=== PATIENT | female | born 1960 | race Caucasian/White ===

== ENCOUNTER → 2024-04-24 08:46 | Outpatient (REF) | payer MEDICARE, OTHER, SELFPAY ==
[2024-04-24 09:48] LABS: % Eosinophils 4.7 % (0-6); % Immature Granulocytes 0.3 % (0-0.5); % Lymphocytes 27.5 % (20.5-51.1); % Monocytes 5.7 % (1.7-9.3); % Neutrophils 60.8 % (42.2-75.2); Absolute Basophils 0.1 10^3/uL (0-0.2); Absolute Eosinophils 0.3 10^3/uL (0-0.7); Absolute Lymphocytes 1.7 10^3/uL (1.2-3.4); Absolute Monocytes 0.4 10^3/uL (0.1-0.6); Absolute Neutrophils 3.8 10^3/uL (1.4-6.5); Hematocrit 39.7 % (37.0-47.0); Hemoglobin 13.9 g/dL (12.0-16.0); Mean Corpuscular Hgb 36.2 pg (27.0-31.0); Mean Corpuscular Volume 103.4 fL (81.0-99.0); Mean Platelet Volume 9.8 fL (7.4-10.4); Nucleated Red Blood Cells % 0 %; Platelet Count 266 10^3/uL (130-400); Red Blood Cell Count 3.84 10^6/uL (4.20-5.40); Red Cell Dist. Width 12.4 % (11.5-14.5); White Blood Cell Count 6.2 10^3/uL (4.8-10.8)
[2024-04-24 09:52] LABS: Urine Albumin Negative (Neg - Trace); Urine Bilirubin Negative (Negative); Urine Character Slightly Cloudy (Clear); Urine Color Yellow; Urine Glucose Negative (Negative); Urine Ketone Negative (Negative); Urine Leukocyte 2+ (Negative); Urine Nitrite Negative (Negative); Urine Occult Blood Trace (Negative); Urine Urobilinogen Negative (Neg - 1+)
[2024-04-24 10:14] LABS: ALT (SGPT) 15 U/L (0-35); AST (SGOT) 19 U/L (14-36); Albumin 4.1 g/dl (3.5-5.0); Alkaline Phosphatase 72 U/L (38-126); Blood Urea Nitrogen 15 mg/dl (7-17); Calcium 9.7 mg/dl (8.4-10.2); Carbon Dioxide 22 mmol/L (22-30); Chloride 108 mmol/L (98-107); Glucose 102 mg/dl (70-99); HDL Cholesterol 58 mg/dl; LDL Cholesterol, Calculated 102 mg/dl; Potassium 4.6 mmol/L (3.5-5.1); Sodium 137 mmol/L (135-145); Total Bilirubin 0.8 mg/dl (0.2-1.3); Total Cholesterol 179 mg/dl (50-199); Total Protein 6.2 g/dl (6.3-8.2); Triglyceride 95 mg/dl (10-149); Very Low Density Lipoprotein 19 mg/dl (0-30); eGFR > 60.00
[2024-04-24 10:43] LABS: TSH 0.06 uIU/ml (0.47-4.68)
[2024-04-24 11:28] LABS: Microalbumin, Random Urine 3.8 mg/dl (0.6-1.7)
[2024-04-24 15:09] LABS: Glycohemoglobin (HgbA1c) 5.1 % (4.0-5.6)
[2024-04-24 15:10] LABS: Urine Squamous Cell >30 /LPF (Few)
[2024-04-24 15:31] LABS: Urine Amorphous Seen; Urine Bacteria Many (Negative); Urine Red Blood Cell 0-2 /HPF (0-2); Urine White Cell 80-90 /HPF (0-5)
== END ==
LOC: REG 08:46
PROVIDERS: ATTENDING PHYSICIAN Nurse Practitioner Family
DX: Z00.00 Encounter for general adult medical examination without abnormal findings (principal); E78.2 Mixed hyperlipidemia; E03.9 Hypothyroidism, unspecified; Z13.89 Encounter for screening for other disorder; E11.69 Type 2 diabetes mellitus with other specified complication; Z13.0 Encounter for screening for diseases of the blood and blood-forming organs and certain disorders involving the immune mechanism; R73.03 Prediabetes
CPT/HCPCS: 36415; 80053; 80061; 81003; 81015; 82043; 83036; 84443; 85025

== ENCOUNTER → 2024-05-08 12:08 | Outpatient (REF) | payer MEDICARE, OTHER, SELFPAY | LOC: PAVMRI 12:08 | PROVIDERS: ATTENDING PHYSICIAN Orthopaedic Surgery; PRIMARYCARE PHYSICIAN Nurse Practitioner Family | DX: M48.062 Spinal stenosis, lumbar region with neurogenic claudication (principal) | CPT/HCPCS: 72158; A9575 ==

== ENCOUNTER 2024-07-18 04:52 | Inpatient (IN) | payer MEDICARE, OTHER, SELFPAY ==
[2024-07-18] VITALS (18 sets, daily range): BP systolic 111–170; BP diastolic 82–126; BMI 36.3; BMI 33.7
--- NOTE | 2024-07-18 01:31 | ED.GENMED ---
History of Present Illness
General
Chief Complaint: Breathing Problem
Source: patient and spouse
Exam Limitations: none
Time Seen by Provider: 07/18/24 01:25
Nursing documentation reviewed up to this point in time: agreed with
History of Present Illness
History of Present Illness:
63-year-old female with a past medical history of hypertension, asthma, hypothyroidism who presents to the emergency room for evaluation of shortness of breath. Patient reports that symptoms have been gradually worsening since Saturday but became
acutely worse tonight while she was walking upstairs about an hour ago. She says that she has shortness of breath and wheezing associated with frequent cough. She says triggers are mold, pet dander. She says that she has frequent flareups and is
on as needed albuterol as well as Spiriva. Has been using these without relief. She says symptoms today seem consistent with prior asthma exacerbations. She denies any chest pain. She denies any swelling or pain in the legs. She denies any
fevers or chills or recent URI symptoms. She denies any other complaints.
Review of Systems
Review of Systems
All Other Systems: ROS reviewed and negative except as documented in HPI and ROS
Constitutional: Denies fever or chills
Respiratory: Reports cough and trouble breathing
Cardiac: Denies chest pain or palpitations
ABD/GI: Denies abdominal pain, nausea or vomiting
: Denies flank pain
Musculoskeletal: Denies edema
Neurological: Denies dizzy or headache
Phy Exam
Physical Exam
Physical Exam:
General: Awake, alert, oriented x3; no acute distress
Head: Normocephalic, atraumatic
Eyes: Conjunctiva normal, sclera anicteric
Throat: Airway intact, handling secretions
Neck: Trachea midline, no JVD
Lungs: Patient is tachypneic with respiratory rate of 24-28; pulse ox acceptable on room air; patient is coughing occasionally during exam but on lung auscultation no significant wheezing appreciated, no rales or rhonchi
Heart: Tachycardia with regular rhythm, no murmurs, gallops, or rubs
Abd: Soft, non distended, nontender
Neuro: No gross deficits
Skin: no rash
Extremities: No edema in extremities, equal pulses in all extremities
Scores
Heart Failure Risk
Heart Failure Risk Score: Not Applicable
Heart Score for Chest Pain Patients
STEMI patient?: Not applicable
Withdrawal Assessment of Alcohol
Withdrawal Assessment Completed?: Not applicable
Course
Orders/Labs/Results
Orders:
Orders
07/18/24 01:25
Ipratropium/Albuterol Sulfate [Duoneb] 3 ml INH R NOW STA
MethylPREDNISolone PF [Solu-Medrol Pf] 125 mg IV NOW STA
07/18/24 01:26
CR Chest - 2 Views Urgent
Comment:
Reason For Exam: sob,cough
07/18/24 01:47
COVID-19 Antigen Urgent
Source: Nasal Swab
Complete Blood Count/With Diff Urgent
D-Dimer Urgent
PTT Urgent
Comment: ADD ON
Prothrombin Time Urgent
Comment: ADD ON
Influenza A+B Rapid Molecular Urgent
MILADIS Source: Nasal Swab
Specimen Description:
07/18/24 02:16
Comprehensive Metabolic Panel Urgent
07/18/24 02:20
CT Chest Pe Study Urgent
Comment:
Reason For Exam: sob, tachycardia, tachypnea
Ipratropium/Albuterol Sulfate [Duoneb] 3 ml INH R NOW STA
07/18/24 02:37
Electrocardiogram (*1) Urgent
Reason for Study: Shortness of Breath
EKG- Treatment ONCE
07/18/24 03:26
Heparin 8,200 units IV NOW STA
07/18/24 03:[address] Non Medication Order As Directed
Physician Order: PTT 6 hours after initial start of Heparin infusion
07/18/24 03:30
Heparin 25759 Units/250 ml 25,000 units in 250 ml IV PER PROTOCOL
Weight to be used for heparin protocol in kilograms (kg):: 102
Protocol:: DVT/PE
PTT Goal Range to be used:: PTT 73 to 111 seconds
Order type:: Initial
INITIAL Infusion Dose (UNITS/KG/hr) & then follow protocol:: 18 units/kg/hr
Infusion Dose in UNITS/hr & then follow protocol (UNITS/hr):: 1,800
INFUSION RATE in mL/hr & then follow protocol (mL/hr):: 18
For DVT/PE algorithm, re-bolus for low PTT?: Yes
PTT less than or equal to 64 seconds:: Re-bolus 80 units/kg (max 10,000units). Increase by 400 units/hr
(+ 4mL/hr)
PTT 64.1 to 72.9 seconds:: Re-bolus 40 units/kg (max 5,000 units). Increase by 200 units/hr
(+ 2mL/hr)
PTT 73 to 111 seconds:: Target Range. No change in rate.
PTT 111.1 to 130.9 seconds:: Decrease rate by 200 units/hr (- 2 mL/hr)
PTT 131 to 199.9 seconds:: HOLD for 1 hr. Then decrease by 300 units/hr (- 3mL/hr)
PTT greater than or equal to 200 seconds:: HOLD for 2 hrs & Notify Provider. Then decrease by 400 units/hr
(- 4mL/hr)
Lab follow-up:: Each change, PTT q6h until 2 consecutive are therapeutic. Then
PTT daily.
07/18/24 03:32
NT-proBNP Urgent
Troponin I Urgent
07/18/24 03:33
Add On- LAB Urgent
Tests Added?: pt/inr, ptt
07/18/24 03:40
Heparin 4,100 units IV PRN PRN
Heparin 8,200 units IV PRN PRN
07/18/24 04:00
Flush (0.9% Sodium Chloride) [Flush (Nss)] See Dose Instructions IV PER PROTOCOL
Abnormal Lab Results
07/18/24 07/18/24
01:47 02:16
WBC 11.1 H 10^3/uL
(4.8-10.8)
RBC 4.14 L 10^6/uL
(4.20-5.40)
MCH 33.1 H pg
(27.0-31.0)
Absolute Neuts (auto) 6.8 H 10^3/uL
(1.4-6.5)
Absolute Monos (auto) 0.8 H 10^3/uL
(0.1-0.6)
D-Dimer 2.29 H ug/mlFEU
(0.00-0.50)
Chloride 110 H mmol/L
(98-107)
Carbon Dioxide 16 L mmol/L
(22-30)
BUN 18 H mg/dl
(7-17)
Glucose 120 H mg/dl
(70-99)
Total Protein 6.1 L g/dl
(6.3-8.2)
07/18/24 01:47
07/18/24 02:16
Vital Signs
Initial and Last Documented VS:
Initial Vital Signs
Temp Pulse Resp BP Pulse Ox
36.8 C 112 24 161/100 96
07/18/24 01:15 07/18/24 01:15 07/18/24 01:15 07/18/24 01:15 07/18/24 01:15
Last Documented Vital Signs
Temp Pulse Resp BP Pulse Ox
36.8 C 123 23 133/86 95
07/18/24 01:15 07/18/24 03:45 07/18/24 03:45 07/18/24 03:37 07/18/24 03:45
MDM/Problems Addressed
Differential Diagnosis Includes:
Asthma exacerbation, pneumonia, PE, anemia, pulmonary edema/CHF
MDM/Problems Addressed:
63-year-old female presents to the emergency room for evaluation of shortness of breath associate with coughing that she says consistent with prior asthma flares. No relief with her home albuterol. She arrives to us hypertensive, tachycardic,
tachypneic. Physical exam as above�notably while she does have occasional coughing throughout exam she does not have notable wheezing. Could be a mild asthma flare but given absence of wheezing I think is reasonable to rule out alternate etiology.
Will place an IV send labs including a CBC and a CMP. Check a D-dimer. Check chest x-ray. Will treat with steroid as well as DuoNeb treatment. Monitor closely reassess after the above.
Initial labs reviewed: CBC shows marginal leukocytosis, CMP no clinically significant abnormalities. Chest x-ray no acute disease. D-dimer was positive�will proceed with CTA to rule out PE. Patient had slight improvement with DuoNeb but she says
effect is already wearing off�will repeat DuoNeb.
CTA chest reviewed by milena to be positive for right-sided PE. Awaiting final radiology report. Discussed with patient she has no history of DVT/PE. Added on coags, troponin, BNP. Plan to start heparin infusion. Pulse ox low normal
93-94%�placed on oxygen for comfort.
Case discussed with vision radiologist: Positive for bilateral PE right greater than left with some signs of right heart strain. PERT alert called. Plan to discuss with pulmonary.
Case discussed with pulmonary�they are reviewing imaging and will provide recommendations. Patient already on heparin drip. Case discussed with hospitalist for admission.
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 Updated hospitalist.
Chronic conditions affecting care:
Asthma
Acute Exacerbation and/or Progression of Chronic Illness:
Acutely hypertensive likely related to respiratory symptoms�will treat respiratory issues but hold on emergent antihypertensive therapy for now
Acute Exacerbation and/or Progression of Chronic Illness: HTN
*Radiology
Radiology exam reviewed: preliminary read by ED provider
*Pulse Oximetry
Patient hypoxic: no
*EKG
Interpreted by ED Provider?: Yes
Heart Rate: 113
Rate: tachycardiac
Rhythm: sinus and sinus tachycardia
Interval: normal interval
QRS Pattern: low voltage
Ischemia: no ischemia
*Critical Care Note
Total Time (30-74mins, 75-104mins- exclusive of procedures): Not Applicable
Data Reviewed
Review of Other/Old Records Reveals: Labs and Records
Source: patient and spouse
Patient Management
Discussion with other providers: Hospitalist (Discussed with hospitalist), General Office Dispatcher (Discussed with professor of violin) and Radiologist (Discussed with radiologist)
Escalation/DeEscalation of care consider admission/obs:
Admission indicated
ED Attending Note
-
Portions of this chart may have been created with voice recognition software.� Occasional wrong word or��sound alike� substitutions may have occurred due to the inherent limitations of voice recognition software.
Discharge Plan
Departure
Patient Disposition: Admit
Date of Disposition: 07/18/24
Time of Disposition: 03:46
Admit to doctor: Lexie
Presentation/result/management discussed w/ accepting MD/DO: Hospitalist
Discharge Problem:
Pulmonary embolism
Referrals:
Mary Moe CRNP [Family Provider] -
Interventions
Interventions:
*Risk Screen - Suicide Last Done: 07/18/24 01:15
*General Assessment Last Done: 07/18/24 01:15
*Neglect/Abuse Screening Last Done: 07/18/24 01:15
ED- Fall Risk Assessment Last Done: 07/18/24 01:15
*ED COVID-19 Vaccine History Last Done: 07/18/24 01:15
ED- Cardiac Assessment Last Done: 07/18/24 01:45
ED- Pulmonary Assessment Last Done: 07/18/24 01:45
Discharge Date and Time
Print Language: S[place]APORE[place]
[2024-07-18] MEDS: DUONEB 3 ML INH ×2 (01:38→02:23)
[2024-07-18] MEDS: SOLU-MEDROL PF 125 MG IV (01:45)
[2024-07-18 02:00] LABS: % Basophils 1.1 % (0-2); % Eosinophils 3.7 % (0-6); % Immature Granulocytes 0.2 % (0-0.5); % Lymphocytes 27.3 % (20.5-51.1); % Monocytes 6.8 % (1.7-9.3); % Neutrophils 60.9 % (42.2-75.2); Absolute Basophils 0.1 10^3/uL (0-0.2); Absolute Eosinophils 0.4 10^3/uL (0-0.7); Absolute Monocytes 0.8 10^3/uL (0.1-0.6); Absolute Neutrophils 6.8 10^3/uL (1.4-6.5); Hematocrit 40.4 % (37.0-47.0); Hemoglobin 13.7 g/dL (12.0-16.0); Mean Corp Hgb Conc. 33.9 g/dL (33.0-37.0); Mean Corpuscular Hgb 33.1 pg (27.0-31.0); Mean Corpuscular Volume 97.6 fL (81.0-99.0); Mean Platelet Volume 10.2 fL (7.4-10.4); Nucleated Red Blood Cells % 0 %; Platelet Count 205 10^3/uL (130-400); Red Blood Cell Count 4.14 10^6/uL (4.20-5.40); Red Cell Dist. Width 13.5 % (11.5-14.5); White Blood Cell Count 11.1 10^3/uL (4.8-10.8)
[2024-07-18 02:08] LABS: D-Dimer 2.29 ug/mlFEU (0.00-0.50)
[2024-07-18 02:22] LABS: COVID-19 Antigen Negative (Negative)
[2024-07-18 02:43] LABS: ALT (SGPT) 13 U/L (0-35); AST (SGOT) 17 U/L (14-36); Albumin 3.9 g/dl (3.5-5.0); Alkaline Phosphatase 75 U/L (38-126); Blood Urea Nitrogen 18 mg/dl (7-17); Calcium 8.9 mg/dl (8.4-10.2); Carbon Dioxide 16 mmol/L (22-30); Chloride 110 mmol/L (98-107); Estimated Creatinine Clearance 97 ml/min; Glucose 120 mg/dl (70-99); Potassium 4.2 mmol/L (3.5-5.1); Sodium 141 mmol/L (135-145); Total Bilirubin 0.4 mg/dl (0.2-1.3); Total Protein 6.1 g/dl (6.3-8.2); eGFR > 60.00
[2024-07-18 03:45] LABS: INR 1.09; PT 13.9 Sec (11.4-14.6)
[2024-07-18 03:46] LABS: APTT 25.1 Sec (23.4-35.0)
[2024-07-18] MEDS: HEPARIN 8200 UNITS IV ×2 (03:51→18:37)
[2024-07-18] MEDS: HEPARIN 25000 UNITS/250 ML IV ×2 (03:54→18:18)
[2024-07-18 04:03] LABS: NT-proBNP 5880 pg/ml; Troponin I 0.023 ng/ml
--- NOTE | 2024-07-18 04:53 | HPS.HSE ---
Family Physician
-
Family Physician: ROSEMARIE Guaman
Chief Complaint
-
Shortness of breath, dyspnea on exertion
History of Present Illness
This is a 63-year-old female with a past medical history of hypertension, hyperlipidemia, asthma that is well-controlled presents to the emergency department with worsening shortness of breath and dyspnea for the last 4 to 5 days.
Patient reported that she developed worsening shortness of breath and dyspnea about 4 days ago. She started using her inhaler and noticed that it was not helping. Usually in the past inhalers are very effective. She continues to have dyspnea on
exertion and today felt like she could not catch her breath at all so she decided to come to the emergency department. The patient denies feeling any chest pain. She reports some discomfort that she associates with breathing effort. She denied
any lower extremity swelling or calf tenderness. She denies feeling dizzy or lightheaded.
Patient denied any recent immobilization, airplane flights, prolonged driving, injuries or hospitalization. She denies any recent cold or flulike infection. She has no recent COVID-19 infection. She denies any prior history of venous
thromboembolism and denies family history of such. She has up-to-date colonoscopy with repeat studies from 10 years pending this year. She also has a pending mammogram.
In the emergency department she was hypoxic requiring 4 L to maintain a sat of 95%. Blood pressure was stable at 130/90 and she was tachycardic to the 120s. ECG shows sinus tachycardia at a rate of 113 without any acute changes. Initial troponin
was 0.02. BNP was elevated at 5000. CBC and chemistries were unremarkable.
CT angio shows bilateral pulmonary emboli with multiple segmental and subsegmental clots, there is suspicion of RV strain on the CT scan.
Medical History
Past Medical History
Past Medical History: Reports Asthma, HTN and Hypothyroidism
Past Surgical History: Reports Orthopedic (Lumbar laminectomy)
Social History
Tobacco: Non-smoker
Alcohol: Daily
Drug: None
Personal:
Living: With Family
Employment: Employed
Family History
Family History: Hypertension
Allergies / Home Medications
Allergies reflects when Allergies were last updated in [employer].
Home Medications with original date entered in [employer]
Allergy/Medication List:
Allergies
Allergy/AdvReac Type Severity Reaction Status Date / Time
Penicillins Allergy Unknown Verified 07/18/24 01:15
Home Medications
albuterol 90 mcg/actuation aerosol inhaler 90 mcg inhalation Q6 PRN wheezing 07/18/24
conj estrogen-medroxyprogesterone 0.625 mg-2.5 mg tablet (Prempro) 1 tab PO DAILY 07/18/24
diltiazem HCl 120 mg capsule,extended release 24 hr (Cartia XT) 120 mg PO DAILY 07/18/24
estradiol 0.01% (0.1 mg/gram) vaginal cream 1 g vaginal WEEKLY 07/18/24
fluticasone 250 mcg-salmeterol 50 mcg/dose blistr powdr for inhalation (Advair Diskus) 1 inh inhalation Q12H 07/18/24
levothyroxine 175 mcg tablet 175 mcg PO DAILY 07/18/24
lisinopril 10 mg tablet 10 mg PO DAILY 07/18/24
montelukast 10 mg tablet (Singulair) 10 mg PO DAILY 07/18/24
oxybutynin chloride 15 mg tablet,extended release 24 hr 15 mg PO DAILY 07/18/24
tramadol 50 mg tablet 50 mg PO Q8H PRN pain 07/18/24
Review of Systems
-
History Source: Patient
Constitutional: Reports No Symptoms
EENT: Reports No Symptoms
Respiratory: Reports Trouble Breathing
Cardiac: Reports No Symptoms
Abdomen/GI: Reports No Symptoms
: Reports No Symptoms
Musculoskeletal: Reports No Symptoms
Skin: Reports No Symptoms
Neurological: Reports No Symptoms
Endocrine: Reports No Symptoms
Hematologic/Lymphatic: Reports No Symptoms
Psych: Reports No Symptoms
Physical Exam
Vital Signs
Vital Signs
Temp Pulse Resp BP Pulse Ox
98.3 F 120 26 125/91 94
07/18/24 01:15 07/18/24 04:45 07/18/24 04:45 07/18/24 04:00 07/18/24 04:45
Physical Exam
General: Well Developed, Well Nourished and Respiratory Distress
HEENT: NormoCephalic, Anicteric, Moist mucous membranes and Atraumatic
Respiratory: Clear
Cardiac: S1/S2, Regular Rhythm and Tachycardia
Breast: Deferred by me
GI: Soft, Non Tender, Non Distended and Normal Bowel Sounds
Rectal: Deferred by Provider
Genito-urinary: Deferred by me
Musculoskeletal: No Clubbing, No Cyanosis and No Edema
Skin: Warm
Neuro: AO x 3
Hematologic/Lymphatic: No Lymphadenopathy
Psych: Calm and Intact Judgment/Insight
Laboratory Results
-
07/18/24 01:47
07/18/24 02:16
Laboratory Results
PT Cancelled 07/18/24 03:20
INR Cancelled 07/18/24 03:20
APTT Cancelled 07/18/24 03:20
Total Bilirubin 0.4 mg/dl (0.2-1.3) 07/18/24 02:16
AST 17 U/L (14-36) 07/18/24 02:16
ALT 13 U/L (0-35) 07/18/24 02:16
Alkaline Phosphatase 75 U/L (38-126) 07/18/24 02:16
Troponin I 0.023 ng/ml 07/18/24 03:32
Data Reviewed
-
CT Scan: Report Reviewed by me
Medical Tests (Nuc Med, Echo, EKG etc): Image Personally Visualized and interpreted
Lab Data: Labs Reviewed by me
Old Records: Reviewed
Impression/Plan
-
IMPRESSION:
63 y.o female with apparent unprovoked bilateral PE affecting segmental and subsegmental branches. Hemodynamically stable but requiring 4 L NC. ECG is non-ischemic and trop is negative. Question RV strain on CT scan. BNP is elevated which may
support RV strain. No prior h/o CHF. No peripheral or pulmonary edema.
PLAN:
1. Pulmonary emboli - Moderate to high risk PE by sPESI. No massive/submassive PE by current findings.
- admit to IMU
- IV heparin for now
- echo for additional staging
- pulmonary consulted, per discussion with ED, holding off on IR consult till evaluation, LE dopplers per pulmonary
- will place her on a diet for now
- supplemental oxygen, pain control as needed
2. Asthma - Lungs are clear without wheezing and show good air movement. Asthma exacerbation is not contributing to her symptoms
- continue ICS/LABA bid and daily montelukast
- prn albuterol
3. HTN - Hemodynamically stable.
- continue diltiazem and lisinopril w/ hold parameters
4. Hypothyroid
- levothyroxine 175 mcg daily
Code Status - Full Code
--- NOTE | 2024-07-18 06:13 | PTCARENOTE ---
Received patient from the ED on a heparin gtt 1800 units/hr on 4 liters NC.
[2024-07-18] MEDS: SYNTHROID 175 MCG PO (06:20)
[2024-07-18] MEDS: CARDIZEM CD 120 MG PO (07:27)
[2024-07-18] MEDS: PROTONIX 40 MG PO (07:27)
[2024-07-18] MEDS: DITROPAN 5 MG PO ×3 (07:28→21:00)
[2024-07-18] MEDS: ZESTRIL 10 MG PO (07:28)
[2024-07-18] MEDS: SINGULAIR 10 MG PO (07:28)
[2024-07-18] MEDS: ADVAIR HFA 115/21 MCG INHALER 2 PUFF INH ×2 (08:13→19:48)
--- NOTE | 2024-07-18 11:43 | W.PN.HOSP.TC ---
Addendum entered and electronically signed by Antwan Last MD 07/18/24 15:25:
Ultrasound noted. Results discussed with the patient
Original Note:
Today's Communication/Plan
-
Heparin gtt
Assessment / Plan
Assessment / Plan
62-year-old female with shortness of breath no recent surgeries or travel. No personal history of Blood clots or family history of blood clots. No history of malignancy. No weight loss.
CT [id number] to moderate motion artifact. Bilateral pulmonary emboli with multiple segmental and subsegmental branches right worse than left. Mild cardiomegaly. Suspected right heart strain and dilated main pulmonary artery. 1.4 cm
groundglass nodule in the right upper lobe and 1.1 cm groundglass nodule in the left lower lobe
Mildly tachypneic
CVS: S1-S2 normal
Chest: CTA B/L
Abdomen: Soft, NT / Bowel sounds present
Extremities: No edema, or tenderness
RUBY ON RAILS CONSULTANT: Non focal exam
# Unprovoked bilateral PE
She is on hormonal supplements
Started on heparin drip
Echo
Pulmonary has been consulted. ER discussed with pulmonary holding off on thrombectomy
Lower extremity Dopplers
Supplemental oxygen
Needs age-appropriate malignancy screening and hematology evaluation at some point
(last colonoscopy was over 10 years ago and due for mammogram)
# Lung nodule- Needs OP Follow up
# Asthma-NOS
Continue Singulair, Advair or equivalent, albuterol inhaler/nebulizer as needed
# Hypothyroidism-continue Synthroid
# Hypertension- hold off on lisinopril and watch blood pressure
# Multilevel Degenerative disc disease Lumbar spinal stenosis
# H/O ESBL E Coli
# Obesity per BMI
# Full code
Discussed with nursing
watch closely
Pt prefers to switch to ELIQUIS when it is time to transition
Anticipated Discharge: 24 - 48 hours
Subjective/Interval History
-
Date of Service: July 18, 2024
Objective Data
-
Labs:
Laboratory Results
07/18/24 07/18/24 07/18/24
01:47 02:16 03:20
WBC 11.1 H
Hgb 13.7
Hct 40.4
Plt Count 205
PT 13.9 Cancelled
INR 1.09 Cancelled
APTT 25.1 Cancelled
Sodium Cancelled 141
Potassium Cancelled 4.2
Chloride Cancelled 110 H
Carbon Dioxide Cancelled 16 L
BUN Cancelled 18 H
Creatinine Cancelled 0.7
Glucose Cancelled 120 H
Calcium Cancelled 8.9
Total Bilirubin Cancelled 0.4
AST Cancelled 17
ALT Cancelled 13
Alkaline Phosphatase Cancelled 75
07/18/24 07/18/24 07/18/24
10:21 11:06 18:00
WBC
Hgb
Hct
Plt Count
PT
INR
APTT 176.0 H* Pending
Sodium Cancelled Pending
Potassium Cancelled Pending
Chloride Cancelled Pending
Carbon Dioxide Cancelled Pending
BUN Cancelled Pending
Creatinine Cancelled Pending
Glucose Cancelled Pending
Calcium Cancelled Pending
Total Bilirubin
AST
ALT
Alkaline Phosphatase
Vital Signs:
Vital Signs
Temp Pulse Resp BP Pulse Ox
97.7 F 105 29 132/110 96
07/18/24 11:27 07/18/24 09:00 07/18/24 09:00 07/18/24 09:00 07/18/24 09:00
[2024-07-18 13:37] LABS: Blood Urea Nitrogen 13 mg/dl (7-17); Calcium 9.9 mg/dl (8.4-10.2); Carbon Dioxide 18 mmol/L (22-30); Chloride 108 mmol/L (98-107); Estimated Creatinine Clearance 108 ml/min; Glucose 168 mg/dl (70-99); Magnesium 1.9 mg/dl (1.6-2.3); Potassium 4.8 mmol/L (3.5-5.1); Sodium 142 mmol/L (135-145); eGFR > 60.00
--- NOTE | 2024-07-18 14:06 | CON.PUL ---
Consultation
Consultation Request
Date/Time Consultation Requested: 07/18/2024
Date/Time Consultation Performed: 07/18/2024
Requesting Provider: Dr. Last
Performing Provider: Dr. Trae Jones
Reason for Consultation: Acute pulmonary embolism
Medical History
-
History of Present Illness:
63-year-old woman with past medical history significant for asthma, hypertension, hypothyroidism, non-smoker, on medroxyprogesterone tablets daily who was on her usual state of health. Reports that since Saturday started reporting increased
shortness of breath, progressive despite using albuterol for her asthma. Denied any cough, wheezing or phlegm production. Patient states that she is usually sedentary due to chronic back pain.
She has gained weight throughout the years.
Denies prior history of clotting.
Denies prior history of cancer
Reports being up-to-date with lung cancer screening.
Denies any long distance travel or recent surgery.
She does have history of spinal stenosis status postsurgery in November 2023. Completed pulmonary rehabilitation.
In the emergency room found to be slightly tachycardic, requiring low rate supplemental oxygen. Reporting some shortness of breath. Not hypotensive.
Troponin was normal but proBNP was elevated.
CT chest with RV strain and moderate clot burden. No saddle component.
Denies any leg edema
Past Medical History
Past Medical History: Other (See assessment and plan)
Social History
Tobacco: Non-smoker
Alcohol: Daily
Drug: None
Personal:
Living: With Family
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
Family History
Family History: Reviewed & Not Pertinent
Allergies / Home Medications
Allergies
Allergy/AdvReac Type Severity Reaction Status Date / Time
Penicillins Allergy Unknown Verified 07/18/24 01:15
Home Medications
�Medication �Instructions �Recorded �Confirmed �Last Taken �Type
albuterol 90 mcg/actuation aerosol 90 mcg inhalation Q6 PRN wheezing 07/18/24 07/18/24 Unknown History
inhaler
conj estrogen-medroxyprogesterone 1 tab PO DAILY 07/18/24 07/18/24 Unknown History
0.625 mg-2.5 mg tablet (Prempro)
diltiazem HCl 120 mg 120 mg PO DAILY 07/18/24 07/18/24 Unknown History
capsule,extended release 24 hr
(Cartia XT)
estradiol 0.01% (0.1 mg/gram) 1 g vaginal WEEKLY 07/18/24 07/18/24 Unknown History
vaginal cream
fluticasone 250 mcg-salmeterol 50 1 inh inhalation Q12H 07/18/24 07/18/24 Unknown History
mcg/dose blistr powdr for
inhalation (Advair Diskus)
levothyroxine 175 mcg tablet 175 mcg PO DAILY 07/18/24 07/18/24 Unknown History
lisinopril 10 mg tablet 10 mg PO DAILY 07/18/24 07/18/24 Unknown History
montelukast 10 mg tablet 10 mg PO DAILY 07/18/24 07/18/24 Unknown History
(Singulair)
oxybutynin chloride 15 mg 15 mg PO DAILY 07/18/24 07/18/24 Unknown History
tablet,extended release 24 hr
tramadol 50 mg tablet 50 mg PO Q8H PRN pain 07/18/24 07/18/24 Unknown History
Review of Systems
-
History Source: Patient
All other systems: Negative unless noted
Vitals / Labs / Diagnostic Testing
Vital Signs
Temp Pulse Resp BP Pulse Ox
97.7 F 105 29 132/110 96
07/18/24 11:27 07/18/24 09:00 07/18/24 09:00 07/18/24 09:00 07/18/24 09:00
Lab Data
07/18/24 01:47
07/18/24 12:45
Laboratory Results
07/18/24 07/18/24 07/18/24
01:47 03:20 10:21
PT 13.9 Cancelled
INR 1.09 Cancelled
APTT 25.1 Cancelled 176.0 H*
Microbiology
07/18/24 01:47 Nasal Swab Influenza Types A & B (BEKA) - Final
Negative for Influenza A & B, NAAT
Negative results must be combined with clinical observations
and patient history.
Nucleic Acid Amplification test (NAAT)performed on the
[employer] platform.
Diagnostic Testing:
Physical Exam
-
HEENT: Normocephalic
Cardiovascular: S1/S2
Respiratory: Clear and Non-Labored Respirations
GI: Soft and Non Distended
Neurology: Awake, AO x 3 and No Motor Deficits
Skin: Warm
General: Respiratory Distress and Comfortable
Assessment
-
63-year-old woman with past medical history. Came to the hospital complaining of 4 to 5 days of shortness of breath. Found to have moderate to large clot burden without saddle embolism-admitted for further evaluation. Consulted for opinion
management.
Unprovoked submassive pulmonary embolism
CT angiogram 07/18/2024:. There is extensive segmental pulmonary emboli throughout the bilateral pulmonary arteries extending into the subsegmental branches. Signs of RV strain
Increased proBNP/negative troponin
Mild tachycardia/not hypotensive
Mild respiratory insufficiency
Incidental lung nodule: 2. 1.7 cm groundglass opacity within the right upper lobe. There is a possible left upper lobe groundglass opacity although this may be related to motion artifact.
Mild compression deformity of the T12 vertebral body, similar to prior MRI. Prior posterior/lateral left sixth through 10th rib fractures.
Conditions present prior admission:
Spinal stenosis
Status post surgery November 2023-lumbar
Obesity
Hypertension
History of asthma
Hypothyroidism
Reports being up-to-date with cancer screening-colonoscopy was due this year.
Assessment and plan:
I discussed with the emergency room last night, intermediate risk to high risk but patient not hypotensive. Slightly tachycardic with mild oxygen requirements.
Currently on 2 L nasal cannula pulse ox 94%. Able to speak in full sentences.
I did not appreciate any significant JVD.
Do not appreciate significant leg edema.
Heart rate is improved. In the emergency room heart rate was more elevated due to ongoing albuterol usage.
-
This afternoon feeling better but still slightly short of breath.
Denies any leg edema.
Event seems to be unprovoked. Patient is very sedentary at home and has been gaining weight. In addition, she is on hormonal replacement. Will need to be addressed in the outpatient setting.
Obtain echocardiogram
Obtain lower extremity Dopplers
Heparin drip follow PTT-if there is decompensation then we can consider either intra-arterial thrombolysis versus embolectomy. At this point we will hold off risk outweighed benefit in this particular case.
I discussed with the patient in detail pros and cons of more aggressive care. For now she would prefer to continue with current care which I agree.
Continue telemetry monitoring
-
Eventual repeat colonoscopy she is due this year.
She reports being up-to-date with other cancer screening for her age.
-
Incidental lung nodule: Will need to repeat CAT scan in 3 months.
Patient is a never smoker
Low risk for lung cancer
May be atelectatic.
-
History of asthma: Not bronchospastic.
Continue montelukast
Hold albuterol for now.
-
Extensive discussion with patient and family members at the bedside by Dr. Jones 07/18/2024.
Will continue to follow
--- NOTE | 2024-07-18 17:13 | CM ---
Patient with Dx Unprovoked bilateral PE. O2 2L. Receiving Heparin gtt.
Met with patient who resides with her huband in a 2 story house with 1 REY.
The patient has been independent in ADLs and ambulation using her SPC.
DME - [facility], [facility]
VN - prior [facility]
SNF - none
PCP - Mary Moe
CM Consult; nuno check Eliquis 10 bid for 1 week then 5 BID
Spoke with pharmacist, Ramirez Borjas; patient has no prescription plan until Oct 2024 and would have to pay $743/month after Free Month card for Eliquis for 2 months and unknown if new prescription plan will cover. Her Ramirez pharmacist
confirms she pays for all her prescriptions out of pocket or with GoodRx discount coupon.
Spoke with patient; Patient wants to talk with MD about alternatives to Eliquis---> message to Dr Last
No CM d/c needs identified.
Plan home.
[2024-07-18] MEDS: TESSALON PERLES 200 MG PO (17:57)
[2024-07-18 18:25] LABS: APTT 49.9 Sec (23.4-35.0)
[2024-07-18] MEDS: MELATONIN 5 MG PO (21:00)
[2024-07-19] VITALS (7 sets, daily range): BP systolic 121–141; BP diastolic 86–102; BMI 33.1
[2024-07-19 02:23] LABS: APTT 196.1 Sec (23.4-35.0)
[2024-07-19] MEDS: SYNTHROID 175 MCG PO (05:30)
[2024-07-19] MEDS: TESSALON PERLES 200 MG PO (05:36)
--- NOTE | 2024-07-19 06:25 | PTCARENOTE ---
No acute events overnight. Bedrest. Remains on heparin gtt at 1600 units/hr. Next PTT at 0930.
[2024-07-19] MEDS: ADVAIR HFA 115/21 MCG INHALER 2 PUFF INH ×2 (07:44→20:25)
[2024-07-19] MEDS: ROBITUSSIN 200 MG PO ×2 (08:24→17:26)
[2024-07-19] MEDS: PROTONIX 40 MG PO (08:25)
[2024-07-19] MEDS: CARDIZEM CD 120 MG PO (08:26)
[2024-07-19] MEDS: DITROPAN 5 MG PO ×3 (08:27→20:56)
[2024-07-19] MEDS: SINGULAIR 10 MG PO (08:27)
[2024-07-19] MEDS: ZESTRIL 10 MG PO (08:27)
[2024-07-19] MEDS: HEPARIN 25000 UNITS/250 ML IV (08:32)
[2024-07-19 11:00] LABS: Hematocrit 35.3 % (37.0-47.0); Hemoglobin 12.2 g/dL (12.0-16.0); Mean Corp Hgb Conc. 34.6 g/dL (33.0-37.0); Mean Corpuscular Hgb 33.2 pg (27.0-31.0); Mean Corpuscular Volume 96.2 fL (81.0-99.0); Mean Platelet Volume 10.6 fL (7.4-10.4); Platelet Count 181 10^3/uL (130-400); Red Blood Cell Count 3.67 10^6/uL (4.20-5.40); Red Cell Dist. Width 13.5 % (11.5-14.5); White Blood Cell Count 8.3 10^3/uL (4.8-10.8)
[2024-07-19] MEDS: LOVENOX 95 MG SC ×2 (11:10→23:30)
[2024-07-19 11:12] LABS: APTT 61.6 Sec (23.4-35.0)
--- NOTE | 2024-07-19 11:12 | W.PN.HOSP.TC ---
Addendum entered and electronically signed by Antwan Last MD 07/19/24 16:22:
Acidosis-check VBG
Original Note:
Today's Communication/Plan
-
Lovenox
Assessment / Plan
Assessment / Plan
62-year-old female with shortness of breath no recent surgeries or travel. No personal history of Blood clots or family history of blood clots. No history of malignancy. No weight loss.
CT lccii-rgqaajflfaq-obav to moderate motion artifact. Bilateral pulmonary emboli with multiple segmental and subsegmental branches right worse than left. Mild cardiomegaly. Suspected right heart strain and dilated main pulmonary artery. 1.4 cm
ground glass nodule in the right upper lobe and 1.1 cm ground glass nodule in the left lower lobe
Ultrasound-occlusive DVT in the left posterior tibial, peroneal, popliteal, superficial femoral and common femoral veins and nonocclusive thrombus in the left saphenofemoral junction
CVS: S1-S2 normal
Chest: CTA B/L
Abdomen: Soft, NT / Bowel sounds present
Extremities: No edema, or tenderness
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
# Unprovoked bilateral PE, DVT
She is on hormonal supplements
Started on heparin drip- changed to weight based Lovenox
Echo
Pulmonary has been consulted. ER discussed with pulmonary holding off on thrombectomy
Lower extremity Dopplers
Supplemental oxygen
Needs age-appropriate malignancy screening and hematology evaluation at some point
(last colonoscopy was over 10 years ago and due for mammogram)
Discussed with the patient regarding options NOACs versus Coumadin.
She wants to think about it and let us know tomorrow. Eliquis was priced at her request and it is $743 per month
# Lung nodule- Needs OP Follow up
# Rcyfkb-LPQ-Jzzztxma Singulair, Advair or equivalent, albuterol inhaler/nebulizer as needed
# Hypothyroidism-continue Synthroid
# Hypertension-continue lisinopril and diltiazem
# Multilevel Degenerative disc disease Lumbar spinal stenosis
# H/O ESBL E Coli
# Obesity per BMI
# Full code
Discussed with nursing
Discussed with pulmonary
Discussed with family at bedside
Anticipated Discharge: 24 - 48 hours
Subjective/Interval History
-
Date of Service: July 19, 2024
Objective Data
-
Labs:
Laboratory Results
07/19/24 07/19/24
01:35 10:32
WBC 8.3
Hgb 12.2
Hct 35.3 L
Plt Count 181
APTT 196.1 H* Pending
Sodium Pending
Potassium Pending
Chloride Pending
Carbon Dioxide Pending
BUN Pending
Creatinine Pending
Glucose Pending
Calcium Pending
Vital Signs:
Vital Signs
Temp Pulse Resp BP Pulse Ox
98 F 94 28 135/98 94
07/19/24 07:05 07/19/24 08:26 07/19/24 08:00 07/19/24 08:27 07/19/24 08:00
I&O
07/18/24 07/19/24 07/20/24
06:59 06:59 06:59
Intake Total 480 / 480
Output Total 500 / 500
Balance -20 / -20
--- NOTE | 2024-07-19 11:17 | PTCARENOTE ---
Heparin gtt now DC Lovenox started. Pt may use BSC
[2024-07-19 11:53] LABS: Blood Urea Nitrogen 17 mg/dl (7-17); Calcium 9.4 mg/dl (8.4-10.2); Carbon Dioxide 14 mmol/L (22-30); Chloride 110 mmol/L (98-107); Estimated Creatinine Clearance 92 ml/min; Glucose 123 mg/dl (70-99); Potassium 4.2 mmol/L (3.5-5.1); Sodium 140 mmol/L (135-145); eGFR > 60.00
--- NOTE | 2024-07-19 14:41 | W.PN.PUL3 ---
Today's Communication / Plan
-
Continue Lovenox therapeutic for the next 24 to 48 hours
Telemetry monitoring
Can increase activity around the room as able
Eventual imaging of the chest in the outpatient setting
Assessment
-
63-year-old woman with past medical history. Came to the hospital complaining of 4 to 5 days of shortness of breath. Found to have moderate to large clot burden without saddle embolism-admitted for further evaluation. Consulted for opinion
management.
Unprovoked submassive pulmonary embolism
CT angiogram 07/18/2024:. There is extensive segmental pulmonary emboli throughout the bilateral pulmonary arteries extending into the subsegmental branches. Signs of RV strain
Increased proBNP/negative troponin
Mild tachycardia/not hypotensive
Mild respiratory insufficiency
Incidental lung nodule: 2. 1.7 cm groundglass opacity within the right upper lobe. There is a possible left upper lobe groundglass opacity although this may be related to motion artifact.
Mild compression deformity of the T12 vertebral body, similar to prior MRI. Prior posterior/lateral left sixth through 10th rib fractures.
Conditions present prior admission:
Spinal stenosis
Status post surgery November 2023-lumbar
Obesity
Hypertension
History of asthma
Hypothyroidism
Reports being up-to-date with cancer screening-colonoscopy was due this year.
Assessment and plan:
I discussed with the emergency room last night, intermediate risk to high risk but patient not hypotensive. Slightly tachycardic with mild oxygen requirements-on admission.
-
Overall symptomatically improved
Tachycardia improved
Hemodynamically stable
On low rate supplemental oxygen
Okay to increase activity can walk to the bathroom.
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
-
Lower extremity Dopplers positive for DVT-right lower extremity
Event seems to be unprovoked. Patient is very sedentary at home and has been gaining weight. In addition, she is on hormonal replacement. Will need to be addressed in the outpatient setting.
Obtain echocardiogram-pending.
Okay to transition to Lovenox
If remains stable can transfer to telemetry tomorrow, transition to oral anticoagulants in the next 24 to 48 hours depending on clinical situation.
-
If there is decompensation then we can consider either intra-arterial thrombolysis versus embolectomy. Hold off for now, clinically improving.
Dr. Jones discussed with the patient in detail pros and cons of more aggressive care. For now she would prefer to continue with current care which I agree. 07/18/2024
Continue telemetry monitoring
-
Eventual repeat colonoscopy she is due this year.
She reports being up-to-date with other cancer screening for her age.
-
Incidental lung nodule small, right upper lobe, possibly atelectatic: Will need to repeat CAT scan in 3 months.
Patient is a never smoker
Low risk for lung cancer
-
History of asthma: Not bronchospastic.
Continue montelukast
Hold albuterol for now.
-
Extensive discussion with patient and family members at the bedside by Dr. Jones 07/18/2024 and 07/19/2020.
Will continue to follow
Subjective Data
-
Date of Service:
Date of Service: July 19, 2024
Chief Complaint: Pulmonary Follow Up (Acute pulmonary embolism)
Subjective:
Patient states that she feels better
Has not moved much, has been able to go to the commode without dizziness
Denies any bleeding
Denies any chest pain
Denies lightheadedness
Review of Systems
Cardiopulmonary: Dyspnea (improved)
GI: Abdominal Pain (n) and Nausea (n)
Neuro: Headache (n)
Objective Data
Data Reviewed
Vital Signs / I&O / Oxygen:
Vital Signs
Temp Pulse Resp BP Pulse Ox
98.3 F 101 26 121/94 94
07/19/24 11:05 07/19/24 12:15 07/19/24 12:15 07/19/24 10:00 07/19/24 12:15
Intake and Output
07/18/24 07/19/24 07/20/24
06:59 06:59 06:59
Intake Total 480 / 480
Output Total 500 / 500
Balance -20 / -20
SaO2 94
Nasal Cannula flow liters per 2
minute
Physical Exam
General: Comfortable
HEENT: Normocephalic
Cardiovascular: S1-S2
Respiratory: Non-Labored Respirations
GI: Soft and Non Distended
Neurology: Awake, Alert, AO x 3 and No Motor Deficits
Skin: Warm
Labs/Micro/Reports
Lab Data
07/19/24 10:32
07/19/24 10:32
Laboratory Results
07/18/24 07/19/24 07/19/24
18:08 01:35 10:32
APTT 49.9 H 196.1 H* 61.6 H
Microbiology
07/18/24 01:47 Nasal Swab Influenza Types A & B (BEKA) - Final
Negative for Influenza A & B, NAAT
Negative results must be combined with clinical observations
and patient history.
Nucleic Acid Amplification test (NAAT)performed on the
[employer] platform.
[2024-07-19 17:46] LABS: Venous Blood Gas B.E. -3.9 mmol/L (-4 to +4); Venous Blood Gas HCO3 19.2 mmol/L (22-27); Venous Blood Gas O2 Sat % 99.5 %; Venous Blood Gas pCO2 29 mmHg (35-48); Venous Blood Gas pH 7.43 (7.32-7.43); Venous Blood Gas pO2 159 mmHg (30-50)
--- NOTE | 2024-07-19 20:27 | PTCARENOTE ---
Patient appeared to go into afib for a minute and broke-> already on AC and po cardizem. farm equipment operator provider made aware.
[2024-07-19] MEDS: MELATONIN 5 MG PO (20:56)
[2024-07-20] VITALS (15 sets, daily range): BP systolic 121–153; BP diastolic 76–113; PULSE 98–100; O2SAT 95–96; BMI 33.1
[2024-07-20 04:53] LABS: Hemoglobin 12.2 g/dL (12.0-16.0); Mean Corp Hgb Conc. 33.9 g/dL (33.0-37.0); Mean Corpuscular Volume 97.3 fL (81.0-99.0); Mean Platelet Volume 10.3 fL (7.4-10.4); Platelet Count 169 10^3/uL (130-400); Red Cell Dist. Width 13.5 % (11.5-14.5); White Blood Cell Count 7.1 10^3/uL (4.8-10.8)
[2024-07-20] MEDS: SYNTHROID 175 MCG PO (05:15)
--- NOTE | 2024-07-20 05:40 | PTCARENOTE ---
NO acute events overnight. Remains on 2 liters NC.
--- NOTE | 2024-07-20 06:34 | W.PN.HOSP.TC ---
Today's Communication/Plan
-
wean O2 supplementation as tolerated
cont Lovenox
PT/OT eval
Hematology eval
Assessment / Plan
Assessment / Plan
Physical Exam
General no acute distress sitting up comfortably in bed
CVS: S1-S2 normal
Chest: CTA B/L
Abdomen: Soft, NT / Bowel sounds present
Extremities: No edema, or tenderness
PECAN CLEANER: AOx3
62-year-old female with shortness of breath no recent surgeries or travel. No personal history of Blood clots or family history of blood clots. No history of malignancy. No weight loss.
CT zoxmu-hwfcpnxhhfq-anei to moderate motion artifact. Bilateral pulmonary emboli with multiple segmental and subsegmental branches right worse than left. Mild cardiomegaly. Suspected right heart strain and dilated main pulmonary artery. 1.4 cm
ground glass nodule in the right upper lobe and 1.1 cm ground glass nodule in the left lower lobe
Ultrasound-occlusive DVT in the left posterior tibial, peroneal, popliteal, superficial femoral and common femoral veins and nonocclusive thrombus in the left saphenofemoral junction
# possible Unprovoked vs provoked bilateral PE, DVT
She is on hormonal supplements, endorses reduced ambulation since her spinal stenosis surgery Nov 2024 (ambulates with cane at baseline since surgery)
Started on heparin drip transitioned to weight based Lovenox
Echo results pending
Pulmonary consult appreciated
Supplemental oxygen wean as tolerated
Hematology Eval requested
patient's prescription plan doesn't start until Oct 2024
Eliquis cost prohibitive, priced at $743 per month, discussed with patient
# Lung nodule- Needs OP Follow up
# Sfdiqk-OYV-Mntxuuna Singulair, Advair or equivalent, albuterol inhaler/nebulizer as needed
# Hypothyroidism-continue Synthroid
# Hypertension-continue lisinopril and diltiazem
# Multilevel Degenerative disc disease Lumbar spinal stenosis surgery performed Nov 2024
# H/O ESBL E Coli
# Obesity per BMI
# Full code
PT/OT eval requested
Discussed with patient, pulmonology, and nurse
I spent a total of 50 minutes with the patient or on the floor. More than 50% of this time involved counseling and coordination of care.
Anticipated Discharge: 24 - 48 hours
Subjective/Interval History
-
Date of Service: July 20, 2024
Endorses exertional dyspnea. Remains oxygen dependent 2L
Objective Data
-
Labs:
Laboratory Results
07/20/24
04:30
WBC 7.1
Hgb 12.2
Hct 36.0 L
Plt Count 169
Vital Signs:
Vital Signs
Temp Pulse Resp BP Pulse Ox
97.7 F 97 20 141/103 94
07/20/24 04:59 07/20/24 04:00 07/20/24 04:00 07/20/24 04:00 07/20/24 04:00
I&O
07/18/24 07/19/24 07/20/24
06:59 06:59 06:59
Intake Total 480 / 480 480 / 480
Output Total 500 / 500 800 / 800
Balance -20 / -20 -320 / -320
[2024-07-20] MEDS: PROTONIX 40 MG PO (07:04)
[2024-07-20] MEDS: ZESTRIL 10 MG PO (07:04)
[2024-07-20] MEDS: DITROPAN 5 MG PO ×3 (07:04→21:18)
[2024-07-20] MEDS: SINGULAIR 10 MG PO (07:04)
[2024-07-20] MEDS: CARDIZEM CD 120 MG PO (07:04)
--- NOTE | 2024-07-20 07:40 | W.PN.PUL3 ---
Today's Communication / Plan
-
Continue therapeutic Lovenox and defer AC options to hematology
Telemetry monitoring
PT/OT
Eventual imaging of the chest in the outpatient setting
Home O2 assessment prior to discharge
Repeat echo in 4-[address] chest w/o contrast in 3 months to follow stability of lung nodule (RUL +LLL GGO)
Assessment
-
63-year-old woman with past medical history. Came to the hospital complaining of 4 to 5 days of shortness of breath. Found to have moderate to large clot burden without saddle embolism-admitted for further evaluation. Consulted for opinion
management.
Impression:
Unprovoked submassive acute bilateral pulmonary embolism with RV strain
CT angiogram 07/18/2024:. There is extensive segmental pulmonary emboli throughout the bilateral pulmonary arteries extending into the subsegmental branches. Signs of RV strain
Increased proBNP/negative troponin
Mild tachycardia/not hypotensive
LLE DVT (Dx with peripheral US on 07/18/2024)
Mild respiratory insufficiency
Incidental lung nodule: 1.7 cm groundglass opacity within the right upper lobe. There is a possible left upper lobe groundglass opacity although this may be related to motion artifact.
Mild compression deformity of the T12 vertebral body, similar to prior MRI. Prior posterior/lateral left sixth through 10th rib fractures.
Conditions present prior admission:
Spinal stenosis
Status post surgery November 2023-lumbar
Obesity
Hypertension
History of asthma
Hypothyroidism
Reports being up-to-date with cancer screening-colonoscopy was due this year.
Assessment and plan:
Given that the patient was and remains hemodynamically stable on minimal supplemental oxygen, with troponin WNL at 0.023, I agree with systemic parenteral AC
Currently on therapeutic LMWH
She apparently does not have coverage for NOAC --> would recommend starting coumadin tonight; hematology consulted --> defer AC to them
-
Overall symptomatically improved, although still remains SOB even at rest
PT/OT consult --> rec'd home health
Tachycardia improved --> continue to monitor
Hemodynamically stable --> maintain MAP>65
On low rate supplemental oxygen --> check home O2 assessment prior to discharge
Continue monitoring manager
-
Lower extremity Dopplers positive for DVT-left lower extremity
Event seems to be unprovoked. Patient is very sedentary at home and has been gaining weight. In addition, she is on hormonal replacement. Will need to be addressed in the outpatient setting; rec'd heme/onc consultation
Transthoracic echo performed today showing dilated RV with reduced systolic function and moderate pulmonary hypertension with estimated PASP: 59 mmHg assuming an RAP of 3 mmHg. Repeat TTE in 4 to 6 weeks to assess for improvement
Continue therapeutic LMWH for now and defer AC to hematology
-
If there is decompensation then we can consider either intra-arterial thrombolysis versus embolectomy. Hold off for now, clinically improving.
Dr. Jones discussed with the patient in detail pros and cons of more aggressive care. For now she would prefer to continue with current care which I agree. 07/18/2024
Continue telemetry monitoring
-
Eventual repeat colonoscopy s due this year.
She reports being up-to-date with other cancer screening for her age.
-
Incidental lung nodule small, right upper lobe, possibly atelectatic: Will need to repeat CT Chest in 3 months.
Patient is a never smoker
Low risk for lung cancer
-
History of asthma: Not currently bronchospastic.
Continue montelukast
prn albuterol
-
Extensive discussion with patient and family members at the bedside by Dr. Jones 07/18/2024 and 07/19/2020.
Will continue to follow
TTE 07/20/2024:
Normal LV size and function with no obvious regional wall motion abnormalities.
LVEF is 55-60% by visual estimation.
Mild concentric LVH.
Dilated RV with reduced systolic function.
Mild tricuspid regurgitation.
Estimated pulmonary artery pressure of 59 mmHg, assuming a right atrial
pressure of 3 mmHg.
Compared to prior from February 23, 2013, estimated PASP is now moderate to severely
elevated at 59 mmHg, previously normal.
Total time spent today was 38 minutes for this encounter. Time includes reviewing laboratory test/imaging results, reviewing pertinent medical records, obtaining and reviewing medical history, performing an appropriate exam, ordering medications,
tests and procedures. Time also includes documentation of this encounter, coordinating patient care and communicating with other healthcare professionals. Total time does not include separately billed tests performed on this date of service.
Subjective Data
-
Date of Service:
Date of Service: July 20, 2024
Chief Complaint: Pulmonary Follow Up (Acute pulmonary embolism) and Vent Management Follow Up
Subjective:
Patient seen and evaluated today at bedside. Still short of breath even at rest. Currently on 2 L/min nasal cannula saturating 94%, heart rate 101 and BP 134/76. No acute events reported overnight. She denies chest pain, MELENDREZ, abdominal pain,
nausea, fevers or chills.
Review of Systems
General: Other (Negative unless mentioned above)
Objective Data
Data Reviewed
Vital Signs / I&O / Oxygen:
Vital Signs
Temp Pulse Resp BP Pulse Ox
97.7 F 95 22 148/108 93
07/20/24 04:59 07/20/24 07:03 07/20/24 07:03 07/20/24 07:03 07/20/24 07:03
Intake and Output
07/19/24 07/20/24 07/21/24
06:59 06:59 06:59
Intake Total 480 / 480 480 / 480
Output Total 500 / 500 800 / 800
Balance -20 / -20 -320 / -320
SaO2 93
Nasal Cannula flow liters per 2
minute
Physical Exam
General: Respiratory Distress (negative), Comfortable, Chills (negative) and Sweats (negative)
HEENT: Normocephalic and Anicteric
Cardiovascular: S1-S2, Peripheral Edema (negative) and Other (Tachycardic)
Respiratory: Wheeze (negative), Crackles (Left posterior base), Rhonchi (negative) and Non-Labored Respirations
GI: Soft, Non Distended, Non Tender and Normal Bowel Sounds
Neurology: AO x 3 and Tremors (negative)
Skin: Warm, Dry, Cyanosis (negative) and Jaundice (negative)
Labs/Micro/Reports
Lab Data
07/20/24 04:30
07/19/24 10:32
Laboratory Results
07/19/24
10:32
APTT 61.6 H
Microbiology
07/18/24 01:47 Nasal Swab Influenza Types A & B (BEKA) - Final
Negative for Influenza A & B, NAAT
Negative results must be combined with clinical observations
and patient history.
Nucleic Acid Amplification test (NAAT)performed on the
[employer] platform.
[2024-07-20] MEDS: ADVAIR HFA 115/21 MCG INHALER 2 PUFF INH ×2 (08:00→19:54)
[2024-07-20] MEDS: ROBITUSSIN 200 MG PO (08:36)
--- NOTE | 2024-07-20 09:36 | PTCARENOTE ---
Assumed care of patient this morning. She c/o of being short of breath and having frequent coughing. Pt medicated with PRN Robitussin, see MAR. at the bedside and made aware of shortness of breath. Lungs are clear, no wheezing. Pt
remains on 2L NC, 93-96%.
Patient asking to shower. advised patient needs to get OOB and walk around without being severely short of breath to shower. Also recommended to work with PT prior to showering. But if both go well, he agreed to let patient shower.
Assessment, care and VS as charted.
[2024-07-20] MEDS: LOVENOX 95 MG SC ×2 (11:50→23:02)
--- NOTE | 2024-07-20 13:09 | CON.ONC ---
Impression
Impression
PE/DVT provoked by medroxyprogesterone
Plan
Plan
Therapeutic enoxaparin vs enoxaparin with bridge to warfarin vs DOAC discussed. There is an increased bleeding risk with warfarin compared to DOAC. Pt decision on preference is based on cost. If opts for warfarin then would need to consider cost
of transportation for INR and cost of weekly labs for monitoring. Alternative options would be continuing on therapeutic enoxaparin BID. I would not opt for daily dosing with weight 93kg. Can case management estimate cost of enoxaparin, Xarelto,
and weekly INR. If pt opts for warfarin then she should have PCP manage INR. Discussed recommendation for cessation of hormone therapy. Ensure adequate hydration, avoidance of smoking, use of compression stocking and frequent ambulation during
long car rides and air travel. Recommend continued routine malignancy screening with PCP. Check DDimer to utilize dash score when weighing risk/benefit of continue therapeutic vs ppx vs cessation of anticoagulation in 3-6 months
Further recommendations upon review by Dr. Reynoso
Patient History
History of Present Illness
63yo F presented to 07/18/2024 with SOB/ASTORGA. She reports symptoms have been progressive 4-5 days prior to admission. CTA shows bilateral pulmonary emboli with multiple segmental and subsegmental clots, there is suspicion of RV strain on the CT
scan. CT also noted an incidental RUL 1.7cm ground glass opacity, possible MELYSSA ground glass opacity, mild compression deformity of the T12 vertebral body, similar to prior MRI, and prior posterior/lateral left sixth through 10th rib fractures.
Bilateral LE US showed an occlusive deep venous thrombosis in the left posterior tibial, peroneal, popliteal, superficial femoral and common femoral veins with nonocclusive thrombus at the left saphenofemoral junction. CBC without cytopenias, CMP
with normal LFTs, calcium, and renal function. She is on therapeutic enoxaparin for VTE.
She is on medroxyprogesterone but otherwise denies provoking factors. She denies family history of thrombosis or personal history of thrombosis. She is up-to-date on routine malignancy screening. She is due for her 10 year colonoscopy this month.
Afebrile, no hypotension, 2L NC
Past-Medical/Surgical History
PMH Asthma, HTN and Hypothyroidism
PSH Lumbar laminectomy, thyroid biopsy
Social: never smoker, denies ETOH or recreational drugs. 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
Family: denies thrombosis
Patient Medication
�Medication �Instructions �Recorded �Confirmed �Last Taken �Type
albuterol 90 mcg/actuation aerosol 90 mcg inhalation Q6 PRN wheezing 07/18/24 07/18/24 Unknown History
inhaler
conj estrogen-medroxyprogesterone 1 tab PO DAILY 07/18/24 07/18/24 Unknown History
0.625 mg-2.5 mg tablet (Prempro)
diltiazem HCl 120 mg 120 mg PO DAILY 07/18/24 07/18/24 Unknown History
capsule,extended release 24 hr
(Cartia XT)
estradiol 0.01% (0.1 mg/gram) 1 g vaginal WEEKLY 07/18/24 07/18/24 Unknown History
vaginal cream
fluticasone 250 mcg-salmeterol 50 1 inh inhalation Q12H 07/18/24 07/18/24 Unknown History
mcg/dose blistr powdr for
inhalation (Advair Diskus)
levothyroxine 175 mcg tablet 175 mcg PO DAILY 07/18/24 07/18/24 Unknown History
lisinopril 10 mg tablet 10 mg PO DAILY 07/18/24 07/18/24 Unknown History
montelukast 10 mg tablet 10 mg PO DAILY 07/18/24 07/18/24 Unknown History
(Singulair)
oxybutynin chloride 15 mg 15 mg PO DAILY 07/18/24 07/18/24 Unknown History
tablet,extended release 24 hr
tramadol 50 mg tablet 50 mg PO Q8H PRN pain 07/18/24 07/18/24 Unknown History
Active Medications
Generic Name Dose Route Start Last Admin
Trade Name Freq PRN Reason Stop Dose Admin
Acetaminophen 650 mg 07/18/24 05:51
Acetaminophen 325 Mg Tablet PO 08/15/24 05:50
Q4HPRN PRN
mild pain/temp > 100.4 F
Albuterol Sulfate 2.5 mg 07/18/24 05:51
Albuterol Nebs 2.5 Mg/3 Ml Ampul INH
R Q4HPRN PRN
wheezing or sob
Protocol
Benzonatate 200 mg 07/18/24 11:41 07/19/24 05:36
Benzonatate 100 Mg Capsule PO 08/15/24 11:40 200 mg
TIDPRN PRN Administration
cough
Diltiazem HCl 120 mg 07/18/24 08:00 07/20/24 07:04
Diltiazem 120 Mg Extended Release (24 H) Capsule PO 08/15/24 07:59 120 mg
DAILY GIFTY Administration
Enoxaparin Sodium 95 mg 07/19/24 12:00 07/20/24 11:50
Enoxaparin Sodium 100 Mg/Ml Syringe SC 08/16/24 11:59 95 mg
Q12H GIFTY Administration
Guaifenesin 200 mg 07/18/24 11:41 07/20/24 08:36
Guaifenesin Oral Solution (200 Mg/10 Ml) Cup PO 08/15/24 11:40 200 mg
Q4HPRN PRN Administration
cough
Levothyroxine Sodium 175 mcg 07/18/24 06:00 07/20/24 05:15
Levothyroxine 175 Mcg Tablet PO 08/15/24 05:59 175 mcg
DAILY @ 0600 GIFTY Administration
Lisinopril 10 mg 07/18/24 08:00 07/20/24 07:04
Lisinopril 10 Mg Tablet PO 08/15/24 07:59 10 mg
DAILY GIFTY Administration
Melatonin 5 mg 07/18/24 22:00 07/19/24 20:56
Melatonin 5 Mg Tablet PO 08/15/24 21:59 5 mg
HS GIFTY Administration
Montelukast Sodium 10 mg 07/18/24 08:00 07/20/24 07:04
Montelukast Sodium 10 Mg Tablet PO 08/15/24 07:59 10 mg
DAILY GIFTY Administration
Oxybutynin Chloride 5 mg 07/18/24 08:00 07/20/24 07:04
Oxybutynin 5 Mg Tablet PO 08/15/24 07:59 5 mg
TID GIFTY Administration
Pantoprazole Sodium 40 mg 07/18/24 08:00 07/20/24 07:04
Pantoprazole 40 Mg Delayed Release Tablet PO 08/15/24 07:59 40 mg
DAILY GIFTY Administration
Fluticasone/Salmeterol 2 puff 07/18/24 08:00 07/20/24 08:00
Advair Hfa 115/21 Inhaler INH 08/15/24 07:59 2 puff
R Q12 GIFTY Administration
Sodium Chloride 0 flush 07/18/24 04:00
Sodium Chloride 0.9% (Flush) Syringe IV 08/15/24 03:59
PER PROTOCOL GIFTY
Review of Systems
-
ROS notable for HPI, otherwise negative
Physical Exam
-
General: No Apparent Distress and Obese
HEENT: Moist Mucous Membranes; Negative Jaundice
Cardiology: S1 and S2
Pulmonary: Clear
GI: Soft
Extremities: Pulses Present
Neurology: Non Focal
Skin: Warm
Psych: Calm
Labs
Lab Results
WBC 7.1 10^3/uL (4.8-10.8) 07/20/24 04:30
RBC 3.70 10^6/uL (4.20-5.40) L 07/20/24 04:30
Hgb 12.2 g/dL (12.0-16.0) 07/20/24 04:30
Hct 36.0 % (37.0-47.0) L 07/20/24 04:30
MCV 97.3 fL (81.0-99.0) 07/20/24 04:30
MCH 33.0 pg (27.0-31.0) H 07/20/24 04:30
MCHC 33.9 g/dL (33.0-37.0) 07/20/24 04:30
RDW 13.5 % (11.5-14.5) 07/20/24 04:30
Plt Count 169 10^3/uL (130-400) 07/20/24 04:30
MPV 10.3 fL (7.4-10.4) 07/20/24 04:30
Abs Immat Gran (auto) 0.0 10^3/uL (0-0.05) 07/18/24 01:47
Absolute Neuts (auto) 6.8 10^3/uL (1.4-6.5) H 07/18/24 01:47
Absolute Lymphs (auto) 3.0 10^3/uL (1.2-3.4) 07/18/24 01:47
Absolute Monos (auto) 0.8 10^3/uL (0.1-0.6) H 07/18/24 01:47
Absolute Eos (auto) 0.4 10^3/uL (0-0.7) 07/18/24 01:47
Absolute Basos (auto) 0.1 10^3/uL (0-0.2) 07/18/24 01:47
Immature Gran % 0.2 % (0-0.5) 07/18/24 01:47
Neutrophils % 60.9 % (42.2-75.2) 07/18/24 01:47
Lymphocytes % 27.3 % (20.5-51.1) 07/18/24 01:47
Monocytes % 6.8 % (1.7-9.3) 07/18/24 01:47
Eosinophils % 3.7 % (0-6) 07/18/24 01:47
Basophils % 1.1 % (0-2) 07/18/24 01:47
Creatinine 0.7 mg/dL (0.6-1.0) 07/19/24 10:32
Vital Signs
Vital Signs
Temp Pulse Resp BP Pulse Ox
98.2 F 100 26 128/85 96
07/20/24 11:05 07/20/24 12:01 07/20/24 12:01 07/20/24 12:01 07/20/24 12:01
[2024-07-20 13:19] LABS: INR 1.11; PT 14.2 Sec (11.4-14.6)
[2024-07-20 13:26] LABS: Blood Urea Nitrogen 19 mg/dl (7-17); Calcium 9.4 mg/dl (8.4-10.2); Carbon Dioxide 22 mmol/L (22-30); Chloride 106 mmol/L (98-107); Estimated Creatinine Clearance 72 ml/min; Glucose 124 mg/dl (70-99); Magnesium 1.7 mg/dl (1.6-2.3); Phosphorus 4.1 mg/dl (2.5-4.5); Potassium 4.3 mmol/L (3.5-5.1); Sodium 139 mmol/L (135-145); eGFR > 60.00
[2024-07-20 15:52] LABS: D-Dimer 1.21 ug/mlFEU (0.00-0.50)
--- NOTE | 2024-07-20 16:55 | CM ---
Patient with Dx Unprovoked bilateral PE. O2 weaned off to RA today. Receiving Lovenox SQ. PT/OT recommend HH.
Spoke with patient who reports she was told Lovenox SQ would be stopped before d/c, and she would be switched to Eliquis. She was given samples of Eliquis by someone here (uncertain who).
Discussed PT/OT recommendations and patient agrees to [facility] again for home PT/OT.
[facility]
Plan provide Eliquis Free Month card if discharged on Eliquis.
[facility]
--- NOTE | 2024-07-20 19:37 | PTCARENOTE ---
Patient heart rate into the 140s with ambulating into bathroom for bowel movement. Pt denied chest discomfort but felt her heart racing. Pt returned to chair and heart slowed to 110s. Pt appeared dyspneic with this event but did not desat
[2024-07-20] MEDS: MELATONIN 5 MG PO (21:18)
[2024-07-21] VITALS (8 sets, daily range): BP systolic 117–162; BP diastolic 85–113
[2024-07-21] MEDS: TYLENOL 650 MG PO (04:55)
[2024-07-21] MEDS: SYNTHROID 175 MCG PO (04:55)
[2024-07-21 05:14] LABS: Hemoglobin 13.1 g/dL (12.0-16.0); Mean Corp Hgb Conc. 34.5 g/dL (33.0-37.0); Mean Corpuscular Hgb 34.2 pg (27.0-31.0); Mean Corpuscular Volume 99.2 fL (81.0-99.0); Mean Platelet Volume 9.8 fL (7.4-10.4); Platelet Count 169 10^3/uL (130-400); Red Blood Cell Count 3.83 10^6/uL (4.20-5.40); Red Cell Dist. Width 13.1 % (11.5-14.5); White Blood Cell Count 6.3 10^3/uL (4.8-10.8)
[2024-07-21 06:00] LABS: Blood Urea Nitrogen 19 mg/dl (7-17); Carbon Dioxide 18 mmol/L (22-30); Chloride 110 mmol/L (98-107); Estimated Creatinine Clearance 92 ml/min; Glucose 105 mg/dl (70-99); Magnesium 1.7 mg/dl (1.6-2.3); Phosphorus 4.3 mg/dl (2.5-4.5); Potassium 4.1 mmol/L (3.5-5.1); Sodium 140 mmol/L (135-145); eGFR > 60.00
--- NOTE | 2024-07-21 06:03 | PTCARENOTE ---
No acute changes overnight. 2L NC in place. Tylenol provided for lower back pain. Ambulates with FWW to BR, +ASTORGA but improving. NSR/ST on tele monitor. HR up to 100-120s while OOB to the BR. Sp02 90-92% when OOB on 2L. Tolerating SQ Lovenox. Call
christensen and tray table within reach. Calls appropriately for assistance.
--- NOTE | 2024-07-21 07:39 | W.PN.HOSP.TC ---
Addendum entered and electronically signed by Bethany Mckee MD 07/22/24 18:37:
Pulmonary embolism with acute cor pulmonale
-symptomatically improved following treatment with anticoagulation
-outpatient repeat ECHO recommended as below
Addendum entered and electronically signed by Bethany Mckee MD 07/21/24 15:52:
Acute Pulmonary Embolism and Left Lower Extremity Deep Vein Thrombosis
Original Note:
Today's Communication/Plan
-
discharge
Assessment / Plan
Assessment / Plan
Physical Exam
General no acute distress sitting up comfortably in bed
CVS: S1-S2 normal
Chest: CTA B/L
Abdomen: Soft, NT / Bowel sounds present
Extremities: No edema or tenderness
PRIMARY CARE COORDINATOR: AOx3
62-year-old female with shortness of breath no recent surgeries or travel. No personal history of Blood clots or family history of blood clots. No history of malignancy. No weight loss.
CT lyxwk-rptbqlifdzp-rkhb to moderate motion artifact. Bilateral pulmonary emboli with multiple segmental and subsegmental branches right worse than left. Mild cardiomegaly. Suspected right heart strain and dilated main pulmonary artery. 1.4 cm
ground glass nodule in the right upper lobe and 1.1 cm ground glass nodule in the left lower lobe
Ultrasound-occlusive DVT in the left posterior tibial, peroneal, popliteal, superficial femoral and common femoral veins and nonocclusive thrombus in the left saphenofemoral junction
# possible Unprovoked vs provoked bilateral PE, DVT
On hormonal supplements, endorses reduced ambulation since her spinal stenosis surgery Nov 2024 (ambulates with cane at baseline since surgery)
Started on heparin drip transitioned to weight based Lovenox the Eliquis on discharge
ECHO appreciated EF 55-60% increased Pulm Artery Pressure when compared to prior ECHO 2012
Pulmonary consult appreciated Repeat ECHO 4-6 wks
weaned off oxygen supplementation, home oxygen assessment appreciated no need
Hematology Eval appreciated
-more likely provoked DVT/PE
-cessation of hormone supplements recommended
patient's prescription plan doesn't start until Oct 2024
per discussion w/ hematology and case mgmt patient to start with 1 month free Eliquis card and Hematology to provide samples pending start of insurance
Patient in agreement with plan, Lovenox subsequently switched to Eliquis
#Right upper lobe Lung nodule
Pulm eval appreciated repeat CT chest w/o contrast in 3 months recommended
# Tzgejy-SAQ-Znilhptt Singulair, Advair or equivalent, albuterol inhaler/nebulizer as needed
# Hypothyroidism-continue Synthroid
# Hypertension-continue lisinopril and diltiazem
# Multilevel Degenerative disc disease Lumbar spinal stenosis surgery performed Nov 2024
# H/O ESBL E Coli
# Obesity per BMI
# Full code
PT/OT eval appreciated Home Services
Medically stable for discharge home with home services and outpatient follow up recommendations
Discussed with patient, Hematology, pulmonology, case management, and nurse
Total Time Preparing Discharge ___40____ minutes including examination of the patient, summary of the hospital stay, instructions for continuing care to all relevant caregivers; and preparation of discharge records, prescriptions, and referral
forms if necessary.
Anticipated Discharge: Today
Subjective/Interval History
-
Date of Service: July 21, 2024
Weaned off oxygen supplementation. Overall symptomatically improved. Denies new acute issues. Eager to go home
Objective Data
-
Labs:
Laboratory Results
07/21/24
05:04
WBC 6.3
Hgb 13.1
Hct 38.0
Plt Count 169
PT 14.0
INR 1.10
Sodium 140
Potassium 4.1
Chloride 110 H
Carbon Dioxide 18 L
BUN 19 H
Creatinine 0.7
Glucose 105 H
Calcium 9.0
Vital Signs:
Vital Signs
Temp Pulse Resp BP Pulse Ox
98.3 F 98 26 132/106 96
07/21/24 03:30 07/21/24 06:00 07/21/24 06:00 07/21/24 06:00 07/21/24 06:00
I&O
07/20/24 07/21/24 07/22/24
06:59 06:59 06:59
Intake Total 480 / 480 880 / 880
Output Total 800 / 800 1250 / 1250
Balance -320 / -320 -370 / -370
[2024-07-21] MEDS: ADVAIR HFA 115/21 MCG INHALER 2 PUFF INH (08:05)
[2024-07-21] MEDS: CARDIZEM CD 120 MG PO (09:00)
[2024-07-21] MEDS: SINGULAIR 10 MG PO (09:00)
[2024-07-21] MEDS: PROTONIX 40 MG PO (09:00)
[2024-07-21] MEDS: ZESTRIL 10 MG PO (09:00)
[2024-07-21] MEDS: DITROPAN 5 MG PO ×2 (09:00→15:29)
--- NOTE | 2024-07-21 09:37 | W.PN.PUL3 ---
Today's Communication / Plan
-
Continue systemic AC as per heme and CM --> now on Eliquis with loading dose
Telemetry monitoring
PT/OT
Home O2 assessment prior to discharge shows she does not need home O2
Repeat echo in 4-6 weeks to re-eval RV dysfunction + dilated RV
Repeat CT chest w/o contrast in 3 months to follow stability of lung nodule (RUL +LLL GGO)
Patient is now started on NOAC and is being prepared for discharge home today. No O2 needed as per home O2 assessment testing today. Pulmonary service will now sign off. Please reconsult if there are any additional questions/concerns, or if
patient's respiratory status deteriorates.
Assessment
-
63-year-old woman with past medical history. Came to the hospital complaining of 4 to 5 days of shortness of breath. Found to have moderate to large clot burden without saddle embolism-admitted for further evaluation. Consulted for opinion
management.
Impression:
Unprovoked submassive acute bilateral pulmonary embolism with RV strain
CT angiogram 07/18/2024:. There is extensive segmental pulmonary emboli throughout the bilateral pulmonary arteries extending into the subsegmental branches. Signs of RV strain
Increased proBNP/negative troponin
Mild tachycardia/not hypotensive
LLE DVT (Dx with peripheral US on 07/18/2024)
Mild respiratory insufficiency
Incidental lung nodule: 1.7 cm groundglass opacity within the right upper lobe. There is a possible left upper lobe groundglass opacity although this may be related to motion artifact.
Mild compression deformity of the T12 vertebral body, similar to prior MRI. Prior posterior/lateral left sixth through 10th rib fractures.
Conditions present prior admission:
Spinal stenosis
Status post surgery November 2023-lumbar
Obesity
Hypertension
History of asthma
Hypothyroidism
Reports being up-to-date with cancer screening-colonoscopy was due this year.
Assessment and plan:
Given that the patient was and remains hemodynamically stable on minimal supplemental oxygen, with troponin WNL at 0.023, I agree with systemic parenteral AC
Switched from therapeutic LMWH to Eliquis this AM
Eliquis found to be affordable per CM --> transition to Eliquis now; hematology consulted --> recs appreciated
-
Overall symptomatically improved with improved SOB today compared to yesterday
PT/OT consult --> rec'd home health
Tachycardia improved --> continue to monitor
Hemodynamically stable --> maintain MAP>65
On low rate supplemental oxygen --> Home O2 assessment checked today with bryant SpO2 91% on room air with patient able to walk 100 feet; no home O2 needed
-
Lower extremity Dopplers positive for DVT-left lower extremity
Event seems to be unprovoked. Patient is very sedentary at home and has been gaining weight. In addition, she is on hormonal replacement. Will need to be addressed in the outpatient setting; rec'd heme/onc consultation
Transthoracic echo performed yesterday showing dilated RV with reduced systolic function and moderate pulmonary hypertension with estimated PASP: 59 mmHg assuming an RAP of 3 mmHg. Repeat TTE in 4 to 6 weeks to assess for improvement
Defer AC to hematology + CM
-
-
Eventual repeat colonoscopy is due this year.
She reports being up-to-date with other cancer screening for her age.
-
Incidental lung nodule small, right upper lobe, possibly atelectatic: Will need to repeat CT Chest in 3 months.
Patient is a never smoker
Low risk for lung cancer
-
History of asthma: Not currently bronchospastic.
Continue montelukast
prn albuterol
-
Extensive discussion with patient and family members at the bedside by Dr. Jones 07/18/2024 and 07/19/2020.
Patient is now started on NOAC and is being prepared for discharge home today. No O2 needed as per home O2 assessment testing today. Pulmonary service will now sign off. Thank you for allowing us to be involved in the care of this patient.
Please reconsult if there are any additional questions/concerns, or if patient's respiratory status deteriorates.
CTA Chest 07/18/2024:
1. There is extensive segmental pulmonary emboli throughout the bilateral pulmonary arteries extending into the subsegmental branches. There are findings of right heart strain with flattening of the interventricular septum, relative increased size
of the right ventricle and dilation of the main pulmonary artery which were not present on prior coronary CTA 2008.
2. 1.7 cm groundglass opacity within the right upper lobe. There is a possible left upper lobe groundglass opacity although this may be related to motion artifact.
3. Mild compression deformity of the T12 vertebral body, similar to prior MRI. Prior posterior/lateral left sixth through 10th rib fractures.
TTE 07/20/2024:
Normal LV size and function with no obvious regional wall motion abnormalities.
LVEF is 55-60% by visual estimation.
Mild concentric LVH.
Dilated RV with reduced systolic function.
Mild tricuspid regurgitation.
Estimated pulmonary artery pressure of 59 mmHg, assuming a right atrial
pressure of 3 mmHg.
Compared to prior from February 23, 2013, estimated PASP is now moderate to severely
elevated at 59 mmHg, previously normal.
Total time spent today was 37 minutes for this encounter. Time includes reviewing laboratory test/imaging results, reviewing pertinent medical records, obtaining and reviewing medical history, performing an appropriate exam, ordering medications,
tests and procedures. Time also includes documentation of this encounter, coordinating patient care and communicating with other healthcare professionals. Total time does not include separately billed tests performed on this date of service.
Subjective Data
-
Date of Service:
Date of Service: July 21, 2024
Chief Complaint: Pulmonary Follow Up (Acute pulmonary embolism) and VTE Follow Up
Subjective:
Patient seen and evaluated today at bedside. She is doing well. Heart rate 105, BP 117/83 and saturating 95% on room air. No acute events reported overnight and she feels much better today with her breathing. Able to ambulate as well without
chest pain or shortness of breath. She denies MELENDREZ, abdominal pain, CP, nausea, fevers or chills.
Review of Systems
General: Other (Negative unless mentioned above)
Objective Data
Data Reviewed
Vital Signs / I&O / Oxygen:
Vital Signs
Temp Pulse Resp BP Pulse Ox
98.0 F 112 16 129/90 96
07/21/24 07:56 07/21/24 09:00 07/21/24 08:09 07/21/24 09:00 07/21/24 09:10
Intake and Output
07/20/24 07/21/24 07/22/24
06:59 06:59 06:59
Intake Total 480 / 480 880 / 880 720 / 720
Output Total 800 / 800 1250 / 1250
Balance -320 / -320 -370 / -370 720 / 720
SaO2 96
Nasal Cannula flow liters per 2
minute
Physical Exam
General: Respiratory Distress (negative), Comfortable, Chills (negative) and Sweats (negative)
HEENT: Normocephalic and Anicteric
Cardiovascular: S1-S2, Peripheral Edema (Trace lower extremity edema bilaterally) and Other (Tachycardic)
Respiratory: Clear, Wheeze (negative), Crackles (negative), Rhonchi (negative) and Non-Labored Respirations
GI: Soft, Non Distended, Non Tender and Normal Bowel Sounds
Neurology: AO x 3 and Tremors (negative)
Skin: Warm, Dry, Cyanosis (negative) and Jaundice (negative)
Labs/Micro/Reports
Lab Data
07/21/24 05:04
07/21/24 05:04
Laboratory Results
07/20/24 07/21/24
12:54 05:04
PT 14.2 14.0
INR 1.11 1.10
--- NOTE | 2024-07-21 09:42 | VNURNOTE ---
Home Health Liaison spoke with patient to discuss [facility] nurse/therapy, visits, schedule and homebound status. Patient is agreeable and understands that visits at home will be 2-3 x per week to assess and teach medical management. Patient resports
she has had [facility] in the past. Patient is aware that [facility] will contact them for start of care in 1-2 days after discharge from .
[facility] referral completed in [facility].
--- NOTE | 2024-07-21 11:04 | PN.CDI ---
CDI
- -
CDI:
Physician Documentation Request
Admit Date: 07/18/24 04:52
Dear Doctor Ryele,
Patient admitted for PE and DVT.
07/20 Hospitalist PN: 'CT chest...Bilateral pulmonary emboli with multiple segmental and subsegmental branches right worse than left...Ultrasound-occlusive DVT in the left posterior tibial, peroneal, popliteal, superficial femoral and common femoral
veins and nonocclusive thrombus in the left saphenofemoral junction'
Clarify which of the following accurately represents the acuity of the PE and DVT. Possible options might include:
____ Acute
____ Chronic
____ Other
Use of terms such as suspected, likely, concern for, or probable (associated with a specific diagnosis that is being evaluated, monitored, or treated as if it exists) are acceptable and can be coded in the inpatient setting, when documented at the
time of discharge.
Thank you,
Cally Sena RN, BSN
CDI Specialist
Available via [place] text
Please use your independent medical judgment in providing your response.
[2024-07-21] MEDS: ELIQUIS 10 MG PO (11:59)
--- NOTE | 2024-07-21 16:18 | W.DCSUMMARY ---
Discharge Summary
Discharge Data
Date of Admission: 07/18/24
Date of Discharge: 07/21/24
-
Pending Results: No
Hospital Course
63F HTN, HLD, Asthma p/w worsening shortness of breath and dyspnea for the last 4 to 5 days. Patient reported that when she developed worsening shortness of breath, she started using her inhaler and noticed that it was not helping. Usually her
inhalers are very effective. Denied chest pain. Reported some discomfort that she associated with breathing effort. Denied any lower extremity swelling or calf tenderness. Patient denied any recent immobilization, airplane flights, or prolonged
driving. Reported recent back surgery in Nov 2023 for lumbar stenosis, requires can at baseline for ambulation. Reported more sedentary lifestyle since her surgery. Denied any recent cold or flulike infection. She had no recent COVID-19
infection. Denied any prior history of venous thromboembolism and denies family history of such. In the emergency department, she was hypoxic requiring 4L to maintain a sat of 95%. Blood pressure was stable at 130/90 and she was tachycardic to
the 120s. ECG showed sinus tachycardia at a rate of 113 without any acute changes. Initial troponin was 0.02. BNP was elevated at 5000. CBC and chemistries were unremarkable. CT chest-preliminary noted Bilateral pulmonary emboli with multiple
segmental and subsegmental branches right worse than left. Mild cardiomegaly. Suspected right heart strain and dilated main pulmonary artery. 1.4 cm ground glass nodule in the right upper lobe and 1.1 cm ground glass nodule in the left lower lobe
were noted. Ultrasound was positive for occlusive DVT in the left posterior tibial, peroneal, popliteal, superficial femoral and common femoral veins and nonocclusive thrombus in the left saphenofemoral junction. Possible Unprovoked vs provoked
bilateral PE and DVT, on hormonal supplements, endorsed reduced ambulation since her spinal stenosis surgery Nov 2024 (ambulates with cane at baseline since surgery). She was started on heparin drip and eventually transitioned to weight based
Lovenox before switch to Eliquis on discharge. ECHO appreciated EF 55-60% increased Pulm Artery Pressure when compared to prior ECHO 2012. Pulmonary consult evaluated and recommended repeat ECHO 4-6 wks. Weaned off oxygen supplementation, home
oxygen assessment appreciated no need. Hematology evaluated and recommended cessation of home oral hormone supplements. Patient's prescription plan doesn't start until Oct 2024. Per discussion w/ hematology and case mgmt patient was started with
1 month free Eliquis card and Hematology to provide samples pending start of insurance. Patient in agreement with plan, Lovenox subsequently switched to Eliquis. Regarding right upper lobe Lung nodule, Pulm recommended repeat CT chest w/o contrast
in 3 months. Medically stable, patient was discharged home with home services and outpatient follow up recommendations.
Discharge Plan
-
Patient Disposition: Home with Home Care
Discharge Diagnosis/Procedures: Possible Provoked bilateral Pulmonary Embolism and left lower extremity deep vein thrombosis- due to hormone supplements and relatively sedentary lifestyle
Right Upper Lobe Lung nodule 1.7 cm
Asthma
Hypothyroidism
Hypertension-continue lisinopril and diltiazem
Multilevel Degenerative disc disease Lumbar spinal stenosis
Obesity
Condition: Fair
Diet: Low Cholesterol and 2 Gram Sodium
Activity: As tolerated
Driving Restrictions: As prior to admission
Bathing Restrictions: None
Blood Work: Repeat CBC and BMP with primary care provider in 1 week of discharge
Others Tests: Repeat ECHO with primary care provider or Pulmonology in 4-6 weeks of discharge.
Repeat CT Chest without contrast with primary care provider or Pulmonology in 3 months of discharge.
Other Services: PT and OT
Activity Restrictions/Additional Instructions:
Please follow up with primary care provider in 1 week of discharge and, in 2-4 weeks of discharge, follow up with Pulmonology and Hematology.
For PE/DVT, you've been prescribed Eliquis 10 mg twice a day for 7 days (07/21/24-07/27/24) then reduce to 5 mg twice a day from then on.
As needed cough medication has also been prescribed. This is available over the counter.
It is recommended that you hold your home oral hormone supplement at this time as there is a concern for relation to recent PE/DVT. Please follow up with your primary care provider, hematology, and/or other healthcare provider involved in your care
before considering to resume.
Please take medications as prescribed/recommended and follow up with primary care provider, Hematology, Pulmonology and/or other healthcare provider involved in your care for refills and/or further adjustment to your medication regimen as necessary.
Instructions: Deep vein thrombosis - Discharge instructions, Pulmonary embolism - Discharge instructions
Referrals:
Mary Moe CRNP [Family Provider] - in one week
Michelle Reynoso MD [Active] - in two to four weeks
Trae Amaral MD [Active] - in two to four weeks
Prescriptions:
New
guaifenesin 100 mg/5 mL Liquid
200 mg PO Q4HPRN PRN (Reason: cough) Qty: 500 0RF
Eliquis DVT-PE Treat 30D Start 5 mg (74 tabs) tablets,dose pack
See Rx Instructions .ROUTE .COMPLEX Qty: 74 0RF
Rx Instructions:
10 mg twice a day for 7 days (07/27/24 last day for this dosage) then reduce to 5 mg twice a day from then on.
Continued
levothyroxine 175 mcg Tablet
175 mcg PO DAILY
fluticasone propion-salmeterol [Advair Diskus] 250-50 mcg/dose Blister With Device
1 inh INHALATION Q12H
oxybutynin chloride 15 mg Tablet Extended Release 24hr
15 mg PO DAILY
tramadol 50 mg Tablet
50 mg PO Q8H PRN (Reason: pain)
lisinopril 10 mg Tablet
10 mg PO DAILY
diltiazem HCl [Cartia XT] 120 mg Capsule,Extended Release 24hr
120 mg PO DAILY
montelukast [Singulair] 10 mg Tablet
10 mg PO DAILY
albuterol 90 mcg/actuation Aerosol
90 mcg INHALATION Q6 PRN (Reason: wheezing)
estradiol 0.01 % (0.1 mg/gram) Cream
1 g VAGINAL WEEKLY
Rx Instructions:
2x/week
Held
Prempro 0.625-2.5 mg Tablet
1 tab PO DAILY
Hold Instructions: On hold due to concern related to recent acute PE/DVT. Please follow up with primary care provider, Hematology, or other healthcare provider involved in your care before considering to resume.
Discharge Orders:
Discharge Patient (As Directed); Ordered 07/21/24
Ordered By: Bethany Mckee
Discharge Date and Time
Discharge Date/Time: 07/21/24 17:21
Print Language: BRAZILIAN
--- NOTE | 2024-07-21 16:27 | CM ---
Patient with Dx Acute Pulmonary Embolism and Left Lower Extremity Deep Vein Thrombosis. Lovenox switched to Eliquis. Home O2 assessment today- home O2 not needed.
Met with patient who was preparing for discharge.
The patient says she feels ready for discharge home today. IMM completed.
Patient has Eliquis samples at bedside that she was previously provided.
provided Eliquis Free Month card.
She is aware [facility] is setup for her.
Her will provide transport home today.
Plan home today with [facility].
[2024-07-21] MEDS: FLUAD (65 yr+) 2024-2025 FORMULA 0.5 ML IM (16:56)
[2024-07-21] MEDS: ROBITUSSIN 200 MG PO (17:14)
--- NOTE | 2024-07-22 15:29 | PN.CDI ---
CDI
- -
CDI:
Physician Documentation Request
Admit Date: 07/18/24 04:52
Dear Doctor Rylee,
Patient admitted for pulmonary embolism.
07/[address]: 'There are findings of right heart strain with flattening of the interventricular septum, relative increased size of the right ventricle and dilation of the main pulmonary artery which were not present on prior coronary CTA 2008.'
07/20 Echo Report: 'Dilated RV with reduced systolic function.'
Based on the above, could you clarify in the progress notes, the appropriate diagnosis, if significant, that supports the above abnormalities and additional evaluation, monitoring and/or treatment rendered:
Pulmonary embolism with acute cor pulmonale
Pulmonary embolism without acute cor pulmonale
Other
Use of terms such as suspected, likely, concern for, or probable (associated with a specific diagnosis that is being evaluated, monitored, or treated as if it exists) are acceptable and can be coded in the inpatient setting, when documented at the
time of discharge.
Thank you,
Cally Sena RN, BSN
CDI Specialist
Available via [place] text
Please use your independent medical judgment in providing your response.
== END 2024-07-21 17:21 | disposition home health service (06) | DRG 175 ==
LOC: IMU 04:52
PROVIDERS: Hospitalist; ADMITTING PHYSICIAN Internal Medicine; ATTENDING PHYSICIAN Internal Medicine; CONSULT PHYSICIAN Internal Medicine Critical Care Medicine; EMERGENCY PHYSICIAN Emergency Medicine; FAMILY PHYSICIAN Nurse Practitioner Family
PROC: 3E02340 Introduction of Influenza Vaccine into Muscle, Percutaneous Approach (ICD-10-PCS; 2024-07-18)
DX: I26.09 Other pulmonary embolism with acute cor pulmonale (principal); I82.442 Acute embolism and thrombosis of left tibial vein; E87.20 Acidosis, unspecified; I82.452 Acute embolism and thrombosis of left peroneal vein; I82.432 Acute embolism and thrombosis of left popliteal vein; I82.412 Acute embolism and thrombosis of left femoral vein; J45.909 Unspecified asthma, uncomplicated; I10 Essential (primary) hypertension; E03.9 Hypothyroidism, unspecified; E66.9 Obesity, unspecified; M48.061 Spinal stenosis, lumbar region without neurogenic claudication; M51.369 Other intervertebral disc degeneration, lumbar region without mention of lumbar back pain or lower extremity pain; G89.29 Other chronic pain; M54.9 Dorsalgia, unspecified; E78.5 Hyperlipidemia, unspecified; R09.02 Hypoxemia; R06.09 Other forms of dyspnea; R91.1 Solitary pulmonary nodule; Z79.51 Long term (current) use of inhaled steroids; Z79.890 Hormone replacement therapy; Z79.899 Other long term (current) drug therapy; Z87.81 Personal history of (healed) traumatic fracture; Z23 Encounter for immunization
CPT/HCPCS: 71046; 71275; 80048; 80053; 82805; 83735; 83880; 84100; 84484; 85025; 85027; 85379; 85610; 85730; 87502; 87811; 90662; 93005; 93306; 93970; 94640; 96365; 96375; 97162; 97166; 97535; 99285; G0008; Q9967

== ENCOUNTER → 2024-08-21 16:23 | Outpatient (REF) | payer MEDICARE, OTHER, SELFPAY | LOC: RAD 16:23 | PROVIDERS: ATTENDING PHYSICIAN Nurse Practitioner Family; FAMILY PHYSICIAN Nurse Practitioner Family | DX: Z86.711 Personal history of pulmonary embolism (principal); R91.1 Solitary pulmonary nodule | CPT/HCPCS: 71275; Q9967 ==

== ENCOUNTER → 2024-08-29 07:45 | Outpatient (REF) | payer MEDICARE, OTHER, SELFPAY ==
[2024-08-29 08:38] LABS: % Basophils 1.1 % (0-2); % Eosinophils 5.8 % (0-6); % Immature Granulocytes 0.2 % (0-0.5); % Lymphocytes 35.7 % (20.5-51.1); % Monocytes 6.1 % (1.7-9.3); % Neutrophils 51.1 % (42.2-75.2); Absolute Basophils 0.1 10^3/uL (0-0.2); Absolute Eosinophils 0.4 10^3/uL (0-0.7); Absolute Lymphocytes 2.4 10^3/uL (1.2-3.4); Absolute Monocytes 0.4 10^3/uL (0.1-0.6); Absolute Neutrophils 3.4 10^3/uL (1.4-6.5); Hematocrit 41.8 % (37.0-47.0); Hemoglobin 14.3 g/dL (12.0-16.0); Mean Corp Hgb Conc. 34.2 g/dL (33.0-37.0); Mean Corpuscular Hgb 32.4 pg (27.0-31.0); Mean Corpuscular Volume 94.8 fL (81.0-99.0); Mean Platelet Volume 9.9 fL (7.4-10.4); Nucleated Red Blood Cells % 0 %; Platelet Count 290 10^3/uL (130-400); Red Blood Cell Count 4.41 10^6/uL (4.20-5.40); White Blood Cell Count 6.6 10^3/uL (4.8-10.8)
[2024-08-29 09:17] LABS: ALT (SGPT) 14 U/L (0-35); AST (SGOT) 19 U/L (14-36); Albumin 4.2 g/dl (3.5-5.0); Alkaline Phosphatase 79 U/L (38-126); Blood Urea Nitrogen 17 mg/dl (7-17); Calcium 9.6 mg/dl (8.4-10.2); Carbon Dioxide 20 mmol/L (22-30); Chloride 106 mmol/L (98-107); Glucose 104 mg/dl (70-99); HDL Cholesterol 54 mg/dl; LDL Cholesterol, Calculated 121 mg/dl; Potassium 4.5 mmol/L (3.5-5.1); Sodium 139 mmol/L (135-145); Total Bilirubin 0.6 mg/dl (0.2-1.3); Total Cholesterol 189 mg/dl (50-199); Total Protein 6.6 g/dl (6.3-8.2); Triglyceride 71 mg/dl (10-149); Very Low Density Lipoprotein 14 mg/dl (0-30); eGFR > 60.00
[2024-08-29 11:07] LABS: Glycohemoglobin (HgbA1c) 5.4 % (4.0-5.6)
== END ==
LOC: REG 07:45
PROVIDERS: ATTENDING PHYSICIAN Nurse Practitioner Family
DX: E03.9 Hypothyroidism, unspecified (principal); E78.2 Mixed hyperlipidemia; I26.99 Other pulmonary embolism without acute cor pulmonale; E11.69 Type 2 diabetes mellitus with other specified complication; Z12.11 Encounter for screening for malignant neoplasm of colon
CPT/HCPCS: 36415; 80053; 80061; 83036; 84443; 85025

== ENCOUNTER → 2024-09-16 15:58 | Outpatient (REF) | payer MEDICARE, OTHER, SELFPAY | LOC: RCS 15:58 | PROVIDERS: ATTENDING PHYSICIAN Nurse Practitioner Family; FAMILY PHYSICIAN Nurse Practitioner Family | DX: Z86.711 Personal history of pulmonary embolism (principal) | CPT/HCPCS: 93308; 93321; 93325 ==

== ENCOUNTER → 2024-10-16 08:55 | Outpatient (REF) | payer OTHER, SELFPAY | LOC: DHSLP 08:55 | PROVIDERS: ATTENDING PHYSICIAN Internal Medicine Critical Care Medicine; FAMILY PHYSICIAN Nurse Practitioner Family | DX: G47.33 Obstructive sleep apnea (adult) (pediatric) (principal) | CPT/HCPCS: 95800 ==

== ENCOUNTER → 2024-10-19 09:28 | Outpatient (REF) | payer OTHER, SELFPAY | LOC: RAD 09:28 | PROVIDERS: ATTENDING PHYSICIAN Nurse Practitioner Family; FAMILY PHYSICIAN Nurse Practitioner Family | DX: Z86.718 Personal history of other venous thrombosis and embolism (principal); R06.02 Shortness of breath | CPT/HCPCS: 93971 ==

== ENCOUNTER → 2024-12-15 10:06 | Outpatient (REF) | payer OTHER, SELFPAY | LOC: HWRAD 10:06 | PROVIDERS: ATTENDING PHYSICIAN Internal Medicine Critical Care Medicine; FAMILY PHYSICIAN Nurse Practitioner Family | DX: R91.1 Solitary pulmonary nodule (principal) | CPT/HCPCS: 71250 ==

== ENCOUNTER → 2025-02-05 14:26 | Outpatient (REF) | payer OTHER, SELFPAY ==
[2025-02-05 15:29] LABS: D-Dimer < 0.27 ug/mlFEU (0.00-0.50)
== END ==
LOC: REG 14:26
PROVIDERS: ATTENDING PHYSICIAN Internal Medicine Hematology & Oncology; FAMILY PHYSICIAN Nurse Practitioner Family
DX: I82.419 Acute embolism and thrombosis of unspecified femoral vein (principal); I26.09 Other pulmonary embolism with acute cor pulmonale
CPT/HCPCS: 36415; 81240; 81241; 85300; 85305; 85379; 85610; 85613; 85730; 86146; 86147

== ENCOUNTER → 2025-05-26 10:32 | Outpatient (REF) | payer OTHER, SELFPAY ==
[2025-05-26 11:21] LABS: Urine Character Cloudy (Clear)
[2025-05-26 11:35] LABS: Urine Squamous Cell 0-2 /LPF (Few)
[2025-05-26 11:36] LABS: Urine Red Blood Cell 0-2 /HPF (0-2); Urine White Cell 50-60 /HPF (0-5)
== END ==
LOC: RAD 10:32
PROVIDERS: ATTENDING PHYSICIAN Internal Medicine Critical Care Medicine; FAMILY PHYSICIAN Nurse Practitioner Family; REFERRING PHYSICIAN Physician Assistant Medical
DX: R91.1 Solitary pulmonary nodule (principal)
CPT/HCPCS: 71250; 81003; 81015; 87077; 87086

== ENCOUNTER → 2025-06-04 06:43 | Outpatient (REF) | payer OTHER, SELFPAY ==
[2025-06-04 07:41] LABS: Hematocrit 37.8 % (37.0-47.0); Hemoglobin 12.7 g/dL (12.0-16.0); Mean Corp Hgb Conc. 33.6 g/dL (33.0-37.0); Mean Corpuscular Volume 108.0 fL (81.0-99.0); Nucleated Red Blood Cells % 0 %; Platelet Count 355 10^3/uL (130-400); Red Cell Dist. Width 13.7 % (11.5-14.5)
[2025-06-04 07:50] LABS: APTT 23.0 Sec (23.4-35.0); INR 1.07; PT 14.2 Sec (11.4-14.6)
[2025-06-04 08:08] LABS: Blood Urea Nitrogen 14 mg/dl (7-17); Calcium 9.1 mg/dl (8.4-10.2); Carbon Dioxide 25 mmol/L (22-30); Chloride 108 mmol/L (98-107); Glucose 78 mg/dl (70-99); Potassium 4.1 mmol/L (3.5-5.1); Sodium 139 mmol/L (135-145); eGFR > 60.00
== END ==
LOC: REG 06:43
PROVIDERS: ATTENDING PHYSICIAN Internal Medicine Critical Care Medicine
DX: R91.1 Solitary pulmonary nodule (principal); Z01.818 Encounter for other preprocedural examination
CPT/HCPCS: 36415; 80048; 85025; 85610; 85730; 93005

== ENCOUNTER 2025-06-09 06:06 | Day surgery (SDC) | payer OTHER, SELFPAY ==
--- NOTE | 2025-06-08 13:30 | PTCARENOTE ---
Patients 06/04 ECG abnormal- reviewed by Dr. Hutchins- no additional interventions required
[2025-06-09] VITALS (8 sets, daily range): BP systolic 110–155; BP diastolic 68–89; BMI 34.8
[2025-06-09] MEDS: VENTOLIN NEBULES 2.5 MG INH (10:51)
[2025-06-09 11:04] LABS: Glucose - Point of Care 84 mg/dl (70-99)
[2025-06-09 14:07] LABS: Glucose - Point of Care 90 mg/dl (70-99)
== END 2025-06-09 15:28 | disposition home or self-care (01) ==
LOC: SDS 06:06
PROVIDERS: ATTENDING PHYSICIAN Internal Medicine Critical Care Medicine
DX: R91.8 Other nonspecific abnormal finding of lung field (principal); R06.02 Shortness of breath
CPT/HCPCS: 31629; 31627; 31623; 31652; 31654; 31628; 43238; 31624; 71045; 76000; 82962; 87070; 87102; 87116; 87205; 88112; 88173; 88305; 88333; 94640; C1887

== ENCOUNTER → 2025-06-10 10:54 | Outpatient (REF) | payer OTHER, SELFPAY | LOC: RAD 10:54 | PROVIDERS: ATTENDING PHYSICIAN Internal Medicine Critical Care Medicine; FAMILY PHYSICIAN Nurse Practitioner Family | DX: R06.02 Shortness of breath (principal) | CPT/HCPCS: 71046 ==

== ENCOUNTER → 2025-06-24 07:48 | Outpatient (REF) | payer OTHER, SELFPAY ==
[2025-06-24 08:07] LABS: Glucose 100 mg/dl (70-99)
== END ==
LOC: PET 07:48
PROVIDERS: ATTENDING PHYSICIAN Internal Medicine Critical Care Medicine
DX: R91.1 Solitary pulmonary nodule (principal); Z01.818 Encounter for other preprocedural examination
CPT/HCPCS: 36415; 82947

== ENCOUNTER → 2025-07-02 11:03 | Outpatient (REF) | payer OTHER, SELFPAY | LOC: HWRCS 11:03 | PROVIDERS: ATTENDING PHYSICIAN Internal Medicine Critical Care Medicine; FAMILY PHYSICIAN Nurse Practitioner Family | DX: R06.02 Shortness of breath (principal); Z86.711 Personal history of pulmonary embolism | CPT/HCPCS: 93306 ==

== ENCOUNTER 2025-07-19 04:53 | Inpatient (IN) | payer OTHER, SELFPAY ==
[2025-07-08 08:41] VITALS: BMI 33.3
[2025-07-08 09:51] LABS: Hematocrit 41.5 % (37.0-47.0); Hemoglobin 14.1 g/dL (12.0-16.0); Mean Corp Hgb Conc. 34.0 g/dL (33.0-37.0); Mean Corpuscular Volume 106.1 fL (81.0-99.0); Nucleated Red Blood Cells % 0 %; Platelet Count 295 10^3/uL (130-400); Red Cell Dist. Width 13.9 % (11.5-14.5)
[2025-07-08 09:55] LABS: INR 0.98; PT 13.5 Sec (11.4-14.6)
[2025-07-08 10:02] LABS: ALT (SGPT) 17 U/L (0-35); AST (SGOT) 20 U/L (14-36); Albumin 4.3 g/dl (3.5-5.0); Alkaline Phosphatase 87 U/L (38-126); Blood Urea Nitrogen 12 mg/dl (7-17); Calcium 9.4 mg/dl (8.4-10.2); Carbon Dioxide 25 mmol/L (22-30); Chloride 109 mmol/L (98-107); Estimated Creatinine Clearance 76 ml/min; Glucose 80 mg/dl (70-99); Potassium 4.2 mmol/L (3.5-5.1); Sodium 138 mmol/L (135-145); Total Protein 6.8 g/dl (6.3-8.2); eGFR > 60.00
[2025-07-08 10:17] LABS: Urine Character Clear (Clear)
[2025-07-08 11:01] LABS: Glycohemoglobin (HgbA1c) 4.8 % (4.0-5.6)
--- NOTE | 2025-07-08 11:12 | CM ---
Met with and Mrs. Turner in [facility]'. She states prior to admission she resides with her spouse in a two story home with two steps to enter. She states she has a full flight of steps to get to bedroom/full bathroom. She states she has a powder room
on the first floor. She states prior to admission she was independent with ambulation in the home and uses a single point cane in the community. She states prior to admission she was independent with adls. She states she has a single point cane
and a CPAP Machine at home. She has a prescription plan. Her spouse will be home to assist in her care if needed. The discharge plan is to return home with her spouse and a home visit by the Transitional Care Nurse when medically stable.
We reviewed pre-op and post-op routines. We reviewed the shower instructions. She has the soap, written instructions and the Thoracic Surgery Educational Booklet. We also reviewed restrictions including driving and lifting restrictions. We
discussed a home visit by the Transitional Care Nurse. She is agreeable to home visit. The plan is for Robotic-assisted right upper Lobectomy on Saturday, July 19, 2025.
[2025-07-19] VITALS (14 sets, daily range): BP systolic 124–170; BP diastolic 76–105; BMI 22.9
[2025-07-19] MEDS: PROTONIX 40 MG PO (06:00)
[2025-07-19] MEDS: MAGNESIUM OXIDE 400 MG PO (06:00)
[2025-07-19] MEDS: BACTROBAN 2% OINTMENT 1 APPLIC NASAL (06:00)
[2025-07-19] MEDS: LOPRESSOR 25 MG PO (06:00)
--- NOTE | 2025-07-19 06:20 | W.CVOR.SURPR ---
CVOR Surgeon Immed Pre Op
-
I have examined this patient prior to performance of the scheduled procedure.
The patient's condition is unchanged from the time of the dictated/written History and
Physical and the patient is able to undergo the scheduled procedure.
RATS RUL + LN, will obtain intraop frozen section
--- NOTE | 2025-07-19 06:53 | PTCARENOTE ---
Pt admitted to room 2265. Confirmed NPO status and 2 CHG showers at home. Pt changed into gown. Weight and VS obtained. Oriented to room. ABO drawn and sent. Surgery site prepped and wiped w/ CHG wipes. Admission questions completed. Home
medications confirmed. Pt took their diltiazem and Lisinopril yesterday. PA and Argueta aware. Pt w/ history of ESBL in 2022 - placed on contact precautions. Ordered meds given. Call christensen within reach.
[2025-07-19 08:09] LABS: Urine Character Slightly Cloudy (Clear)
[2025-07-19] MEDS: ANCEF 10 IV (08:18)
[2025-07-19] MEDS: ANCEF IV (08:18)
[2025-07-19 08:28] LABS: Urine Squamous Cell 0-2 /LPF (Few)
[2025-07-19 08:29] LABS: Urine Red Blood Cell 0-2 /HPF (0-2)
--- NOTE | 2025-07-19 10:53 | W.PN.CT.SURG ---
CT Surgery Operative Note
-
THORACIC SURGERY OPERATIVE REPORT
Preoperative Diagnosis: Right upper lobe ground glass opacity with solid component concerning for malignancy
Postoperative Diagnosis: Same
Procedure(s) Performed:
1. Robotic assisted thoracic surgery (RATS)
2. Right upper lobectomy
3. Radical lymphadenectomy
4. Intercostal nerve block interspaces 4, 5, 6, 7
Date of Surgery: 07/19/2025
Comorbidities:
1. Ground glass opacity with solid component right upper lobe
2. Hypertension
3. Diabetes
4. Hyperlipidemia
5. Hypothyroidism
6. Raynaud's disease
7. Depression/anxiety
8. PE and DVT
9. Exposure to asbestos
10. Shingles
11. Morbidly obese
Attending Surgeon: Sunny Argueta MD, MS
Assistants: Mary Greene PA-C (present and necessary to first responder, exchanging robotic instruments, retraction, suction, exposure, suture management, and wound closure under my direction)
Anesthesiology: Pepito Roberts MD and Odessa Good CRNA
Scrub and Circulating RNs: Mita Vega RN, Rupa Julio RN
Anesthesia: Dual Lumen GETA
EBL: 150 cc
Products: None
Indication(s) for Procedures: This is a 64-year-old female who was found a right upper lobe mass measuring 1.9 cm there has been progressive changes concerning for malignancy. There is also ground glass components overall the size of the ground
glass with the mass was 4 cm. Robotic endoluminal bronchoscopy came back as benign tissue however given the concerning findings on imaging studies and the changes, she was referred to me for consideration of lobectomy. The patient did have
exposure to asbestos in the past. Given the concerning findings on imaging, multidisciplinary discussion between her aviculturist and myself was to treat as if it was cancer. [facility] malignancy risk score of 60%.
Findings: There are no obvious intrathoracic lesions concerning for metachronous disease. Lymph nodes all appear normal. The right upper lobe was isolated, she did have a nice complete fissure between the right upper and right lower lobes. There
was an incomplete fissure between the right upper and right middle lobes. The branches of the pulmonary artery and pulmonary veins leading to the right upper lobe were isolated and then transected with white load staplers. Inflation test was done
after clamping the bronchus leading to the right upper lobe which demonstrated unobstructed flow to the remaining lobes. Overall tissue was quite friable and there was some oozing from the vasopressor arm as well as raw tissue surfaces. There was
no significant loss in tidal volumes at the inclusion the case. There was intermittent +1 airleak. No blood products were given. Preliminary frozen section pathology report was no obvious malignancy. There was a necrotic cavity.
Specimen(s):
Station 9, x 1 nodes
Station 8, x 0 nodes
Station 10, x 0 nodes
Station 11, x 3 nodes
Station 4, x 2 nodes
Station 2, x 0 nodes
Station 5, x 0 nodes
Station 6, x 0 nodes
Station 7, x 6 nodes
Right upper lobe lobe
Description of Procedure: The patient was taken to the operating room. Induction via general anesthesia with endotracheal intubation was performed and peripheral venous access and arterial monitoring were inserted. Their identity and procedure to be
performed were verified and they were positioned with the right side up on the operating table. The patient was then prepped and draped in a sterile fashion. A preoperative time-out was performed with all members of the team present. A Veress
needle was used to insufflate the chest after isolating the lung. An 8 mm port was placed in the midaxillary line at approximately the eighth intercostal space and confirmed to be intrathoracic without significant pulmonary injury. The chest was
surveyed for any evidence of metastatic disease. Patient tolerate insufflation without complication. 2 additional 12 mm trocars were placed on either side under camera guidance and a third 8 mm trocar was placed along the back. A 12 mm dyer assistant
port was placed in the 11th intercostal space above the insertion of the diaphragm. An intercostal nerve block was performed at intercostal spaces 4 through 7 with 5 cc of bupivacaine mixture in each.
The thoracic cavity was inspected for evidence of metastatic disease. None was observed. We started with mobilization of the inferior pulmonary ligament. We worked our way clockwise dissecting out the hilum and harvest any lymph nodes identified.
The pulmonary arteries and veins leading to the right upper lobe were identified and skeletonized. They were sequentially divided with a white load stapler. Of note there were 2 significant branches leading up to the right upper lobe. I clamped
the bronchus and performed a test inflation which demonstrated unobstructed flow into the remaining right middle and right lower lobe. The specimen was displaced toward the apex while a chest tube was inserted and placed laterally towards the apex.
CoSeal was used to reinforce the staple lines and hilum. The right upper lobe was then placed into a specimen bag and extracted from the chest cavity. After confirming hemostasis, the lung was fully inflated and all ports were removed. Incisions
were closed in 3 layers including the fascia, dermal, and epidermis. Additional local anesthesia was injected into all incision sites. The skin wound was cleansed and sealed with Dermabond glue.
All instrument, sponge, and needle counts were confirmed to be correct x 2 at the end of the operation. The patient was transferred to the cardiac intensive care unit extubated in critical but stable condition.
I, Dr. Sunny Argueta, was present, scrubbed for, and performed all critical elements of this procedure.
Sunny Argueta MD, MS
Cardiothoracic Surgeon
[facility]
This operative dictation was created using the Zoop dictation system. Please excuse any grammatical, typographical, or 'sound alike' errors
[2025-07-19 11:19] LABS: Glucose - Point of Care 138 mg/dl (70-99)
--- NOTE | 2025-07-19 11:23 | CM ---
Chart reviewed. Patient is in the OR today. Patient is independent of ADLS, lives with her in a 2 [address], 2 [facility], ambulates with a SPC. Plan is for the patient to return home with CT Transitional RN. CM to follow
[2025-07-19] MEDS: DILAUDID 0.5 MG IV ×2 (11:32→15:43)
[2025-07-19] MEDS: DILAUDID 0.25 MG IV ×2 (11:50→21:41)
--- NOTE | 2025-07-19 12:45 | PTCARENOTE ---
Pt arrived to CVICU at 1230. Pt is drowsy but arousable. Pt SR/SB with HR 50's-60's. BP 130/72 MAP 94. Pulse oximetry 95% on 2L nasal cannula. Right lateral chest tube in place, minimal +1 intermittent air leak present, no sign of crepitus. Right
lateral incisions approximated with surgical adhesive and STRIKE OFF MACHINE OPERATOR. Left radial Raissa intact. Pt currently resting comfortably with call christensen within reach.
[2025-07-19 12:58] LABS: B.E. - POC -4.8 mmol/L; Glucose - POC 136 mg/dl (70-99); HCO3 - POC 22 mmol/L (21-28); Hematocrit - POC 29 % PCV (37-47); Hemodilution- POC No; Hemoglobin Calculated - POC 9.9; Ionized Calcium - POC 1.16 mmol/L (1.15-1.33); Lactate - POC 0.78 mmol/L (0.36-0.75); O2 Saturation %Calculated-POC 89.7 % (94-98); PCO2 - POC 48 mmHg (35-48); PO2 - POC 66 mmHg (83-108); Potassium - POC 3.4 mmol/L (3.5-5.1); Sodium - POC 143 mmol/L (136-145); Specimen Type - POC Arterial; pH - POC 7.27 (7.35-7.45)
[2025-07-19] MEDS: TORADOL 15 MG IV ×2 (13:18→20:02)
--- NOTE | 2025-07-19 15:34 | CON.PUL ---
Consultation
Consultation Request
Date/Time Consultation Requested: 07/19/2025
Date/Time Consultation Performed: 07/19/2025
Medical History
-
Chief Complaint: Lung nodule
History of Present Illness:
Patient is a 64-year-old gentleman who was noted to have a right upper lobe pulmonary nodule. Patient had robotic bronchoscopy which was nondiagnostic and subsequently PET scan which was equivocal. Patient noted to have slight growth over
subsequent imaging concerning for malignancy and was referred to CT surgery for further evaluation. Patient was admitted to the hospital today and had robotic assisted thoracic surgery with right upper lobectomy along with radical lymphadenectomy.
Postprocedure, patient was brought to CVICU and pulmonary consultation was requested for further input.
Past medical history. Hypertension, hyperlipidemia, diabetes, mild intermittent asthma, Raynaud's disease, overactive bladder, depression/anxiety, obstructive sleep apnea, history of unprovoked pulmonary embolism as well as DVT. Shingles.
Past surgical history. Nasal polyp excision, D&C, cystoscopy, laminectomy. Robotic bronchoscopy and biopsy right upper lobe, 06/2025.
Family history. No family history of lung cancer.
Social history. Patient is a non-smoker.
Allergies / Home Medications
Allergies
Allergy/AdvReac Type Severity Reaction Status Date / Time
Sulfa (Sulfonamide Allergy Unknown Unknown Verified 07/19/25 05:59
Antibiotics)
Penicillins Allergy Pharmacy Verified 07/06/25 10:51
to Review
Home Medications
�Medication �Instructions �Recorded �Confirmed �Last Taken �Type
diltiazem HCl 120 mg 180 mg PO DAILY Arrhythmia 07/18/24 07/19/25 07/18/25 20:30 History
capsule,extended release 24 hr
(Cartia XT)
estradiol 0.01% (0.1 mg/gram) 1 g vaginal WEEKLY Hormonal Agent 07/18/24 07/19/25 07/01/25 History
vaginal cream
levothyroxine 175 mcg tablet 175 mcg PO DAILY Thyroid 07/18/24 07/19/25 07/16/25 08:00 History
lisinopril 10 mg tablet 20 mg PO DAILY Blood Pressure 07/18/24 07/19/25 07/18/25 08:00 History
montelukast 10 mg tablet 10 mg PO DAILY Allergies 07/18/24 07/19/25 07/18/25 08:00 History
(Singulair)
oxybutynin chloride 15 mg 15 mg PO HS Urinary Issue 07/18/24 07/19/25 07/18/25 20:30 History
tablet,extended release 24 hr
tramadol 50 mg tablet 50 mg PO Q8H PRN pain 07/18/24 07/19/25 06/19/25 History
guaifenesin 100 mg/5 mL oral liquid 200 mg (10 mL) PO Q4HPRN PRN cough 07/21/24 07/19/25 07/14/25 Rx
#500 mL
albuterol sulfate 90 mcg/actuation 2 puff inhalation PRN PRN SOB 06/03/25 07/19/25 07/19/25 05:00 History
aerosol inhaler
lisinopril 10 mg tablet 10 mg PO HS Blood Pressure 06/03/25 07/19/25 07/18/25 20:30 History
metformin 500 mg tablet 500 mg PO DAILY Diabetes 06/03/25 07/19/25 07/18/25 08:00 History
semaglutide 1 mg/dose (4 mg/3 mL) 1 mg SC MEHTA Diabetes 06/03/25 07/19/25 07/04/25 08:00 History
subcutaneous pen injector (Ozempic)
fluticasone fur. 100 mcg-umeclid 1 inh inhalation DAILY 07/06/25 07/19/25 07/18/25 08:00 History
62.5 mcg-vilant 25 mcg Lung/Breathing Issues
inhalat.powder (Trelegy Ellipta)
losartan 25 mg tablet 25 mg PO DAILY Blood Pressure 07/19/25 07/19/25 07/18/25 08:00 History
Review of Systems
-
Hematologic/Lymphatic: Other (Mild post-op pain. Otherwise unremarkable )
Vitals / Labs / Diagnostic Testing
Vital Signs
Temp Pulse Resp BP Pulse Ox
97.8 F 63 17 132/94 96
07/19/25 15:00 07/19/25 15:10 07/19/25 15:10 07/19/25 15:00 07/19/25 15:10
Lab Data
07/08/25 08:37
07/08/25 08:37
Diagnostic Testing:
Physical Exam
-
HEENT: Normocephalic
Cardiovascular: S1/S2
Respiratory: Clear and Non-Labored Respirations
GI: Soft and Non Distended
Neurology: Awake and Alert
Skin: Warm
General: Comfortable
Assessment
-
#1. RUL pulmonary Nodule, subsolid with both solid and ground glass component
- Robotic bronchoscopy non-diagnostic with equivocal PET-CT
- S/p RATS Lobectomy and radical lymphadenectomy, 07/19/2025, await pathology
- Chest tube in place, no air leak noted
#2. Severe KYLER
- Continue CPAP nightly and when napping
#3. H/o VTE
-Unprovoked submassive bilateral PE with RV strain in 07/2024. Also had concomitant DVT.
-Patient reports having completed anticoagulation in 01/2025.
-Resume out patient follow up with Hematology/Pulmonary clinic post discharge
#4. H/o Mild intermittent Asthma
PFT 10/2024: FEV1 104%, FEV1/FVC 78 with FVC 101%. Normal spirometry without evidence of obstruction or restriction. Minimally decreased diffusion capacity at 77% of predicted.
- Patient on Trelegy as per home medications, currently on Spiriva and Symbicort. No wheezing on exam
#4. Pulmonary HTN.
- ECHO suggestive of Moderate TR with PASP of 51.
- Suspect pulmonary hypertension is multifactorial with prior history of submassive pulmonary embolism, underlying obstructive sleep apnea as well as asthma
- This can be further followed up as outpatient
Other medical diagnoses:
- Hypertension
- Hypothyroidism
- Diabetes
- Depression/anxiety
- BMI 32.9
- History of Raynaud's disease
Patient follows up with Dr. Strong at [facility] pulmonary clinic, will resume follow-up postdischarge
Total time spent on this consultation/encounter __64__ minutes which includes review of history, physical exam, medications, laboratory data, personal review of imaging, extensive review of outpatient records, discussion with care team and
respiratory therapy.
Data:
CXR 07/2025: 1. Right chest tube in position. No pneumothorax identified.
2. Probable pneumoperitoneum as above. This is presumably sequela of surgery performed earlier the same date.
ECHO 06/2025: 1. Normal biventricular size and function without regional wall motion abnormalities.
2. LVEF is 55-60% by visual estimation. Mild concentric LVH.
3. Mild to moderate tricuspid regurgitation.
4. Moderately elevated estimated PASP at 51 mmHg.
5. Compared to prior from September 16, 2024, no significant change.
Robotic Bronchoscopy 06/2025: RUL mass. Pathology nondiagnostic.
PET-CT 06/2025: Multiple pulmonary lesions as described, 2 of which demonstrate slightly elevated standard uptake values of 3 and 3.3, remaining relatively stable/without significant increase on dual time point imaging. However, also without
significant decrease in the SUV on delayed imaging. Such findings are equivocal for neoplasm, given that such findings may also be seen with inflammation. Anatomically, the degree of surrounding interstitial and groundglass opacity associated with
the right upper lobe lesion appears to have improved slightly. The left upper lobe lesion appears smaller in size, more localized and slightly increased in density compared to prior examination.
Further evaluation may be considered with with CT-guided biopsy, or a more conservative route may include continued surveillance with short-term follow-up imaging.
1.5 cm focus of FDG activity along the left posterolateral rectal margin. Although likely physiologic, recommend correlation with physical examination/digital rectal examination.
[2025-07-19] MEDS: ANCEF 5 IV (15:42)
[2025-07-19] MEDS: NEURONTIN 100 MG PO ×2 (15:43→21:33)
[2025-07-19] MEDS: ZOFRAN 4 MG IV (17:45)
--- NOTE | 2025-07-19 18:00 | PTCARENOTE ---
Raissa d/c'd per order. Pt voided in bedside commode. Pt remains SR with HR 65. BP 136/82 MAP 98. Pulse oximetry 95% on room air. Pt currently OOB in chair with call christensen within reach.
[2025-07-19 18:23] LABS: Glucose - Point of Care 175 mg/dl (70-99)
--- NOTE | 2025-07-19 20:00 | PTCARENOTE ---
assumed care of pt from previous RN. pt A&Ox4, resting in chair at time of assessment. pt assisted to BSC, then back to bed.SR on tele-monitor. POX 87% on RA. pt placed on 4 L NC, POX 94-95%. R lateral CT to -20cm wall suction, draining sanguineous
drainage. +1 intermittent air leak noted. abd s/n, +BS. pt w/ one episode of emesis after dinner. reglan given. all surgical sites stable, CDI. see worklist for complete nursing assessment, interventions, VS, and I&Os.
[2025-07-19] MEDS: REGLAN 10 MG IV (20:02)
[2025-07-19] MEDS: ZESTRIL 10 MG PO (21:33)
[2025-07-19] MEDS: SENOKOT PO (21:33)
[2025-07-19] MEDS: TYLENOL 1000 MG PO (21:33)
[2025-07-19] MEDS: DITROPAN 7.5 MG PO (21:34)
[2025-07-19 21:38] LABS: Glucose - Point of Care 156 mg/dl (70-99)
[2025-07-20] VITALS (12 sets, daily range): BP systolic 118–152; BP diastolic 81–95; BMI 33.4
--- NOTE | 2025-07-20 | PTCARENOTE ---
assessment remains unchanged. VSS.
[2025-07-20] MEDS: ANCEF 5 IV ×2 (02:51→08:00)
[2025-07-20] MEDS: DILAUDID 0.25 MG IV ×3 (02:51→19:59)
[2025-07-20 03:20] LABS: Hematocrit 40.5 % (37.0-47.0); Hemoglobin 13.2 g/dL (12.0-16.0); Mean Corp Hgb Conc. 32.6 g/dL (33.0-37.0); Mean Corpuscular Volume 109.5 fL (81.0-99.0); Platelet Count 249 10^3/uL (130-400); Red Cell Dist. Width 13.6 % (11.5-14.5)
--- NOTE | 2025-07-20 03:25 | PTCARENOTE ---
no acute changes. VSS. AM labs collected and sent.
[2025-07-20 03:38] LABS: Blood Urea Nitrogen 16 mg/dl (7-17); Calcium 8.8 mg/dl (8.4-10.2); Carbon Dioxide 22 mmol/L (22-30); Chloride 106 mmol/L (98-107); Estimated Creatinine Clearance 88 ml/min; Glucose 148 mg/dl (70-99); Magnesium 2.2 mg/dl (1.6-2.3); Potassium 5.2 mmol/L (3.5-5.1); Sodium 136 mmol/L (135-145); eGFR > 60.00
--- NOTE | 2025-07-20 04:30 | W.PN.CT ---
Today's Communication / Plan
-
Plan:
-No major issues overnight
-Chest tube to -20 cmH2o wall suction, no air leak. Drained 95/170
-F/U CXR
-Resumed antihypertensive meds
-F/U hyperkalemia, received Lokelma
-Wean off of O2, currently on 4L
-OOB into chair/Ambulate
-F/U urine culture
-F/U pathology
Assessment / Plan
-
Assessment:
-S/P Robotic assisted thoracic surgery (RATS)/ Right upper lobectomy/Radical lymphadenectomy/Intercostal nerve block interspaces 4, 5, 6, 7, by Dr. Argueta, 07/19/25, pod#1
1. Ground glass opacity with solid component right upper lobe
2. Hypertension
3. Diabetes
4. Hyperlipidemia
5. Hypothyroidism
6. Raynaud's disease
7. Depression/anxiety
8. PE and DVT
9. Exposure to asbestos
10. Shingles
11. Morbidly obese/class 1 (BMI 33.3)
-Acute postop hyperkalemia, 5.2
-Suspected UTI, urine culture pending
Discussed patient care with: Nursing, Respiratory Therapy, Pharmacy and Care Team
Subjective
-
Date of Service: July 20, 2025
Pt c/o mild pleuritic chest pain, otherwise feels well
Objective Data
-
Lab Results
07/20/25 03:03
07/20/25 03:03
PT 13.5 Sec (11.4-14.6) 07/08/25 08:37
INR 0.98 07/08/25 08:37
Vital Signs
Vital Signs
Temp Pulse Resp BP Pulse Ox
98 F 71 14 149/94 94
07/20/25 00:00 07/20/25 03:00 07/20/25 00:00 07/20/25 02:31 07/20/25 03:00
CT Intake/Output/Weight
07/19/25 07/19/25 07/20/25
06:59 18:59 06:59
Intake Total 50 / 50
Output Total 225 / 510 285 / 510
Balance -175 / -460 -285 / -460
SaO2: 94 (RA)
[2025-07-20 04:36] LABS: Hepatitis C Antibody Negative (Negative)
[2025-07-20] MEDS: LOKELMA 10 GRAM PO (05:39)
[2025-07-20] MEDS: SENOKOT PO (07:59)
[2025-07-20] MEDS: MIRALAX 17 GRAMS PO (08:00)
[2025-07-20] MEDS: ZESTRIL 20 MG PO (08:00)
--- NOTE | 2025-07-20 08:00 | PTCARENOTE ---
Handoff report received from nightshift RN. Pt OOB in chair. Pt Aox4, NSR on monitor 80s-90s, SBP 130s-140s, 4L NC satting 96%, O2 weaned to 2L NC. R pleural CT in place, sutures intact. CT placed to H2O seal by ENVIRONMENTAL SAMPLER this AM. No crepitus or airleak
noted at this time, but tidaling present. L radial dressing CDI. surgical sites glued and FOIL OPERATOR. no edema notes, +2 pulses. Patient ambulated to bathroom with PT, tolerated well. PRN zoe given for pain. All needs met at this time, call christensen within
reach.
[2025-07-20] MEDS: NEURONTIN 100 MG PO ×3 (08:01→19:59)
[2025-07-20] MEDS: SINGULAIR 10 MG PO (08:01)
[2025-07-20] MEDS: LIDOCAINE 4% PATCH 1 PATCH TOPICAL (08:01)
[2025-07-20] MEDS: TYLENOL 1000 MG PO ×3 (08:02→19:59)
[2025-07-20] MEDS: DITROPAN 7.5 MG PO ×2 (08:02→19:58)
[2025-07-20] MEDS: SYNTHROID 175 MCG PO (08:02)
[2025-07-20] MEDS: COZAAR 50 MG PO (08:02)
[2025-07-20] MEDS: GLUCOPHAGE 500 MG PO (08:02)
[2025-07-20] MEDS: SPIRIVA RESPIMAT 2.5 MCG 2 PUFF INH (08:31)
[2025-07-20] MEDS: SYMBICORT 80/4.5 MCG INHALER 2 PUFF INH ×2 (08:32→19:58)
[2025-07-20] MEDS: ROXICODONE 2.5 MG PO (10:01)
--- NOTE | 2025-07-20 10:32 | CM ---
Chart reviewed. Patient is independent of ADLS, lives with her in a 2 [address], 2 [facility], ambulates with a SPC. Plan is for the patient to return home with CT Transitional RN. CM to follow
[2025-07-20 12:00] LABS: Glucose - Point of Care 115 mg/dl (70-99)
--- NOTE | 2025-07-20 12:00 | PTCARENOTE ---
Patient OOB in chair. CXR completed. Bloodwork sent to lab. CT remains to H2O seal at this time, no crepitus pr airleak noted. All needs met at this time, call christensen within reach.
--- NOTE | 2025-07-20 12:36 | W.PN.PUL3 ---
Today's Communication / Plan
-
- Chest tube management per primary team
- Outpatient follow-up with pulmonary clinic postdischarge
Assessment
-
Patient is a 64-year-old gentleman who was noted to have a right upper lobe pulmonary nodule. Patient had robotic bronchoscopy which was nondiagnostic and subsequently PET scan which was equivocal. Patient noted to have slight growth over
subsequent imaging concerning for malignancy and was referred to CT surgery for further evaluation. Patient was admitted to the hospital today and had robotic assisted thoracic surgery with right upper lobectomy along with radical lymphadenectomy.
Postprocedure, patient was brought to CVICU and pulmonary consultation was requested for further input.
#1. RUL pulmonary Nodule, subsolid with both solid and ground glass component
- Robotic bronchoscopy non-diagnostic with equivocal PET-CT
- S/p RATS Lobectomy and radical lymphadenectomy, 07/19/2025, await pathology
- Chest tube in place, no air leak noted
#2. Severe KYLER
- Continue CPAP nightly and when napping
#3. H/o VTE
-Unprovoked submassive bilateral PE with RV strain in 07/2024. Also had concomitant DVT.
-Patient reports having completed anticoagulation in 01/2025.
-Resume out patient follow up with Hematology/Pulmonary clinic post discharge
#4. H/o Mild intermittent Asthma
PFT 10/2024: FEV1 104%, FEV1/FVC 78 with FVC 101%. Normal spirometry without evidence of obstruction or restriction. Minimally decreased diffusion capacity at 77% of predicted.
- Patient on Trelegy as per home medications, currently on Spiriva and Symbicort. No wheezing on exam
#4. Pulmonary HTN.
- ECHO suggestive of Moderate TR with PASP of 51.
- Suspect pulmonary hypertension is multifactorial with prior history of submassive pulmonary embolism, underlying obstructive sleep apnea as well as asthma
- This can be further followed up as outpatient
Other medical diagnoses:
- Hypertension
- Hypothyroidism
- Diabetes
- Depression/anxiety
- BMI 32.9
- History of Raynaud's disease
Patient follows up with Dr. Strong at [facility] pulmonary clinic, will resume follow-up postdischarge
Total time spent on this consultation/encounter __32__ minutes which includes review of history, physical exam, medications, laboratory data, personal review of imaging, extensive review of outpatient records, discussion with care team and
respiratory therapy.
Data:
CXR 07/2025: 1. Right chest tube in position. No pneumothorax identified.
2. Probable pneumoperitoneum as above. This is presumably sequela of surgery performed earlier the same date.
ECHO 06/2025: 1. Normal biventricular size and function without regional wall motion abnormalities.
2. LVEF is 55-60% by visual estimation. Mild concentric LVH.
3. Mild to moderate tricuspid regurgitation.
4. Moderately elevated estimated PASP at 51 mmHg.
5. Compared to prior from September 16, 2024, no significant change.
Robotic Bronchoscopy 06/2025: RUL mass. Pathology nondiagnostic.
PET-CT 06/2025: Multiple pulmonary lesions as described, 2 of which demonstrate slightly elevated standard uptake values of 3 and 3.3, remaining relatively stable/without significant increase on dual time point imaging. However, also without
significant decrease in the SUV on delayed imaging. Such findings are equivocal for neoplasm, given that such findings may also be seen with inflammation. Anatomically, the degree of surrounding interstitial and groundglass opacity associated with
the right upper lobe lesion appears to have improved slightly. The left upper lobe lesion appears smaller in size, more localized and slightly increased in density compared to prior examination.
Further evaluation may be considered with with CT-guided biopsy, or a more conservative route may include continued surveillance with short-term follow-up imaging.
1.5 cm focus of FDG activity along the left posterolateral rectal margin. Although likely physiologic, recommend correlation with physical examination/digital rectal examination.
Subjective Data
-
Date of Service:
Date of Service: July 20, 2025
Subjective:
Patient comfortably sitting in chair, in no acute distress.
Review of Systems
Genitourinary: Other (All 14 systems reviewed and negative except as stated above in the history of present illness.)
Objective Data
Data Reviewed
Vital Signs / I&O / Oxygen:
Vital Signs
Temp Pulse Resp BP Pulse Ox
98 F 89 12 142/94 96
07/20/25 12:00 07/20/25 12:16 07/20/25 12:00 07/20/25 12:03 07/20/25 08:00
Intake and Output
07/19/25 07/20/25 07/21/25
06:59 06:59 06:59
Intake Total 50 / 50
Output Total 510 / 510
Balance -460 / -460 - -
SaO2 96
Nasal Cannula flow liters per 2
minute
Physical Exam
General: Comfortable
HEENT: Normocephalic
Cardiovascular: S1-S2
Respiratory: Clear
GI: Soft and Non Distended
Neurology: Awake and Alert
Skin: Warm
Labs/Micro/Reports
Lab Data
07/20/25 03:03
Microbiology
07/19/25 07:00 Urine Urine Culture - Preliminary
Escherichia coli
[2025-07-20 12:48] LABS: Potassium 4.7 mmol/L (3.5-5.1)
--- NOTE | 2025-07-20 15:00 | PTCARENOTE ---
Patient Ax1 with cane to bathroom then back to bed. R pleural CT d/c'd per order by Neetu KOO. Patient resting in bed at this time. All needs met, call christensen within reach.
[2025-07-20 17:12] LABS: Glucose - Point of Care 123 mg/dl (70-99)
--- NOTE | 2025-07-20 19:00 | PTCARENOTE ---
Patient resting in bed at this time. VSS. Chest tube site dressing CDI. IS encouraged. All needs met at this time, call christensen within reach. Handoff report given to nightshift RN.
--- NOTE | 2025-07-20 19:33 | PTCARENOTE ---
vitals downloaded from previous shift by this RN.
[2025-07-20] MEDS: MACROBID 100 MG PO (19:58)
[2025-07-20] MEDS: SENOKOT 8.6 MG PO (19:59)
[2025-07-20] MEDS: REMOVE LIDOCAINE PATCH 1 PATCH REMOVE (19:59)
[2025-07-20] MEDS: ZESTRIL 10 MG PO (20:00)
--- NOTE | 2025-07-20 20:00 | PTCARENOTE ---
assumed care of pt from previous RN. pt A&Ox4, resting in bed at time of assessment. SR on tele-monitor. POX 94% on RA. abd s/n, +BS. all surgical sites stable, CDI. PIV intact. see worklist for complete nursing assessment, interventions, VS, and
I&Os.
[2025-07-20] MEDS: MUCINEX 600 MG PO (23:13)
--- NOTE | 2025-07-20 23:30 | PTCARENOTE ---
assessment remains unchanged. POX 87% on RA. pt placed on 2 L NC, POX 93-94%.
[2025-07-21 03:43] VITALS: BP 158/96
[2025-07-21] MEDS: FLEXERIL 5 MG PO (04:40)
[2025-07-21] MEDS: ROXICODONE 2.5 MG PO (04:41)
[2025-07-21 04:56] LABS: Hematocrit 39.2 % (37.0-47.0); Hemoglobin 13.1 g/dL (12.0-16.0); Mean Corp Hgb Conc. 33.4 g/dL (33.0-37.0); Mean Corpuscular Volume 106.2 fL (81.0-99.0); Platelet Count 202 10^3/uL (130-400); Red Cell Dist. Width 13.4 % (11.5-14.5)
[2025-07-21 05:34] LABS: Blood Urea Nitrogen 23 mg/dl (7-17); Calcium 9.1 mg/dl (8.4-10.2); Carbon Dioxide 22 mmol/L (22-30); Chloride 105 mmol/L (98-107); Estimated Creatinine Clearance 69 ml/min; Glucose 84 mg/dl (70-99); Potassium 4.5 mmol/L (3.5-5.1); Sodium 136 mmol/L (135-145); eGFR > 60.00
[2025-07-21 06:00] VITALS: BMI 33.7
[2025-07-21] MEDS: SYNTHROID 175 MCG PO (06:37)
[2025-07-21] MEDS: TYLENOL 1000 MG PO ×2 (06:37→13:39)
--- NOTE | 2025-07-21 06:47 | W.PN.CT ---
Today's Communication / Plan
-
Plan:
-No major issues overnight
-Chest tube d/c'd yesterday 07/20
-Noted to have small right apical ptx
-F/U official cxr report
-Resumed antihypertensive meds
-Started on Microbid for E.Coli UTI
-OOB into chair/Ambulate
-F/U pathology
-Home with repeat cxr to f/u with Dr. Argueta
Assessment / Plan
-
Assessment:
-S/P Robotic assisted thoracic surgery (RATS)/ Right upper lobectomy/Radical lymphadenectomy/Intercostal nerve block interspaces 4, 5, 6, 7, by Dr. Argueta, 07/19/25, pod#2
1. Ground glass opacity with solid component right upper lobe
2. Hypertension
3. Diabetes
4. Hyperlipidemia
5. Hypothyroidism
6. Raynaud's disease
7. Depression/anxiety
8. PE and DVT
9. Exposure to asbestos
10. Shingles
11. Morbidly obese/class 1 (BMI 33.3)
-Acute postop hyperkalemia, 5.2
-Acute postop E.Coli UTI
Discussed patient care with: Cardiology, Nursing, Respiratory Therapy, Pharmacy and Care Team
Subjective
-
Date of Service: July 21, 2025
Pt c/o mild incisional pain, otherwise feels well. No SOB overnight
Objective Data
-
Lab Results
07/21/25 04:46
07/21/25 04:46
PT 13.5 Sec (11.4-14.6) 07/08/25 08:37
INR 0.98 07/08/25 08:37
Vital Signs
Vital Signs
Temp Pulse Resp BP Pulse Ox
97.6 F 78 16 158/96 93
10/15/25 04:00 07/21/25 06:00 07/21/25 04:00 07/21/25 03:43 07/21/25 05:00
CT Intake/Output/Weight
07/20/25 07/20/25 07/21/25
06:59 18:59 06:59
Output Total 285 / 510 26 / 676 650 / 676
Balance -285 / -460 -26 / -676 -650 / -676
SaO2: 93 (RA)
Physical Exam
-
General: Awake, Oriented and AOx3
Cardiovascular: Regular rate & rhythm, No Murmurs, No Rub and No Gallop
Respiratory: Decreased Breath Sounds (on right, otherwise clear)
Incision: Clean, Dry, Intact and Dressing Intact
Extremities: No Edema
Data Reviewed
-
Lab Results: Results Reviewed
Medications: Active Meds Reviewed
Chest X-Ray: Report Reviewed and Image Reviewed
ECG: Report Reviewed and Image Reviewed
[2025-07-21 07:42] VITALS: BP 151/91
[2025-07-21 07:43] VITALS: BP 151/91
[2025-07-21] MEDS: GLUCOPHAGE 500 MG PO (07:44)
[2025-07-21] MEDS: MACROBID 100 MG PO (07:45)
[2025-07-21] MEDS: SENOKOT PO (07:45)
[2025-07-21] MEDS: TORADOL 15 MG IV (07:46)
[2025-07-21] MEDS: COZAAR 50 MG PO (07:46)
[2025-07-21] MEDS: NEURONTIN 100 MG PO (07:46)
[2025-07-21] MEDS: ZESTRIL 20 MG PO (07:46)
[2025-07-21] MEDS: MUCINEX 600 MG PO (07:46)
[2025-07-21] MEDS: SINGULAIR 10 MG PO (07:46)
[2025-07-21] MEDS: DITROPAN 7.5 MG PO (07:47)
[2025-07-21] MEDS: MIRALAX 17 GRAMS PO (07:47)
[2025-07-21] MEDS: LIDOCAINE 4% PATCH 1 PATCH TOPICAL (07:47)
[2025-07-21] MEDS: SYMBICORT 80/4.5 MCG INHALER 2 PUFF INH (07:48)
[2025-07-21] MEDS: SPIRIVA RESPIMAT 2.5 MCG 2 PUFF INH (07:48)
[2025-07-21 07:56] LABS: Glucose - Point of Care 84 mg/dl (70-99)
--- NOTE | 2025-07-21 08:00 | PTCARENOTE ---
Handoff report received from nightshift RN. Pt AOx4, NSR 70s-80s, SBP 120s-150s, RA satting 92%. Pt OOB in chair at this time. Pt c/o sharp R sided pain this AM, PRN toradol given. Patient uses IS independently, up to about 1999 on IS. Surgical
sites approximated with skin glue, CDI. Chest tube site dressing CDI. All needs met at this time, call christensen within reach.
--- NOTE | 2025-07-21 11:14 | CM ---
Chart reviewed. Patient OOB sitting in the chair, at bedside. Patient is independent of ADLS, lives with her in a [address], [address] [facility], ambulates with a SPC. Plan is for the patient to return home with CT Transitional RN. CM to follow
[2025-07-21 11:35] VITALS: BP 154/103
[2025-07-21] MEDS: MOTRIN 400 MG PO (11:40)
[2025-07-21 11:41] VITALS: BP 140/99
[2025-07-21 11:43] VITALS: BP 140/99
--- NOTE | 2025-07-21 12:00 | PTCARENOTE ---
Patient OOB in chair. Patient c/o pain on R side from surgical sites, PRN ibuprofen given. VSS, AOx4, NSR 60s, SBP 140s, RA satting 92%. All needs met at this time, call christensen within reach.
[2025-07-21 12:27] LABS: Glucose - Point of Care 105 mg/dl (70-99)
--- NOTE | 2025-07-21 12:38 | W.PN.PUL3 ---
Today's Communication / Plan
-
- Pulmonary team will sign off, please call as needed
- Outpatient pulmonary follow-up scheduled with Dr. Strong at [facility]
Assessment
-
Patient is a 64-year-old gentleman who was noted to have a right upper lobe pulmonary nodule. Patient had robotic bronchoscopy which was nondiagnostic and subsequently PET scan which was equivocal. Patient noted to have slight growth over
subsequent imaging concerning for malignancy and was referred to CT surgery for further evaluation. Patient was admitted to the hospital today and had robotic assisted thoracic surgery with right upper lobectomy along with radical lymphadenectomy.
Postprocedure, patient was brought to CVICU and pulmonary consultation was requested for further input.
#1. RUL pulmonary Nodule, subsolid with both solid and ground glass component
- Robotic bronchoscopy non-diagnostic with equivocal PET-CT
- S/p RATS Lobectomy and radical lymphadenectomy, 07/19/2025, await pathology
- Chest tube removed, trace right upper pneumothorax noted. Management per cardiothoracic surgery service
- Patient comfortably sitting in chair, saturating mid 90s on room air. No respiratory distress noted on exam. X-ray minimal changed over last 24 hours.
#2. Severe KYLER
- Continue CPAP nightly and when napping
#3. H/o VTE
-Unprovoked submassive bilateral PE with RV strain in 07/2024. Also had concomitant DVT.
-Patient reports having completed anticoagulation in 01/2025.
-Resume out patient follow up with Hematology/Pulmonary clinic post discharge
#4. H/o Mild intermittent Asthma
PFT 10/2024: FEV1 104%, FEV1/FVC 78 with FVC 101%. Normal spirometry without evidence of obstruction or restriction. Minimally decreased diffusion capacity at 77% of predicted.
- Patient on Trelegy as per home medications, currently on Spiriva and Symbicort. No wheezing on exam
#4. Pulmonary HTN.
- ECHO suggestive of Moderate TR with PASP of 51.
- Suspect pulmonary hypertension is multifactorial with prior history of submassive pulmonary embolism, underlying obstructive sleep apnea as well as asthma
- This can be further followed up as outpatient
Other medical diagnoses:
- Hypertension
- Hypothyroidism
- Diabetes
- Depression/anxiety
- BMI 32.9
- History of Raynaud's disease
Patient follows up with Dr. Strong at [facility] pulmonary clinic, will resume follow-up postdischarge
Total time spent on this consultation/encounter __32__ minutes which includes review of history, physical exam, medications, laboratory data, personal review of imaging, extensive review of outpatient records, discussion with care team and
respiratory therapy.
Data:
CXR 07/2025: 1. Right chest tube in position. No pneumothorax identified.
2. Probable pneumoperitoneum as above. This is presumably sequela of surgery performed earlier the same date.
ECHO 06/2025: 1. Normal biventricular size and function without regional wall motion abnormalities.
2. LVEF is 55-60% by visual estimation. Mild concentric LVH.
3. Mild to moderate tricuspid regurgitation.
4. Moderately elevated estimated PASP at 51 mmHg.
5. Compared to prior from September 16, 2024, no significant change.
Robotic Bronchoscopy 06/2025: RUL mass. Pathology nondiagnostic.
PET-CT 06/2025: Multiple pulmonary lesions as described, 2 of which demonstrate slightly elevated standard uptake values of 3 and 3.3, remaining relatively stable/without significant increase on dual time point imaging. However, also without
significant decrease in the SUV on delayed imaging. Such findings are equivocal for neoplasm, given that such findings may also be seen with inflammation. Anatomically, the degree of surrounding interstitial and groundglass opacity associated with
the right upper lobe lesion appears to have improved slightly. The left upper lobe lesion appears smaller in size, more localized and slightly increased in density compared to prior examination.
Further evaluation may be considered with with CT-guided biopsy, or a more conservative route may include continued surveillance with short-term follow-up imaging.
1.5 cm focus of FDG activity along the left posterolateral rectal margin. Although likely physiologic, recommend correlation with physical examination/digital rectal examination.
Subjective Data
-
Date of Service:
Date of Service: July 21, 2025
Subjective:
Comfortably sitting in chair in no acute distress. Other than local pain, no new symptoms reported
Review of Systems
Genitourinary: Other (All 14 systems reviewed and negative except as stated above in the history of present illness.)
Objective Data
Data Reviewed
Vital Signs / I&O / Oxygen:
Vital Signs
Temp Pulse Resp BP Pulse Ox
97.8 F 80 12 140/99 93
07/21/25 11:41 07/21/25 11:41 07/21/25 11:41 07/21/25 11:41 07/21/25 07:28
Intake and Output
07/20/25 07/21/25 07/22/25
06:59 06:59 06:59
Intake Total 50 / 50
Output Total 510 / 510 676 / 676
Balance -460 / -460 -676 / -676
SaO2 93
Nasal Cannula flow liters per 2
minute
Physical Exam
General: Comfortable
HEENT: Normocephalic
Cardiovascular: S1-S2
Respiratory: Clear
GI: Soft and Non Distended
Neurology: Awake and Alert
Skin: Warm
Labs/Micro/Reports
Lab Data
07/21/25 04:46
07/21/25 04:46
Microbiology
07/19/25 07:00 Urine Urine Culture - Preliminary
Escherichia coli
--- NOTE | 2025-07-21 13:04 | W.DCSUMMARY ---
Discharge Summary
Discharge Data
Date of Admission: 07/19/25
Date of Discharge: 07/21/25
-
Pending Results: No
Hospital Course
Primary care physician: Mary Clayton
Outpatient classified copy control clerk: Junior Amaral
Inpatient consultants: Pulmonary medicine
Procedures:
1. Robotic assisted thoracic surgery (RATS), right upper lobectomy, radical lymphadenectomy
Primary Diagnosis:
1. Right upper lobe ground glass opacity with solid component
Secondary Diagnoses:
1. Hypertension
2. Diabetes
3. Hyperlipidemia
4. Hypothyroidism
5. Raynaud's disease
6. Depression/anxiety
7. PE and DVT
8. Exposure to asbestos
9. Shingles
10. Class I obesity (BMI 33.7)
-Acute postop hyperkalemia, 5.2
-Acute postop E.Coli UTI
HPI: 64-year-old female was electively admitted on 07/19/2025 for right upper lobe lobectomy due to 1.9 cm pulmonary nodule.
Hospital course: Patient taken to the operating room and underwent a robot-assisted right upper lobe lobectomy with radical lymph node dissection by Dr. Sunny Argueta. For further details please see operative note. Pathology was negative for
malignancy therefore heparin SC was not prescribed. Patient was bradycardic and Cardizem and beta-ant were placed on hold. Initial chest x-ray reported right pneumoperitoneum which is stable. On postoperative day 1, chest tube was placed to
water seal and repeat chest x-ray at 12 noon remained stable. Right pleural chest tube was removed with follow-up chest x-ray at 1630 reporting a less than 10% pneumothorax. On postoperative day #2, chest x-ray reported small right apical
pneumothorax which was unchanged. Pain was controlled with multimodal therapy including Motrin, gabapentin, oxycodone, and Flexeril. Urine culture reported E. coli and Macrodantin 100 mg twice daily was initiated for 5 days. Patient ambulated in
halls without difficulty and is deemed stable for discharge to home. Patient will have follow-up chest x-ray in 1 week.
Home medication changes:
Pain meds: Oxycodone, gabapentin, Flexeril, Motrin
Discharge Plan
-
Patient Disposition: Home (Routine Discharge)
Discharge Diagnosis/Procedures: Right upper lobectomy with lymph node dissection
Condition: Good
Diet: 2 Gram Sodium
Activity: No strenuous activity
Driving Restrictions: No driving for 2 weeks
Bathing Restrictions: OK to Shower
Others Tests: CXR in 1 week
Specialty Instructions: Weigh Daily- Call MD for wt gain/loss 3 lbs overnight/5 lbs in 1 week
Referrals:
CT Transitional Care Nurse [Outside]
Mary Clayton CRNP [Family Provider, Family Practice]
Trae Amaral MD [Active, Pulmonary Medicine] - in four to six weeks
Sunny Argueta MD [Active, Cardiac Surgery] - 08/02/25 2:00 pm
Prescriptions:
New
acetaminophen 325 mg Tablet
650 mg PO Q4HPRN PRN (Reason: mild pain,headache,temp >101F ) Qty: 0 0RF
cyclobenzaprine 10 mg Tablet
5 mg PO Q8HPRN PRN (Reason: muscle spasm) Qty: 20 0RF
gabapentin 100 mg Capsule
100 mg PO TID Qty: 30 0RF
nitrofurantoin monohyd/m-cryst 100 mg Capsule
100 mg PO BID Qty: 10 0RF
ibuprofen 400 mg Tablet
400 mg PO Q6HPRN PRN (Reason: post-op pain) Qty: 30 0RF
oxycodone 5 mg Tablet
2.5 mg PO Q4HPRN PRN (Reason: mild pain) Qty: 30 0RF
Continued
levothyroxine 175 mcg Tablet
175 mcg PO DAILY
oxybutynin chloride 15 mg Tablet Extended Release 24hr
15 mg PO HS
tramadol 50 mg Tablet
50 mg PO Q8H PRN (Reason: pain)
lisinopril 10 mg Tablet
20 mg PO DAILY
diltiazem HCl [Cartia XT] 120 mg Capsule,Extended Release 24hr
180 mg PO DAILY
Rx Instructions:
strength of capsule 180mg
montelukast [Singulair] 10 mg Tablet
10 mg PO DAILY
estradiol 0.01 % (0.1 mg/gram) Cream
1 g VAGINAL WEEKLY
Rx Instructions:
Q SATURDAY OR SATURDAY;
guaifenesin 100 mg/5 mL Liquid
200 mg PO Q4HPRN PRN (Reason: cough) Qty: 500 0RF
lisinopril 10 mg Tablet
10 mg PO HS
albuterol sulfate 90 mcg/actuation Hfa Aerosol Inhaler
2 puff INHALATION PRN PRN (Reason: SOB)
Patient Comments:
neb treatment done in SDS
metformin 500 mg Tablet
500 mg PO DAILY
Ozempic 1 mg/dose (4 mg/3 mL) Pen Injector
1 mg SC MEHTA
Trelegy Ellipta 100-62.5-25 mcg Blister With Device
1 inh INHALATION DAILY
losartan 25 mg Tablet
50 mg PO DAILY
Patient Comments:
Pt states they started taking 2 tablets (50 mg total) since 07/15/25.
Rx Instructions:
Losartan Potassium
Discharge Orders:
Discharge Patient (As Directed); Ordered 07/21/25
Ordered By: Neetu Aldana
Care Plan Goals
Care Plan Goals:
Problem: Readiness for enhanced knowledge related to diagnosis and treatment plan
Goal: Understand your diagnosis and treatment plan needs, including medications if applicable.
Instructions: Know your diagnosis, underlying causes and treatment plan options, including medications if applicable. Consult with your health care team to learn about your diagnosis and treatment plan, including medications if applicable.
Discharge Date and Time
Print Language: SYRIAN
[2025-07-21] MEDS: FLUZONE HIGH-DOSE 2025-26 0.5 ML IM (13:43)
--- NOTE | 2025-07-21 14:15 | PTCARENOTE ---
DC orders written. Patient dressed independently. Tele pack and PIV removed from patient. VSS. DC orders reviewed with patient, all questions answered. Patient left the hospital in stable condition with belongings via volunteer and wheelchair.
== END 2025-07-21 14:15 | disposition home or self-care (01) | DRG 164 ==
LOC: CVICU 04:53
PROVIDERS: Nurse Practitioner; ADMITTING PHYSICIAN Thoracic Surgery (Cardiothoracic Vascular Surgery); FAMILY PHYSICIAN Nurse Practitioner Family; OTHER PHYSICIAN Internal Medicine
PROC: 07B74ZX Excision of Thorax Lymphatic, Percutaneous Endoscopic Approach, Diagnostic (ICD-10-PCS; 2025-07-19)
PROC: 8E0W4CZ Robotic Assisted Procedure of Trunk Region, Percutaneous Endoscopic Approach (ICD-10-PCS; 2025-07-19)
PROC: 0BTC4ZZ Resection of Right Upper Lung Lobe, Percutaneous Endoscopic Approach (ICD-10-PCS; 2025-07-19)
PROC: 3E02340 Introduction of Influenza Vaccine into Muscle, Percutaneous Approach (ICD-10-PCS; 2025-07-21)
DX: R91.8 Other nonspecific abnormal finding of lung field (principal); J93.9 Pneumothorax, unspecified; N39.0 Urinary tract infection, site not specified; I10 Essential (primary) hypertension; E11.9 Type 2 diabetes mellitus without complications; E78.5 Hyperlipidemia, unspecified; E87.5 Hyperkalemia; B96.20 Unspecified Escherichia coli [E. coli] as the cause of diseases classified elsewhere; R00.1 Bradycardia, unspecified; E03.9 Hypothyroidism, unspecified; I73.00 Raynaud's syndrome without gangrene; F32.A Depression, unspecified; F41.9 Anxiety disorder, unspecified; Z77.090 Contact with and (suspected) exposure to asbestos; N32.81 Overactive bladder; J45.20 Mild intermittent asthma, uncomplicated; G47.33 Obstructive sleep apnea (adult) (pediatric); I27.20 Pulmonary hypertension, unspecified; E66.811 Obesity, class 1; Z68.33 Body mass index [BMI] 33.0-33.9, adult; Z23 Encounter for immunization; Z86.711 Personal history of pulmonary embolism; Z86.718 Personal history of other venous thrombosis and embolism
CPT/HCPCS: 32505; 36415; 71045; 71046; 80048; 80053; 81003; 81015; 82248; 82962; 83036; 83735; 84132; 85025; 85027; 85610; 86803; 86850; 86900; 86901; 86920; 87070; 87086; 87088; 87186; 88305; 88309; 88331; 90662; 93005; 94640; G0008

== ENCOUNTER → 2025-08-02 12:48 | Outpatient (REF) | payer OTHER, SELFPAY | LOC: RAD 12:48 | PROVIDERS: ATTENDING PHYSICIAN Thoracic Surgery (Cardiothoracic Vascular Surgery); CONSULT PHYSICIAN Radiology Vascular & Interventional Radiology; FAMILY PHYSICIAN Nurse Practitioner Family | DX: J90 Pleural effusion, not elsewhere classified (principal) | CPT/HCPCS: 71046 ==

== ENCOUNTER 2025-08-02 23:15 | Observation (INO) | payer OTHER, SELFPAY ==
[2025-08-02] VITALS (8 sets, daily range): BP systolic 100–148; BP diastolic 69–105; BMI 34.5
[2025-08-02 17:13] LABS: Hematocrit 40.9 % (37.0-47.0); Hemoglobin 13.3 g/dL (12.0-16.0); Mean Corp Hgb Conc. 32.5 g/dL (33.0-37.0); Mean Corpuscular Volume 108.2 fL (81.0-99.0); Nucleated Red Blood Cells % 0 %; Platelet Count 349 10^3/uL (130-400); Red Cell Dist. Width 14.0 % (11.5-14.5)
[2025-08-02 17:35] LABS: APTT 26.7 Sec (23.4-35.0)
[2025-08-02 17:36] LABS: Troponin I < 0.012 ng/ml
[2025-08-02 17:39] LABS: ALT (SGPT) 14 U/L (0-35); AST (SGOT) 26 U/L (14-36); Albumin 4.2 g/dl (3.5-5.0); Alkaline Phosphatase 91 U/L (38-126); Blood Urea Nitrogen 15 mg/dl (7-17); Calcium 9.0 mg/dl (8.4-10.2); Carbon Dioxide 24 mmol/L (22-30); Chloride 105 mmol/L (98-107); Estimated Creatinine Clearance 80 ml/min; Glucose 107 mg/dl (70-99); Potassium 4.5 mmol/L (3.5-5.1); Sodium 137 mmol/L (135-145); Total Protein 6.9 g/dl (6.3-8.2); eGFR > 60.00
[2025-08-02 18:13] LABS: COVID-19 Antigen Negative (Negative)
--- NOTE | 2025-08-02 18:54 | ED.GENMED ---
History of Present Illness
<Kathi Meehan PA-C - Last Filed: 08/02/25 23:33>
General
Chief Complaint: Breathing Problem
Time Seen by Provider: 08/02/25 16:33
History of Present Illness
History of Present Illness:
SEE mdm
Phy Exam
<Kathi Meehan PA-C - Last Filed: 08/02/25 23:33>
Physical Exam
Physical Exam:
SEE mdm
Scores
<Kathi Meehan PA-C - Last Filed: 08/02/25 23:33>
Heart Failure Risk
Heart Failure Risk Score: Not Applicable
Course
<Kathi Meehan PA-C - Last Filed: 08/02/25 23:33>
Orders/Labs/Results
Orders:
Orders
08/02/25 14:45
EKG [Electrocardiogram (*1)] Urgent
Reason for Study: Shortness of Breath
EKG- Treatment ONCE
08/02/25 16:50
CT Chest PE Study Urgent
Comment:
Reason For Exam: s/p lobectomy, more SOB, h/o PE
08/02/25 17:03
Complete Blood Count/With Diff Urgent
Comprehensive Metabolic Panel Urgent
NT-proBNP Urgent
Comment: ADD ON
PTT Urgent
Troponin I Urgent
08/02/25 17:12
COVID-19 Antigen Urgent
Source: Nasal Swab
Influenza A+B Rapid Molecular Urgent
MILADIS Source: Nasal Swab
Specimen Description:
08/02/25 17:52
Add On- LAB Urgent
Tests Added?: bnp
08/02/25 20:37
Furosemide [Lasix] 20 mg IV NOW STA
08/02/25 22:58
Bedside Glucose Monitoring-ONCE As Directed
Comment: upon arrival to ICU
Bladder Scan As Directed
Follow Bladder Retention/Intermittent Cath Algorithm?: Yes
Frequency: Per Retention Algorithm
Comment: as per intermittent urinary catheter algorithm
Bladder Scan As Directed
Follow Bladder Retention/Intermittent Cath Algorithm?: Yes
PRN if no void in __ hours: 6
Frequency: Per Retention Algorithm
If Bladder Scan Result >: 400
then:: Straight cath
Intake/ Output As Directed
Frequency: Per unit guidelines
Notify MD As Directed
Notify physician if: while in ICU level of care:
glucose greater than or equal to 180 mg/dL once, contact provider to initiate Critical
Care Glycemic Protocol Target Range 140-180 mg/dL.
Straight Cath As Directed
Frequency: Per Retention Algorithm
Additional Instructions: as per intermittent urinary catheter algorithm
Straight Cath As Directed
Frequency: Per Retention Algorithm
Additional Instructions: straight cath as needed per acute urinary retention algorithm for 24 hrs
Additional Instructions: for bladder scan greater than 400 mL
Vital Signs As Directed
Frequency: Per unit guidelines
Weight As Directed
Frequency: Daily
Pulse Ox/spot Check [RESP] Routine
Quantity: 1
08/02/25 23:00
VTE Contraindication Routine
VTE Mechanical Device Contraindication: Surgical Contraindication
Pharmocologic Contraindication: Medical Contraindication
08/02/25 23:02
Admit Patient As Directed
Co-Sign Provider:
Level of Care: Observation services
Assign to:: CVICU
Physician / Group: CT Surgery/Dr. Aguirre
Diagnosis: Moderate to large right pleural effusion
Reason for Hospitalization: Right thoracentesis
Expected length of stay greater than two midnights?: No
I certify the patient meets the requirements for IP care: Yes
08/02/25 23:03
PRN Pain Medication Management As Directed
May give lesser potent ordered pain med per pt: Yes
preference::
Protocol:: Medication orders for pain may be administered in a
manner that supports deferring to patient preference
when the pt is:
- Requesting an ordered lesser potent pain medication.
Least to most potent pain medications are defined
as: acetaminophen < NSAID < tramadol < opioids
(morphine, oxycodone, hydromorphone).
- Requesting a lesser dose of the same medication IF
ORDERED.
- Requesting a less intrusive route of administration
if both routes are prescribed by the provider (PO <
IV).
08/02/25 23:04
Albuterol [ProAIR HFA INHALER] 2 puff INH R Q6HPRN PRN SOB
Guaifenesin Solution [Robitussin] 200 mg PO Q4HPRN PRN cough
Oxycodone [Roxicodone] 5 mg PO Q4HPRN PRN mild pain
08/02/25 23:07
Dextrose 50%-Water [Dextrose 50% Syringe] 12.5 grams IV [id number] PRN
Glucagon [GlucaGen] 1 mg IM PRN PRN
Accucheck [Bedside Glucose Monitoring] As Directed
Frequency: AC&HS
08/02/25 23:08
Bedside Glucose Monitoring As Directed
Frequency: AC&HS
Additional Instructions:: Change to q6h if pt on TPN, tube feeding or not eating
08/02/25 23:11
IRAD CONSULT Routine
Consulting Provider: Perry Richey
Was physician already notified: Yes
Procedure being ordered, including laterality if applicable: Right thoracentesis
Acknowledgement that appropriate orders are entered: Yes
08/02/25 23:20
Cyclobenzaprine HCl [Flexeril] 5 mg PO Q8HPRN PRN muscle spasm
08/03/25 02:43
BMP [Basic Metabolic Panel] IN AM
CBC/No Diff [Complete Blood Count/No Diff] IN AM
Magnesium IN AM
08/03/25 Breakfast
NPO
Allow oral meds: Yes
Allow clear liquids: Sips of Clears
Comment: right thoracentesis
Levothyroxine [Synthroid] 175 mcg PO DAILY@0600
08/03/25 07:30
Insulin Aspart Corrective Mod [Novolog Flexpen-Moderate Resistance] See Protocol SC AC
08/03/25 08:00
Gabapentin [Neurontin] 100 mg PO TID
Lisinopril [Zestril] 20 mg PO DAILY
Losartan [Cozaar] 50 mg PO DAILY
METFORMIN HCl [Glucophage] 500 mg PO DAILY
Montelukast Sodium [Singulair] 10 mg PO DAILY
[id number]-bsobfghkd-komcddvg [Trelegy Ellipta] 1 inh INH R DAILY
08/03/25 18:00
Diltiazem Extended Release [Cardizem Cd] 180 mg PO QPM
08/03/25 22:00
Lisinopril [Zestril] 10 mg PO HS
Oxybutynin Chloride [Ditropan] 5 mg PO TID
Abnormal Lab Results
08/02/25
17:03
RBC 3.78 L 10^6/uL
(4.20-5.40)
MCV 108.2 H fL
(81.0-99.0)
MCH 35.2 H pg
(27.0-31.0)
MCHC 32.5 L g/dL
(33.0-37.0)
Absolute Eos (auto) 0.8 H 10^3/uL
(0-0.7)
Eosinophils % 7.8 H %
(0-6)
Glucose 107 H mg/dl
(70-99)
08/02/25 17:03
08/02/25 17:03
Vital Signs
Initial and Last Documented VS:
Initial Vital Signs
Temp Pulse Resp BP Pulse Ox
98.8 F 84 16 135/95 97
08/02/25 14:40 08/02/25 14:40 08/02/25 14:40 08/02/25 14:40 08/02/25 14:40
Last Documented Vital Signs
Temp Pulse Resp BP Pulse Ox
97.9 F 84 20 109/83 91
08/04/25 10:48 08/04/25 11:00 08/04/25 10:48 08/04/25 10:47 08/04/25 10:48
<Akash Puckett MD - Last Filed: 08/04/25 11:47>
Orders/Labs/Results
Orders:
Orders
08/02/25 14:45
EKG [Electrocardiogram (*1)] Urgent
Reason for Study: Shortness of Breath
EKG- Treatment ONCE
08/02/25 16:50
CT Chest PE Study Urgent
Comment:
Reason For Exam: s/p lobectomy, more SOB, h/o PE
08/02/25 17:03
Complete Blood Count/With Diff Urgent
Comprehensive Metabolic Panel Urgent
NT-proBNP Urgent
Comment: ADD ON
PTT Urgent
Troponin I Urgent
08/02/25 17:12
COVID-19 Antigen Urgent
Source: Nasal Swab
Influenza A+B Rapid Molecular Urgent
MILADIS Source: Nasal Swab
Specimen Description:
08/02/25 17:52
Add On- LAB Urgent
Tests Added?: bnp
08/02/25 20:37
Furosemide [Lasix] 20 mg IV NOW STA
08/02/25 22:58
Bedside Glucose Monitoring-ONCE As Directed
Comment: upon arrival to ICU
Bladder Scan As Directed
Follow Bladder Retention/Intermittent Cath Algorithm?: Yes
Frequency: Per Retention Algorithm
Comment: as per intermittent urinary catheter algorithm
Bladder Scan As Directed
Follow Bladder Retention/Intermittent Cath Algorithm?: Yes
PRN if no void in __ hours: 6
Frequency: Per Retention Algorithm
If Bladder Scan Result >: 400
then:: Straight cath
Intake/ Output As Directed
Frequency: Per unit guidelines
Notify MD As Directed
Notify physician if: while in ICU level of care:
glucose greater than or equal to 180 mg/dL once, contact provider to initiate Critical
Care Glycemic Protocol Target Range 140-180 mg/dL.
Straight Cath As Directed
Frequency: Per Retention Algorithm
Additional Instructions: as per intermittent urinary catheter algorithm
Straight Cath As Directed
Frequency: Per Retention Algorithm
Additional Instructions: straight cath as needed per acute urinary retention algorithm for 24 hrs
Additional Instructions: for bladder scan greater than 400 mL
Vital Signs As Directed
Frequency: Per unit guidelines
Weight As Directed
Frequency: Daily
Pulse Ox/spot Check [RESP] Routine
Quantity: 1
08/02/25 23:00
VTE Contraindication Routine
VTE Mechanical Device Contraindication: Surgical Contraindication
Pharmocologic Contraindication: Medical Contraindication
08/02/25 23:02
Admit Patient As Directed
Co-Sign Provider:
Level of Care: Observation services
Assign to:: CVICU
Physician / Group: CT Surgery/Dr. Aguirre
Diagnosis: Moderate to large right pleural effusion
Reason for Hospitalization: Right thoracentesis
Expected length of stay greater than two midnights?: No
I certify the patient meets the requirements for IP care: Yes
08/02/25 23:03
PRN Pain Medication Management As Directed
May give lesser potent ordered pain med per pt: Yes
preference::
Protocol:: Medication orders for pain may be administered in a
manner that supports deferring to patient preference
when the pt is:
- Requesting an ordered lesser potent pain medication.
Least to most potent pain medications are defined
as: acetaminophen < NSAID < tramadol < opioids
(morphine, oxycodone, hydromorphone).
- Requesting a lesser dose of the same medication IF
ORDERED.
- Requesting a less intrusive route of administration
if both routes are prescribed by the provider (PO <
IV).
08/02/25 23:04
Albuterol [ProAIR HFA INHALER] 2 puff INH R Q6HPRN PRN SOB
Guaifenesin Solution [Robitussin] 200 mg PO Q4HPRN PRN cough
Oxycodone [Roxicodone] 5 mg PO Q4HPRN PRN mild pain
08/02/25 23:07
Dextrose 50%-Water [Dextrose 50% Syringe] 12.5 grams IV [id number] PRN
Glucagon [GlucaGen] 1 mg IM PRN PRN
Accucheck [Bedside Glucose Monitoring] As Directed
Frequency: AC&HS
08/02/25 23:08
Bedside Glucose Monitoring As Directed
Frequency: AC&HS
Additional Instructions:: Change to q6h if pt on TPN, tube feeding or not eating
08/02/25 23:11
IRAD CONSULT Routine
Consulting Provider: Perry Richey
Was physician already notified: Yes
Procedure being ordered, including laterality if applicable: Right thoracentesis
Acknowledgement that appropriate orders are entered: Yes
08/02/25 23:20
Cyclobenzaprine HCl [Flexeril] 5 mg PO Q8HPRN PRN muscle spasm
08/03/25 02:43
BMP [Basic Metabolic Panel] IN AM
CBC/No Diff [Complete Blood Count/No Diff] IN AM
Magnesium IN AM
08/03/25 Breakfast
NPO
Allow oral meds: Yes
Allow clear liquids: Sips of Clears
Comment: right thoracentesis
Levothyroxine [Synthroid] 175 mcg PO DAILY@0600
08/03/25 07:30
Insulin Aspart Corrective Mod [Novolog Flexpen-Moderate Resistance] See Protocol SC AC
08/03/25 08:00
Gabapentin [Neurontin] 100 mg PO TID
Lisinopril [Zestril] 20 mg PO DAILY
Losartan [Cozaar] 50 mg PO DAILY
METFORMIN HCl [Glucophage] 500 mg PO DAILY
Montelukast Sodium [Singulair] 10 mg PO DAILY
xlunwikuoye-kwdeyqbfp-gnyoypqk [Trelegy Ellipta] 1 inh INH R DAILY
08/03/25 18:00
Diltiazem Extended Release [Cardizem Cd] 180 mg PO QPM
08/03/25 22:00
Lisinopril [Zestril] 10 mg PO HS
Oxybutynin Chloride [Ditropan] 5 mg PO TID
Abnormal Lab Results
08/02/25
17:03
RBC 3.78 L 10^6/uL
(4.20-5.40)
MCV 108.2 H fL
(81.0-99.0)
MCH 35.2 H pg
(27.0-31.0)
MCHC 32.5 L g/dL
(33.0-37.0)
Absolute Eos (auto) 0.8 H 10^3/uL
(0-0.7)
Eosinophils % 7.8 H %
(0-6)
Glucose 107 H mg/dl
(70-99)
08/02/25 17:03
08/02/25 17:03
Vital Signs
Initial and Last Documented VS:
Initial Vital Signs
Temp Pulse Resp BP Pulse Ox
98.8 F 84 16 135/95 97
08/02/25 14:40 08/02/25 14:40 08/02/25 14:40 08/02/25 14:40 08/02/25 14:40
Last Documented Vital Signs
Temp Pulse Resp BP Pulse Ox
97.9 F 84 20 109/83 91
08/04/25 10:48 08/04/25 11:00 08/04/25 10:48 08/04/25 10:47 08/04/25 10:48
<Kathi Meehan PA-C - Last Filed: 08/02/25 23:33>
MDM/Problems Addressed
Differential Diagnosis Includes:
see MDM
MDM/Problems Addressed:
Note:
CHIEF COMPLAINT(S)
Worsening shortness of breath following recent lung surgery.
HISTORY OF PRESENT ILLNESS
The patient is a 65-year-old female who presents with worsening shortness of breath following a lobectomy conducted two weeks ago. The patient reports that her shortness of breath has gradually worsened since the surgery, culminating in episodes
over the weekend and the previous night where she felt unable to breathe, similar to a prior episode of pulmonary embolism experienced last July. During these episodes, the patient used her inhaler, which provided minimal relief, with each
episode lasting approximately 30 minutes.
The patient has a history of a deep vein thrombosis in the leg, which led to the previous pulmonary embolism. There is a noted presence of fluid in the lungs, but a previously detected pulmonary nodule measured at 1.9 cm was confirmed as
non-malignant following lobectomy. The nodule excision was sparked by suspicion of malignancy due to the nodules presence.
The patient stopped anticoagulation therapy in February. She denies current anticoagulation and provides a history of worsened shortness of breath upon exertion post-surgery. She has no current cardiac history of heart attack but has an upcoming
cardiology appointment in September.
The patient experiences exertional dyspnea, particularly when climbing stairs, and questions the absence of rehabilitative support post-surgery after right upper lobe lobectomy. They have gained weight but have not been consistently monitoring it.
SOCIAL DETERMINANTS AFFECTING HEALTH
The patient reports non-adherence to daily weight monitoring as advised, likely due to lack of clear instructions or routine implementation post-discharge. Housing, financial, and other social factors were not discussed.
ALLERGIES
None reported to iodine contrast or other substances mentioned.
REVIEW OF SYSTEMS
- Respiratory: Worsening shortness of breath, described as similar to episodes of pulmonary embolism.
- General: Denies fever or chills.
PHYSICAL EXAM
GENERAL: Alert , in no apparent distress
EYE: pupils equal and reactive
NECK: Supple
ENT: o/p clr, mmm.
CARDIAC: Regular rate and rhythm .
LUNGS: Diminished right lower lobe, occasional cough no acute respiratory distress, no wheezes/rales/rhonchi
ABDOMEN: Soft, without focal tenderness, no r/g, no cvat, normal bowel sounds
NEUROLOGICAL: Alert and oriented, no focal neuro deficits
SKIN: Warm and dry, skin intact.
MUSCULOSKELETAL: Mild edema, well perfused. neg kinga's sign
PSYCH: Normal and appropriate interaction.
PROBLEM LIST
Acute Problems:
- Worsening shortness of breath post-lobectomy
- Fluid on the lungs
Chronic Problems:
- History of deep vein thrombosis and pulmonary embolism
PLAN
The patient is to continue with planned imaging today to assess current lung status. The patient has a pre-scheduled cardiology appointment in September, which may address potential anticoagulation therapy.
DIFFERENTIAL DIAGNOSIS
The Differential Diagnosis includes, in no particular order and is not limited to:
- Post-surgical atelectasis
- Pulmonary embolism
- Pleural effusion
- Congestive heart failure
- Chronic obstructive pulmonary disease exacerbation
- Pneumonia
- Pulmonary fibrosis
- Acute bronchitis
- Respiratory muscle weakness
- Anxiety-induced hyperventilation
08/02/25 - 20:40
65 Y/O f
2 WEEKS POST R UPPER LOBECTOMY FOR NODULE
NONMALIGNANT
ASTORGA WORSENING
SAW CT SURGERY TODAY WHO SENT PT TO ED FOR FURHTER W/U
PT IS NOT REQUIRING O2
BUT SHE IS DYSPNEIC WITH WALKING
The patient has a moderate to large pleural effusion on the right side, confirmed via imaging. There is no evidence of a pulmonary embolism. Initiation of diuretic therapy (Lasix) via IV is planned to reduce fluid accumulation. If diuretics are
insufficient, a thoracentesis may be considered, with interventional radiology involved for accurate fluid drainage. The nature of the fluid will be assessed to determine if it is infectious, though it is suspected to be post-operative in nature.
The procedure, if needed, is expected to be performed under local anesthesia. The patient will remain in the hospital for observation and management overnight.
SPOKE WITH DR. AGUIRRE WHO ACCEPTED PT
JAYCE FROM CT SURGERY DID ORDERS
<Kathi Meehan PA-C - Last Filed: 08/02/25 23:33>
*Pulse Oximetry
SaO2: 97
Oxygen Mode of Delivery: Room air
Patient hypoxic: no (97)
*Critical Care Note
Total Time (30-74mins, 75-104mins- exclusive of procedures): Not Applicable
ED Attending Note
<Kathi Meehan PA-C - Last Filed: 08/02/25 23:33>
-
Portions of this chart may have been created with voice recognition software.� Occasional wrong word or��sound alike� substitutions may have occurred due to the inherent limitations of voice recognition software.
<Akash Puckett MD - Last Filed: 08/04/25 11:47>
ED Attending Note
Patient seen and examined by attending physician: Yes
ED Attending Note:
Patient status post right upper lobe lobectomy 2 weeks ago, subsequently requiring chest tube placement secondary to pneumoperitoneum, presents to ED secondary to worsening shortness of breath, especially with exertion since being discharged home.
Patient states that she feels as though she cannot get a full breath of air in when she breathes. Patient was evaluated as an outpatient with x-ray which revealed pleural effusion and was subsequently referred to ED for an evaluation, including
potentially obtaining CT chest to evaluate for pulmonary embolism, as patient has had history of previous PE. Denies chest pain. Denies chest palpitations. Denies fever or chills. Denies vomiting or diarrhea. Denies loss of appetite. Patient
reports increased leg swelling and approximately 5 pound weight gain over the past 10 days.
Physical Exam
General: mild respiratory distress, not acutely ill. afebrile
Head: nc/at. eomi
Neck: supple. no meningeal signs.
Heart: s1/s2 regular rate and rhythm
Lungs: no acute respiratory distress. clear bilaterally
Abdomen: normal bowel sounds. not tender.
Neuro: alert and oriented x 3. no focal neurological deficits
Skin: no rash
Psychiatric: well kept. interactive and cooperative
Extremities: no edema. no calf tenderness.
Outpatient chest x-ray reviewed, consistent with right pleural effusion. During short ambulation in ED, patient noted to become mildly tachypneic with respiratory distress, without desaturation.
CT PE study pending. Patient may require further treatment, including IV diuresis, due to her symptoms
Discharge Plan
Departure
Patient Disposition: Admit
Date of Disposition: 08/02/25
Time of Disposition: 20:48
Admit to: Telemetry
Admit to doctor: [email or web address]
Presentation/result/management discussed w/ accepting MD/DO: harmony
Condition: Fair
Covid-19: Not Applicable
Discharge Problem:
Pleural effusion
Interventions
Interventions:
*Risk Screen - Suicide Last Done: 08/03/25 00:00
*General Assessment Last Done: 08/02/25 16:47
*Neglect/Abuse Screening Last Done: 08/02/25 14:40
*ED- Fall Risk Assessment Last Done: 08/02/25 16:47
*ED COVID-19 Vaccine History Last Done: 08/02/25 16:47
*ED Influenza Vaccine History Last Done: 08/02/25 16:47
*Nursing Disposition Last Done: 08/03/25 00:15
ED- Cardiac Assessment Last Done: 08/02/25 16:47
ED- Pulmonary Assessment Last Done: 08/02/25 16:47
Discharge Date and Time
Discharge Date/Time: 08/03/25 00:16
[2025-08-02] MEDS: LASIX 20 MG IV (20:43)
[2025-08-03] VITALS (18 sets, daily range): BP systolic 82–162; BP diastolic 74–129; BMI 33.0
--- NOTE | 2025-08-03 | PTCARENOTE ---
report received from ED RN, pt admitted into room 2268. handoff completed in worklist. VS and weight obtained. admission questions and med rec done. pt AAOx4. c/o pain at incision sites from previous lobectomy. see MAR for PRN med administration.
VSS. NSR on monitor, HR 80s. +peripheral pulses. SBP 150s. scheduled lisinopril given per orders. heart tones clear. bilateral breath sounds present, significantly decreased lung sounds on the right side. occasional dry cough noted. ASTORGA and dyspnea
at rest present. pt placed on 2LNC. POX 93%. coughing/deep breathing encouraged. pt voids without difficulty. +BS. abdomen soft, nontender. L AC #20g PIV present and patent. skin CDI. old incision sites from lobectomy noted and stable, open to air.
pt made aware of NPO status for possible thoracentesis later today. see worklist for full assessment, VS, and interventions. pt resting comfortably w call light in reach.
[2025-08-03] MEDS: ROXICODONE 5 MG PO ×3 (00:20→20:39)
[2025-08-03] MEDS: FLEXERIL 5 MG PO ×2 (00:20→20:39)
[2025-08-03] MEDS: ZESTRIL 10 MG PO ×2 (00:30→22:30)
[2025-08-03] MEDS: MELATONIN 5 MG PO ×2 (00:30→22:45)
[2025-08-03 02:49] LABS: Hematocrit 38.6 % (37.0-47.0); Hemoglobin 13.0 g/dL (12.0-16.0); Mean Corp Hgb Conc. 33.7 g/dL (33.0-37.0); Mean Corpuscular Volume 104.6 fL (81.0-99.0); Platelet Count 355 10^3/uL (130-400); Red Cell Dist. Width 14.3 % (11.5-14.5)
[2025-08-03 03:11] LABS: Blood Urea Nitrogen 14 mg/dl (7-17); Calcium 9.2 mg/dl (8.4-10.2); Carbon Dioxide 25 mmol/L (22-30); Chloride 106 mmol/L (98-107); Estimated Creatinine Clearance 89 ml/min; Glucose 103 mg/dl (70-99); Magnesium 1.9 mg/dl (1.6-2.3); Potassium 4.1 mmol/L (3.5-5.1); Sodium 135 mmol/L (135-145); eGFR > 60.00
[2025-08-03] MEDS: CARDIZEM SR 60 MG PO (04:49)
[2025-08-03] MEDS: SYNTHROID 175 MCG PO (04:50)
--- NOTE | 2025-08-03 04:55 | PTCARENOTE ---
no acute changes in assessment. NSR 70s-80s. POX 94% on 2LNC. BP elevated this morning, SBP 160s, DBP 100s. CT PA aware - orders received for 1 time dose Cardizem 60mg. AM labs drawn and sent. pt resting between care.
[2025-08-03] MEDS: ZESTRIL 20 MG PO (06:28)
--- NOTE | 2025-08-03 06:30 | PTCARENOTE ---
pt continues to have elevated BP - 8AM dose Lisinopril given early per CT PA.
--- NOTE | 2025-08-03 06:35 | HPS.HSE ---
Family Physician
-
Family Physician: ROSEMARIE Guaman
Chief Complaint
-
SOB
History of Present Illness
Pleasant 65 y/o woman, who underwent RATS with Right upper Lobectomy/Radical Lymphadenectomy by Dr. Argueta on 07/19/25 and discharged home on 07/21/25. States progressive ASTORGA since discharge, but SOB was exacerbated yesterday 08/02/25 while in her
recliner. She had a f/u appointment to see Dr. Argueta yesterday and was directed to [facility] for further evaluation. She was noted to have a moderate to large right pleural effusion on chest CT. She is being admitted for a right thoracentesis by IR today.
Medical History
Past Medical History
Past Medical History: Reports Other
Additional Past Medical History:
1. Ground glass opacity with solid component right upper lobe
2. Hypertension
3. Diabetes
4. Hyperlipidemia
5. Hypothyroidism
6. Raynaud's disease
7. Depression/anxiety
8. PE and DVT
9. Exposure to asbestos
10. Shingles
11. Morbidly obese/class 1 (BMI 33.3)
Past Surgical History: Reports Other
Additional Past Surgical History:
-S/P RATS with Right upper Lobectomy/Radical Lymphadenectomy by Dr. Argueta on 07/19/25
Social History
Unable to obtain full social history at this time due to: Other
Tobacco: Non-smoker
Alcohol: Occasional
Drug: None
Personal:
Living: With Family
Employment: Retired
Family History
Family History: Not pertinent
Allergies / Home Medications
Allergies reflects when Allergies were last updated in [facility].
Home Medications with original date entered in [facility]
Allergy/Medication List:
-PNC (unknown allergic reaction)
-Sulfa (unknown allergic reaction)
Review of Systems
-
Unable to obtain full review of systems at this time due to: Other
Respiratory: Reports Trouble Breathing (SOB)
Physical Exam
Vital Signs
Vital Signs
Temp Pulse Resp BP Pulse Ox
98.6 F 82 20 146/102 94
08/03/25 00:00 08/03/25 06:28 08/03/25 00:00 08/03/25 06:28 08/03/25 03:00
Physical Exam
General: Well Developed, Well Nourished, Morbidly Obese and Other
HEENT: NormoCephalic
Respiratory: Decreased Breath Sounds (@ right base)
Cardiac: S1/S2 and Regular Rhythm
Breast: Deferred by me
GI: Soft, Non Distended and Normal Bowel Sounds
Rectal: Deferred by Provider
Genito-urinary: Deferred by me
Skin: Warm
Neuro: Awake, Alert, Oriented and AO x 3
Hematologic/Lymphatic: No Lymphadenopathy
Psych: Calm
Laboratory Results
-
08/03/25 02:43
08/03/25 02:43
Laboratory Results
APTT 26.7 Sec (23.4-35.0) 08/02/25 17:03
Total Bilirubin 0.7 mg/dl (0.2-1.3) 08/02/25 17:03
AST 26 U/L (14-36) 08/02/25 17:03
ALT 14 U/L (0-35) 08/02/25 17:03
Alkaline Phosphatase 91 U/L (38-126) 08/02/25 17:03
Troponin I < 0.012 ng/ml 08/02/25 17:03
Data Reviewed
-
Diagnostic Radiology: Image Personally Visualized and interpreted and Report Reviewed by me
CT Scan: Image Personally Visualized and interpreted and Report Reviewed by me
Lab Data: Labs Reviewed by me and Discussed with Physician
Impression/Plan
-
IMPRESSION:
Pleasant 65 y/o woman, who underwent RATS with Right upper Lobectomy/Radical Lymphadenectomy by Dr. Argueta on 07/19/25 and discharged home on 07/21/25. States progressive ASTORGA since discharge, but SOB was exacerbated yesterday 08/02/25 while in her
recliner. She had a f/u appointment to see Dr. Argueta yesterday and was directed to [facility] for further evaluation. She was noted to have a moderate to large right pleural effusion on chest CT. She is being admitted for a right thoracentesis by IR today.
-Moderate to large right pleural effusion
-Ground glass opacity with solid component right upper lobe
-Hypertension
-Diabetes
-Hyperlipidemia
-Hypothyroidism
-Raynaud's disease
-Depression/anxiety
-PE and DVT
-Exposure to asbestos
-Shingles
-Morbidly obese/class 1 (BMI 33.3)
-S/P RATS with Right upper Lobectomy/Radical Lymphadenectomy by Dr. Argueta on 07/19/25
PLAN:
-Right Thoracentesis by IR
-D/C home later today vs tomorrow
[2025-08-03] MEDS: SINGULAIR 10 MG PO (07:28)
[2025-08-03] MEDS: NEURONTIN 100 MG PO ×3 (07:28→22:29)
[2025-08-03] MEDS: COZAAR 50 MG PO (07:28)
[2025-08-03] MEDS: GLUCOPHAGE PO (07:28)
[2025-08-03 07:34] LABS: Glucose - Point of Care 92 mg/dl (70-99)
[2025-08-03] MEDS: SPIRIVA RESPIMAT 2.5 MCG INH (07:51)
[2025-08-03] MEDS: SYMBICORT 80/4.5 MCG INHALER INH (07:51)
[2025-08-03] MEDS: LASIX 40 MG PO (10:31)
[2025-08-03] MEDS: GLUCOPHAGE 500 MG PO (10:31)
--- NOTE | 2025-08-03 10:38 | PTCARENOTE ---
Pt returned from [facility] s/p thoracentesis. 900mL fluid removed from R lung. Pt notes breathing feels easier after procedure. C/o pain R ribs at recent surgical site - pain medication given.
[2025-08-03 12:25] LABS: Glucose - Point of Care 111 mg/dl (70-99)
[2025-08-03 17:26] LABS: Glucose - Point of Care 104 mg/dl (70-99)
[2025-08-03] MEDS: CARDIZEM CD 180 MG PO (17:29)
[2025-08-03] MEDS: SYMBICORT 80/4.5 MCG INHALER 2 PUFF INH (19:40)
--- NOTE | 2025-08-03 20:21 | PTCARENOTE ---
VS saved from previous shift by this RN.
[2025-08-03] MEDS: KCL 10 MEQ PO (20:25)
--- NOTE | 2025-08-03 21:00 | PTCARENOTE ---
pt transferred to IVU room 2242.
[2025-08-03 22:21] LABS: Glucose - Point of Care 115 mg/dl (70-99)
[2025-08-03] MEDS: DITROPAN 5 MG PO (22:30)
--- NOTE | 2025-08-03 23:25 | PTCARENOTE ---
Rec'd pt. from CVICU into room 2242 AAOx3, VSS, NSR on the monitor. Pt. independent with ambulation. No complaint of pain or SOB, right back thoracentesis site CDI, right lung diminished, RA pulse ox 94%. Pt. resting quietly.
[2025-08-04 03:15] VITALS: BP 125/83
--- NOTE | 2025-08-04 05:05 | W.PN.CT ---
Today's Communication / Plan
-
Plan:
-No issues overnight
-No SOB following R thoracentesis with evacuation of 900 cc of clear gold pleural fluid, by IR 08/03/25
-Encourage use of IS
-F/U AM CXR
-OOB into chair/Ambulate
-D/C home
Assessment / Plan
-
Assessment:
-Moderate to large right pleural effusion S/P R thoracentesis with evacuation of 900 cc of clear gold pleural fluid, by IR 08/03/25
-Ground glass opacity with solid component right upper lobe
-Hypertension
-Diabetes
-Hyperlipidemia
-Hypothyroidism
-Raynaud's disease
-Depression/anxiety
-PE and DVT
-Exposure to asbestos
-Shingles
-Morbidly obese/class 1 (BMI 33.3)
-S/P RATS with Right upper Lobectomy/Radical Lymphadenectomy by Dr. Argueta on 07/19/25
Discussed patient care with: Cardiology, Nursing, Respiratory Therapy, Pharmacy and Care Team
Subjective
-
Date of Service: August 04, 2025
No issues overnight, states breathing has improved following right thoracentesis, denies SOB
Objective Data
-
Lab Results
08/03/25 02:43
08/03/25 02:43
APTT 26.7 Sec (23.4-35.0) 08/02/25 17:03
Vital Signs
Vital Signs
Temp Pulse Resp BP Pulse Ox
97.8 F 85 18 125/83 92
08/04/25 03:15 08/04/25 04:00 08/04/25 03:15 08/04/25 03:15 08/04/25 03:15
CT Intake/Output/Weight
08/03/25 08/03/25 08/04/25
06:59 18:59 06:59
Intake Total 240 / 720 480 / 720
Output Total 400 / 400 150 / 150
Balance -400 / -400 90 / 570 480 / 570
SaO2: 92 (RA)
Physical Exam
-
General: Awake, Oriented and AOx3
Cardiovascular: Regular rate & rhythm, No Murmurs, No Rub and No Gallop
Respiratory: Decreased Breath Sounds (right base, otherwise clear)
Incision: Clean, Dry, Intact and Dressing Intact
Extremities: Other (+trace edema)
Data Reviewed
-
Lab Results: Results Reviewed
Medications: Active Meds Reviewed
Chest X-Ray: Report Reviewed and Image Reviewed
CT Scan: Report Reviewed and Image Reviewed
ECG: Report Reviewed and Image Reviewed
[2025-08-04] MEDS: SYNTHROID 175 MCG PO (05:39)
[2025-08-04 06:00] VITALS: BMI 32.1
[2025-08-04 07:05] VITALS: BP 106/88
[2025-08-04] MEDS: SPIRIVA RESPIMAT 2.5 MCG 2 PUFF INH (07:42)
[2025-08-04] MEDS: KCL 10 MEQ PO (07:42)
[2025-08-04] MEDS: DITROPAN 5 MG PO (07:42)
[2025-08-04] MEDS: ROXICODONE 5 MG PO ×2 (07:43→11:42)
[2025-08-04] MEDS: NEURONTIN 100 MG PO (07:43)
[2025-08-04] MEDS: SYMBICORT 80/4.5 MCG INHALER 2 PUFF INH (07:43)
[2025-08-04] MEDS: GLUCOPHAGE 500 MG PO (07:43)
[2025-08-04] MEDS: SINGULAIR 10 MG PO (07:44)
[2025-08-04] MEDS: COZAAR 50 MG PO (07:44)
[2025-08-04] MEDS: ZESTRIL 20 MG PO (07:44)
[2025-08-04] MEDS: LASIX 40 MG PO (07:44)
[2025-08-04 07:47] LABS: Glucose - Point of Care 98 mg/dl (70-99)
[2025-08-04] MEDS: FLUSH (NSS) 1 FLUSH IV (07:47)
--- NOTE | 2025-08-04 08:28 | W.DCSUMMARY ---
Discharge Summary
Discharge Data
Date of Admission: 08/02/25
Date of Discharge: 08/04/25
Total time spent discharging patient (in min): 45
-
Pending Results: No
Hospital Course
Primary care physician: Mary Clayton
Outpatient chip bin operator: Junior Amaral
Inpatient consultants: interventional radiology
Procedures:
1. Ultrasound-guided thoracentesis, Right.
Primary Diagnosis:
1. Right pleural effusion, shortness of breath
Secondary Diagnoses:
1. Robotic assisted thoracic surgery (RATS), right upper lobectomy, radical lymphadenectomy
2. Diabetes
3. Hyperlipidemia
4. Hypothyroidism
5. Raynaud's disease
6. Depression/anxiety
7. PE and DVT
8. Exposure to asbestos
9. Shingles
10. Class I obesity (BMI 33.7)
11. Hypertension
HPI: 65 y/o woman, who underwent RATS with Right upper Lobectomy/Radical Lymphadenectomy by Dr. Argueta on 07/19/25 and discharged home on 07/21/25. States progressive ASTORGA since discharge, but SOB was exacerbated yesterday 08/02/25 while in her
recliner.
Hospital course: Patient was admitted on 08/03 with complaints of shortness of breath. Chest x-ray showed a moderate to large right pleural effusion. She was taken to interventional radiology on 08/03 for a right thoracentesis which drained 900
mL of serous fluid. She was also given 40 mg of p.o. Lasix with adequate urine output. On 08/04, patient reported improved symptoms and she was deemed stable for discharge home with a 5 days course of Lasix. Patient was also complaining of UTI
symptoms and was sent home with a 1 week course of Macrobid.
Home medication changes:
see below
Discharge Plan
-
Patient Disposition: Home (Routine Discharge)
Discharge Diagnosis/Procedures: Thoracentesis
Condition: Good
Diet: Regular
Activity: No strenuous activity
Driving Restrictions: As prior to admission
Bathing Restrictions: OK to Shower
Blood Work: BMP in 5 days (script was sent to [place] outpatient lab)
Others Tests: Our office will contact you about a follow up CXR
Referrals:
Mary Clayton CRNP [Family Provider, Family Practice]
Prescriptions:
New
furosemide 40 mg Tablet
40 mg PO DAILY Qty: 5 0RF
nitrofurantoin macrocrystal 100 mg capsule
100 mg PO BID Qty: 14 0RF
Continued
levothyroxine 175 mcg Tablet
175 mcg PO DAILY
oxybutynin chloride 15 mg Tablet Extended Release 24hr
15 mg PO HS
lisinopril 10 mg Tablet
20 mg PO DAILY
diltiazem HCl [Cartia XT] 120 mg Capsule,Extended Release 24hr
180 mg PO QPM
montelukast [Singulair] 10 mg Tablet
10 mg PO DAILY
guaifenesin 100 mg/5 mL Liquid
200 mg PO Q4HPRN PRN (Reason: cough) Qty: 500 0RF
lisinopril 10 mg Tablet
10 mg PO HS
albuterol sulfate 90 mcg/actuation Hfa Aerosol Inhaler
2 puff INHALATION R Q6HPRN PRN (Reason: SOB)
metformin 500 mg Tablet
500 mg PO DAILY
Trelegy Ellipta 100-62.5-25 mcg Blister With Device
1 inh INHALATION R DAILY
cyclobenzaprine 10 mg Tablet
5 mg PO Q8HPRN PRN (Reason: muscle spasm) Qty: 20 0RF
losartan 50 mg Tablet
50 mg PO DAILY
ibuprofen 400 mg tablet
400 mg PO Q6HPRN PRN (Reason: mild pain)
gabapentin 100 mg capsule
100 mg PO TID
melatonin 12 mg Tablet
12 mg PO HS
Changed
oxycodone 5 mg tablet
5 mg PO Q4HPRN PRN (Reason: mild pain) Qty: 10 0RF
Discharge Orders:
Discharge Patient (As Directed); Ordered 08/04/25
Ordered By: Kanwal Jerez
Care Plan Goals
Care Plan Goals:
Problem: Readiness for enhanced knowledge related to diagnosis and treatment plan
Goal: Understand your diagnosis and treatment plan needs, including medications if applicable.
Instructions: Know your diagnosis, underlying causes and treatment plan options, including medications if applicable. Consult with your health care team to learn about your diagnosis and treatment plan, including medications if applicable.
Discharge Date and Time
Print Language: RWANDAN
[2025-08-04] MEDS: DULCOLAX 10 MG PO (08:37)
[2025-08-04] MEDS: PEPCID 40 MG PO (09:01)
--- NOTE | 2025-08-04 09:15 | PTCARENOTE ---
Patient resting in bed this morning, medicated for right lateral back incisional pain with oxycodone with relief. Patient feels she might be getting a UTI, has them chronically- UA with reflex ordered and she is aware. After receiving her morning
meds with her breakfast, she complained of upper abdominal burning/stabbing type pain. Patient is constipated but doesn't feel it is from that but questioning if it could be the PO potassium she was given. TT to CT surgery STRATEGY DIRECTOR, patient given PO
pepcid and dulcolax tabs for constipation.
--- NOTE | 2025-08-04 10:06 | CM ---
Chart reviewed. Patient is independent of ADLS, lives with her in a [address], [facility], ambulates with a SPC. Plan is for the patient to return home. CM to follow
[2025-08-04 10:47] VITALS: BP 109/83
[2025-08-04] MEDS: MACROBID 100 MG PO (11:01)
[2025-08-04 11:33] LABS: Urine Character Clear (Clear)
[2025-08-04 11:44] LABS: Urine Urothelial Cell 0-2 /LPF (FEW)
[2025-08-04 11:45] LABS: Urine White Cell 40-50 /HPF (0-5)
--- NOTE | 2025-08-04 11:55 | PTCARENOTE ---
UA sent to the lab and patient given dose of macrodantin as ordered. OK for discharge, reviewed instructions including follow up appointments and new medications and she states her understanding. Patient discharged home with her .
== END 2025-08-04 11:56 | disposition home or self-care (01) ==
LOC: IVU 23:15
PROVIDERS: Clinical Nurse Specialist Acute Care; Physician Assistant; ADMITTING PHYSICIAN Thoracic Surgery (Cardiothoracic Vascular Surgery); ATTENDING PHYSICIAN Thoracic Surgery (Cardiothoracic Vascular Surgery); EMERGENCY PHYSICIAN Emergency Medicine; FAMILY PHYSICIAN Nurse Practitioner Family
DX: J90 Pleural effusion, not elsewhere classified (principal); R06.02 Shortness of breath; R91.1 Solitary pulmonary nodule; R06.09 Other forms of dyspnea; I10 Essential (primary) hypertension; E11.9 Type 2 diabetes mellitus without complications; E78.5 Hyperlipidemia, unspecified; E03.9 Hypothyroidism, unspecified; I27.21 Secondary pulmonary arterial hypertension; J94.8 Other specified pleural conditions; E66.811 Obesity, class 1; R94.31 Abnormal electrocardiogram [ECG] [EKG]; I73.00 Raynaud's syndrome without gangrene; F41.9 Anxiety disorder, unspecified; F32.A Depression, unspecified; Z68.33 Body mass index [BMI] 33.0-33.9, adult; Z86.718 Personal history of other venous thrombosis and embolism; Z90.2 Acquired absence of lung [part of]; Z86.711 Personal history of pulmonary embolism; Z79.899 Other long term (current) drug therapy; Z77.090 Contact with and (suspected) exposure to asbestos; Z11.52 Encounter for screening for COVID-19
CPT/HCPCS: 32555; 71045; 71275; 80048; 80053; 81003; 81015; 82962; 83735; 83880; 84484; 85025; 85027; 85730; 87077; 87086; 87186; 87502; 87811; 93005; 94640; 99285; G0378; Q9967

== ENCOUNTER 2025-08-11 12:59 | Observation (INO) | payer OTHER, SELFPAY ==
[2025-08-11] VITALS (14 sets, daily range): BP systolic 73–163; BP diastolic 76–110; BMI 33.1
--- NOTE | 2025-08-11 06:56 | ED.GENMED ---
History of Present Illness
<RUPINDER Campo Last Filed: 08/11/25 13:10>
General
Chief Complaint: Breathing Problem
Source: patient
Exam Limitations: none
Time Seen by Provider: 08/11/25 06:37
Nursing documentation reviewed up to this point in time: agreed with
History of Present Illness
History of Present Illness:
see MDM
Phy Exam
<RUPINDER Campo Last Filed: 08/11/25 13:10>
Physical Exam
Physical Exam:
GENERAL: Alert , in no apparent distress
EYE: pupils equal and reactive
NECK: Supple
ENT: o/p clr, mmm.
CARDIAC: Regular rate and rhythm .
LUNGS: Diminished right base, no acute respiratory distress, no wheezes/rales/rhonchi
ABDOMEN: Soft, without focal tenderness, no r/g, no cvat, normal bowel sounds
NEUROLOGICAL: Alert and oriented, no focal neuro deficits
SKIN: Warm and dry, skin intact.
MUSCULOSKELETAL: No edema, well perfused. neg kinga's sign
PSYCH: Normal and appropriate interaction.
Scores
<RUPINDER Campo Last Filed: 08/11/25 13:10>
Heart Failure Risk
Heart Failure Risk Score: Not Applicable
Course
<RUPINDER Campo Last Filed: 08/11/25 13:10>
Orders/Labs/Results
Orders:
Orders
08/11/25 06:40
CR Chest - 2 Views Urgent
Comment:
Reason For Exam: h/o pleural effusion
08/11/25 06:51
Electrocardiogram (*1) Urgent
Reason for Study: Shortness of Breath
EKG- Treatment ONCE
CR Abdomen - 2 Views Urgent
Reason For Exam: constipation
08/11/25 07:39
CT Chest PE Study Urgent
Comment:
Reason For Exam: sob
08/11/25 08:06
Complete Blood Count/With Diff Urgent
NT-proBNP Urgent
PTT Urgent
Prothrombin Time Urgent
Troponin I Urgent
08/11/25 09:22
Comprehensive Metabolic Panel Urgent
08/11/25 12:09
Admit/Transfer Patient As Directed
Co-Sign Provider:
Level of Care: Observation services
Assign to:: IVU
Physician / Group: Argueta
Diagnosis: pleural effusion
Reason for Hospitalization: pleural effusion/CT placement
Expected length of stay greater than two midnights?: Yes
ELOS- Estimated Length of Stay in days: 2
I certify the patient meets the requirements for IP care: Yes
08/11/25 12:10
PRN Pain Medication Management As Directed
May give lesser potent ordered pain med per pt: Yes
preference::
Protocol:: Medication orders for pain may be administered in a
manner that supports deferring to patient preference
when the pt is:
- Requesting an ordered lesser potent pain medication.
Least to most potent pain medications are defined
as: acetaminophen < NSAID < tramadol < opioids
(morphine, oxycodone, hydromorphone).
- Requesting a lesser dose of the same medication IF
ORDERED.
- Requesting a less intrusive route of administration
if both routes are prescribed by the provider (PO <
IV).
08/11/25 12:13
Code Status As Directed
Resuscitation Status: Full Code
08/11/25 12:27
Consult Interventional Radiology [IR[facility] CONSULT] Urgent
Consulting Provider: Nilay Perez
Was physician already notified: Yes
Procedure being ordered, including laterality if applicable: R sided chest tube for pleural effusion
Acknowledgement that appropriate orders are entered: Yes
Abnormal Lab Results
08/11/25 08/11/25
08:06 09:22
RBC 4.01 L 10^6/uL
(4.20-5.40)
MCV 106.0 H fL
(81.0-99.0)
MCH 34.2 H pg
(27.0-31.0)
MCHC 32.2 L g/dL
(33.0-37.0)
Lymphocytes % 17.1 L %
(20.5-51.1)
Glucose 118 H mg/dl
(70-99)
Total Protein 6.1 L g/dl
(6.3-8.2)
08/11/25 08:06
08/11/25 09:22
Vital Signs
Initial and Last Documented VS:
Initial Vital Signs
Temp Pulse Resp BP Pulse Ox
37.2 C 89 20 112/87 98
08/11/25 06:26 08/11/25 06:26 08/11/25 06:26 08/11/25 06:26 08/11/25 06:26
Last Documented Vital Signs
Temp Pulse Resp BP Pulse Ox
37.2 C 80 16 133/103 94
08/11/25 06:26 08/11/25 11:21 08/11/25 11:21 08/11/25 11:21 08/11/25 11:21
<Anam Ny MD - Last Filed: 08/11/25 07:57>
Orders/Labs/Results
Orders:
Orders
08/11/25 06:40
CR Chest - 2 Views Urgent
Comment:
Reason For Exam: h/o pleural effusion
08/11/25 06:51
Electrocardiogram (*1) Urgent
Reason for Study: Shortness of Breath
EKG- Treatment ONCE
CR Abdomen - 2 Views Urgent
Reason For Exam: constipation
08/11/25 07:39
CT Chest PE Study Urgent
Comment:
Reason For Exam: sob
08/11/25 08:06
Complete Blood Count/With Diff Urgent
NT-proBNP Urgent
PTT Urgent
Prothrombin Time Urgent
Troponin I Urgent
08/11/25 09:22
Comprehensive Metabolic Panel Urgent
08/11/25 12:09
Admit/Transfer Patient As Directed
Co-Sign Provider:
Level of Care: Observation services
Assign to:: IVU
Physician / Group: Argueta
Diagnosis: pleural effusion
Reason for Hospitalization: pleural effusion/CT placement
Expected length of stay greater than two midnights?: Yes
ELOS- Estimated Length of Stay in days: 2
I certify the patient meets the requirements for IP care: Yes
08/11/25 12:10
PRN Pain Medication Management As Directed
May give lesser potent ordered pain med per pt: Yes
preference::
Protocol:: Medication orders for pain may be administered in a
manner that supports deferring to patient preference
when the pt is:
- Requesting an ordered lesser potent pain medication.
Least to most potent pain medications are defined
as: acetaminophen < NSAID < tramadol < opioids
(morphine, oxycodone, hydromorphone).
- Requesting a lesser dose of the same medication IF
ORDERED.
- Requesting a less intrusive route of administration
if both routes are prescribed by the provider (PO <
IV).
08/11/25 12:13
Code Status As Directed
Resuscitation Status: Full Code
08/11/25 12:27
Consult Interventional Radiology [[facility] CONSULT] Urgent
Consulting Provider: Nilay Perez
Was physician already notified: Yes
Procedure being ordered, including laterality if applicable: R sided chest tube for pleural effusion
Acknowledgement that appropriate orders are entered: Yes
Abnormal Lab Results
08/11/25 08/11/25
08:06 09:22
RBC 4.01 L 10^6/uL
(4.20-5.40)
MCV 106.0 H fL
(81.0-99.0)
MCH 34.2 H pg
(27.0-31.0)
MCHC 32.2 L g/dL
(33.0-37.0)
Lymphocytes % 17.1 L %
(20.5-51.1)
Glucose 118 H mg/dl
(70-99)
Total Protein 6.1 L g/dl
(6.3-8.2)
08/11/25 08:06
08/11/25 09:22
Vital Signs
Initial and Last Documented VS:
Initial Vital Signs
Temp Pulse Resp BP Pulse Ox
37.2 C 89 20 112/87 98
08/11/25 06:26 08/11/25 06:26 08/11/25 06:26 08/11/25 06:26 08/11/25 06:26
Last Documented Vital Signs
Temp Pulse Resp BP Pulse Ox
37.2 C 80 16 133/103 94
08/11/25 06:26 08/11/25 11:21 08/11/25 11:21 08/11/25 11:21 08/11/25 11:21
<Kathi Meehan PA-C - Last Filed: 08/11/25 13:10>
MDM/Problems Addressed
Differential Diagnosis Includes:
see MDM
MDM/Problems Addressed:
Note:
CHIEF COMPLAINT(S)
Persistent cough and recent abdominal tightness with constipation.
HISTORY OF PRESENT ILLNESS
The patient is a 65-year-old female with a history of asthma who presents for shortness of breath worse since last night. Patient had a right sided lobectomy secondary to a sizable nodule on 10�1. She returned on 10�2 for ongoing dyspnea on
exertion and then shortness of breath at rest. Patient had a moderate right-sided pleural effusion. She was admitted and IR drained 900 cc of fluid from her right lung. She went home on 5-day course of Lasix. Patient says she started feeling
more short of breath yesterday and had a hard time sleeping. She was using her inhaler overnight which did not offer any relief. She did not feel like she was wheezing. She is not having any productivity of a cough but has had a chronic cough
since all of this began. The patient has ongoing difficulties with bowel movements, stating she has not had one in a week despite taking appropriate measures, such as stopping pain medication, which is known to cause constipation. However, there is
no associated abdominal pain or vomiting. She describes the sensation as feeling like 'a band right across here' indicating tightness in the abdominal region. There is no fever, throat pain, or notable changes in cough aside from persistence. She
has been weighing herself daily and her weights are a little bit down.
PAST MEDICAL AND SURGICAL HISTORY
History of asthma and previous drainage of a pleural effusion.
CHRONIC MEDICAL CONDITIONS SIGNIFICANTLY AFFECTING CARE
Asthma is noted as a chronic condition and relevant to the patients respiratory symptoms.
REVIEW OF SYSTEMS
-Respiratory: Persistent cough.
-Digestive: Constipation, sensation of abdominal tightness, no nausea or vomiting.
-General: No fever reported.
PHYSICAL EXAM
GENERAL: Alert , in no apparent distress, mild tachypnea with movement
EYE: pupils equal and reactive
NECK: Supple
ENT: o/p clr, mmm.
CARDIAC: Regular rate and rhythm .
LUNGS: diminished R lower lung, no wheezing, no crackles
ABDOMEN: Soft, without focal tenderness, no r/g, no cvat, normal bowel sounds
NEUROLOGICAL: Alert and oriented, no focal neuro deficits
SKIN: Warm and dry, skin intact.
MUSCULOSKELETAL: No edema, well perfused. neg kinga's sign
PSYCH: Normal and appropriate interaction.
Nursing notes reviewed and vital signs reviewed.
PROBLEM LIST
-Acute: Persistent cough, sensation of abdominal tightness with constipation.
-Chronic: Asthma.
PLAN
- Order a chest X-ray to assess fluid status in the right lung.
- Add an abdominal X-ray to determine the extent of stool retention.
DIFFERENTIAL DIAGNOSIS
The Differential Diagnosis includes, in no particular order and is not limited to:
1. Re-accumulation of pleural effusion
2. Constipation due to medication
3. Asthma exacerbation
4. Abdominal bloating or distension
5. Chronic obstructive pulmonary disease exacerbation
6. Lower respiratory tract infection
7. Pulmonary embolism
8. Liver or spleen enlargement
9. Functional bowel disorder
10. Malignancy-related cough or abdominal symptom.
CARE-UPDATE
08/11/25 - 12:00
5-year-old female 3 weeks postop right upper lobectomy by Dr. Argueta presents for the second time for shortness of breath. She was seen by me last week on found to have a moderate to large pleural effusion which was drained in IR. Patient says
she went home on Lasix for 5 days. Last night she started having more dyspnea and needed to sit upright to sleep. Patient is not having any pleuritic chest pain or leg swelling. Her weights been down since being on the Lasix. She does not feel
as short of breath as she did previously but was concerned about the dyspnea. She also was constipated but not having any nausea with eating, vomiting, abdominal distention. She was on opiates for her pain and taking MiraLAX and Dulcolax but has
not had a bowel movement in a few days
Patient's chest x-ray was not significantly positive, proceeded with a CT scan which did show a recurrence in her right pleural effusion. Consulted with Dr. Argueta, and consensus reached to keep patient hospitalized. Decision made to utilize a pigtail
catheter for continuous external drainage, avoiding previous method of complete fluid removal followed by discharge, as fluid re-accumulated too quickly last time. Dr. Draper, an interventional radiologist, has been consulted for pigtail catheter
insertion. Procedure anticipated to involve localized anesthesia, similar to previous intervention. Aim is to prevent further recurring fluid accumulation, allowing space to heal.
<Kathi Meehan PA-C - Last Filed: 08/11/25 13:10>
*Pulse Oximetry
SaO2: 98
Oxygen Mode of Delivery: Room air
Patient hypoxic: no (95)
*Critical Care Note
Total Time (30-74mins, 75-104mins- exclusive of procedures): Not Applicable
ED Attending Note
<Kathi Meehan PA-C - Last Filed: 08/11/25 13:10>
-
Portions of this chart may have been created with voice recognition software.� Occasional wrong word or��sound alike� substitutions may have occurred due to the inherent limitations of voice recognition software.
<Anam Ny MD - Last Filed: 08/11/25 07:57>
ED Attending Note
Patient seen and examined by attending physician: Yes
I performed the substantive portion of visit, reviewed & personally made and approve the management plan that is documented in note by myself or TAMY.: Yes
ED Attending Note:
65-year-old female complaining of recurrent shortness of breath. Recent lobectomy followed by thoracentesis for pleural effusion. That was about a week ago. The thoracentesis improved her symptoms. However last evening she started having more
shortness of breath and some shortness of breath with exertion. She uses an albuterol inhaler but with minimal relief. No cough no chest pain no pleuritic pain no fever.
On exam patient is nontoxic in no distress. Stable vital signs. Good pulse ox on room air.
No respiratory distress. No wheezing rhonchi or rales. Slight decreased breath sounds at the right base. Heart regular rate and rhythm no murmur. Abdomen nontender. Extremities are warm and dry. No cords or leg swelling
Impression is recurrent dyspnea. Likely related to her pleural effusion however pulmonary emboli needs to be ruled out. Highly doubt cardiac. No history of cardiac issues and patient has respiratory explanations for issues. Workup in progress.
Discharge Plan
Departure
Patient Disposition: Admit
Date of Disposition: 08/11/25
Time of Disposition: 11:42
Admit to: Telemetry
Admit to doctor: argueta
Presentation/result/management discussed w/ accepting MD/DO: argueta
Condition: Fair
Covid-19: Not Applicable
Discharge Problem:
Pleural effusion
Interventions
Interventions:
*Risk Screen - Suicide Last Done: 08/11/25 06:26
*General Assessment Last Done: 08/11/25 06:26
*Neglect/Abuse Screening Last Done: 08/11/25 06:26
*ED- Fall Risk Assessment Last Done: 08/11/25 06:26
*ED COVID-19 Vaccine History Last Done: 08/11/25 06:26
*ED Influenza Vaccine History Last Done: 08/11/25 06:26
ED- Cardiac Assessment Last Done: 08/11/25 06:25
ED- Pulmonary Assessment Last Done: 08/11/25 06:25
[2025-08-11 08:20] LABS: Hematocrit 42.5 % (37.0-47.0); Hemoglobin 13.7 g/dL (12.0-16.0); Mean Corp Hgb Conc. 32.2 g/dL (33.0-37.0); Mean Corpuscular Volume 106.0 fL (81.0-99.0); Nucleated Red Blood Cells % 0 %; Platelet Count 289 10^3/uL (130-400); Red Cell Dist. Width 14.0 % (11.5-14.5)
[2025-08-11 08:26] LABS: INR 0.97; PT 13.4 Sec (11.4-14.6)
[2025-08-11 08:27] LABS: APTT 24.9 Sec (23.4-35.0)
[2025-08-11 08:53] LABS: Troponin I < 0.012 ng/ml
[2025-08-11 10:02] LABS: ALT (SGPT) 10 U/L (0-35); AST (SGOT) 15 U/L (14-36); Albumin 3.7 g/dl (3.5-5.0); Alkaline Phosphatase 100 U/L (38-126); Blood Urea Nitrogen 15 mg/dl (7-17); Calcium 9.0 mg/dl (8.4-10.2); Carbon Dioxide 24 mmol/L (22-30); Chloride 106 mmol/L (98-107); Estimated Creatinine Clearance 90 ml/min; Glucose 118 mg/dl (70-99); Potassium 4.4 mmol/L (3.5-5.1); Sodium 136 mmol/L (135-145); Total Protein 6.1 g/dl (6.3-8.2); eGFR > 60.00
--- NOTE | 2025-08-11 16:03 | HPS.HSE ---
Family Physician
-
Family Physician: ROSEMARIE Guaman
Chief Complaint
-
Shortness of Breathe
History of Present Illness
65 y/o woman, who underwent RATS with Right upper Lobectomy/Radical Lymphadenectomy by Dr. Argueta on 07/19/25 and discharged home on 07/21/25. On 08/03, patient was complaining of shortness of breathe and patient was found to have a large right
pleural effusion. IR was able to drain 900ml of serous fluid. She was discharged on 08/04 with a 5 day course of lasix. On 08/11, patient presented to [facility] ER with complains of shortness of breathe. Chest Xray in the ER revealed a small right pleural
effusion and IR was consulted for CT placement. She is now being admitted for CT management and volume management.
Medical History
Past Medical History
Past Medical History: Reports Other
Additional Past Medical History:
UTIs
Diabetes
Hyperlipidemia
Hypothyroidism
Raynaud's disease
Depression/anxiety
PE and DVT
Exposure to asbestos
Shingles
Class I obesity (BMI 33.7)
Hypertension
Past Surgical History: Reports Other
Additional Past Surgical History:
Robotic assisted thoracic surgery (RATS), right upper lobectomy, radical lymphadenectomy
Social History
Tobacco: Non-smoker
Alcohol: Occasional
Drug: None
Personal:
Living: With Family
Employment: Retired
Family History
Family History: Not pertinent
Allergies / Home Medications
Allergies reflects when Allergies were last updated in igobubble.
Home Medications with original date entered in igobubble
Allergy/Medication List:
Home Medications
�Medication �Instructions �Recorded
diltiazem HCl 120 mg 180 mg PO QPM Arrhythmia 07/18/24
capsule,extended release 24 hr
(Cartia XT)
levothyroxine 175 mcg tablet 175 mcg PO DAILY Thyroid 07/18/24
lisinopril 10 mg tablet 20 mg PO DAILY Blood Pressure 07/18/24
montelukast 10 mg tablet 10 mg PO DAILY Allergies 07/18/24
(Singulair)
oxybutynin chloride 15 mg 15 mg PO HS Urinary Issue 07/18/24
tablet,extended release 24 hr
albuterol sulfate 90 mcg/actuation 2 puff inhalation R Q6HPRN PRN SOB 06/03/25
aerosol inhaler
lisinopril 10 mg tablet (Zestril) 10 mg PO HS Blood Pressure 06/03/25
metformin 500 mg tablet 500 mg PO DAILY Diabetes 06/03/25
fluticasone fur. 100 mcg-umeclid 1 inh inhalation R DAILY 07/06/25
62.5 mcg-vilant 25 mcg Lung/Breathing Issues
inhalat.powder (Trelegy Ellipta)
cyclobenzaprine 10 mg tablet 5 mg (1/2 x 10 mg) PO Q8HPRN PRN 07/21/25
muscle spasm #20 tabs
gabapentin 100 mg capsule 100 mg PO TID Neurological 08/02/25
Condition
ibuprofen 400 mg tablet 400 mg PO Q6HPRN PRN mild pain 08/02/25
losartan 50 mg tablet 50 mg PO DAILY Blood Pressure 08/02/25
melatonin 10 mg tablet 10 mg PO HS Sleep 08/11/25
oxycodone 5 mg tablet 5 mg PO Q4HPRN PRN severe pain 08/11/25
Allergies
Allergy/AdvReac Type Severity Reaction Status Date / Time
Sulfa (Sulfonamide Allergy Unknown Unknown Verified 08/11/25 06:26
Antibiotics)
Penicillins Allergy childhood; Verified 08/11/25 06:26
tolerates
ampicillin
Review of Systems
-
History Source: Patient
A 12 point ROS was completed and negative except as noted: Yes
Respiratory: Reports Cough and Other (SOB)
: Reports Dysuria and Urgency
Musculoskeletal: Reports No Symptoms
Skin: Reports No Symptoms
Neurological: Reports No Symptoms
Endocrine: Reports No Symptoms
Hematologic/Lymphatic: Reports No Symptoms
Psych: Reports No Symptoms
Physical Exam
Vital Signs
Vital Signs
Temp Pulse Resp BP Pulse Ox
98.2 F 80 11 144/103 97
08/11/25 15:15 08/11/25 15:15 08/11/25 15:15 08/11/25 15:15 08/11/25 15:15
Physical Exam
General: Well Developed, Well Nourished and No Apparent Distress
HEENT: NormoCephalic
Respiratory: Crackles and Non Labored Respirations
Cardiac: S1/S2 and Regular Rhythm
Breast: Deferred by me
GI: Soft and Non Tender
Genito-urinary: Deferred by me
Musculoskeletal: No Edema
Skin: Warm and Dry
Neuro: AO x 3
Hematologic/Lymphatic: No Lymphadenopathy
Psych: Calm
Laboratory Results
-
08/11/25 08:06
08/11/25 09:22
Laboratory Results
PT 13.4 Sec (11.4-14.6) 08/11/25 08:06
INR 0.97 08/11/25 08:06
APTT 24.9 Sec (23.4-35.0) 08/11/25 08:06
Total Bilirubin 0.5 mg/dl (0.2-1.3) 08/11/25 09:22
AST 15 U/L (14-36) 08/11/25 09:22
ALT 10 U/L (0-35) 08/11/25 09:22
Alkaline Phosphatase 100 U/L (38-126) 08/11/25 09:22
Troponin I < 0.012 ng/ml 08/11/25 08:06
Impression/Plan
-
IMPRESSION:
65 y/o female s/p RATS with RUL/radial lymphadenectomy represents with shortness of breathe and was found to have a pleural effusion.
PLAN:
#Right pleural effusion
- continue CT to -20mmHg suction
- follow up cultures
- daily lasix order
- i&o
- pain control
#UTI
- will start augmentin x 7 days
#Constipation
- Miralax and rectal dulcolax
- daily senna
- last BM 1 week ago
[2025-08-11] MEDS: FLEXERIL 5 MG PO (17:30)
[2025-08-11] MEDS: ROXICODONE 5 MG PO ×2 (17:30→21:31)
[2025-08-11] MEDS: CARDIZEM CD 180 MG PO (17:45)
[2025-08-11] MEDS: DULCOLAX RECTAL (17:45)
[2025-08-11] MEDS: NEURONTIN 100 MG PO ×2 (17:45→22:45)
[2025-08-11] MEDS: MIRALAX 17 GRAMS PO (17:45)
[2025-08-11] MEDS: LASIX 40 MG PO (17:48)
--- NOTE | 2025-08-11 18:08 | PTCARENOTE ---
pt arrived form IR via ED. right chest tube in place to wall suction. draining yellow. pain med given as ordered. breath sounds clear. pt ambulated to bathroom.
[2025-08-11] MEDS: AUGMENTIN 875 MG/125 MG 1 TABLET PO (19:34)
[2025-08-11] MEDS: DULCOLAX 10 MG RECTAL (19:36)
[2025-08-11] MEDS: DITROPAN 5 MG PO (22:45)
[2025-08-11] MEDS: MELATONIN 10 MG PO (22:45)
[2025-08-11] MEDS: ZESTRIL 10 MG PO (22:45)
[2025-08-12] VITALS (10 sets, daily range): BP systolic 89–121; BP diastolic 52–80; BMI 31.6
[2025-08-12] MEDS: TYLENOL 650 MG PO ×3 (00:23→21:03)
--- NOTE | 2025-08-12 02:22 | PTCARENOTE ---
Assumed care for patient overnight. Pt AAOx3. NSR. VSS. R chest tube in place to wall suction. Yellow drainage. Dressing is C/D/I. Pt c/o constipation, last reported BM was a week ago. Dulcolax suppository administered. Dedra care done. Pt utilizing
the BSC. PRN pain medication administered see DEC. Pt placed on 2L NC while sleeping to keep sat >92. Pt denies any SOB. Assessment and care as charted. Call christensen within reach.
[2025-08-12] MEDS: FLEXERIL 5 MG PO ×2 (02:34→11:11)
[2025-08-12] MEDS: SYNTHROID 175 MCG PO (05:21)
[2025-08-12] MEDS: ROXICODONE 5 MG PO ×3 (05:21→17:00)
[2025-08-12 05:25] LABS: Hematocrit 37.3 % (37.0-47.0); Hemoglobin 12.4 g/dL (12.0-16.0); Mean Corp Hgb Conc. 33.2 g/dL (33.0-37.0); Mean Corpuscular Volume 103.0 fL (81.0-99.0); Platelet Count 280 10^3/uL (130-400); Red Cell Dist. Width 14.2 % (11.5-14.5)
[2025-08-12 05:42] LABS: INR 1.00; PT 13.7 Sec (11.4-14.6)
[2025-08-12 05:43] LABS: APTT 26.0 Sec (23.4-35.0)
[2025-08-12 05:51] LABS: Blood Urea Nitrogen 15 mg/dl (7-17); Calcium 8.8 mg/dl (8.4-10.2); Carbon Dioxide 24 mmol/L (22-30); Chloride 103 mmol/L (98-107); Estimated Creatinine Clearance 77 ml/min; Glucose 101 mg/dl (70-99); Magnesium 1.7 mg/dl (1.6-2.3); Potassium 4.7 mmol/L (3.5-5.1); Sodium 132 mmol/L (135-145); eGFR > 60.00
[2025-08-12] MEDS: SPIRIVA RESPIMAT 2.5 MCG 2 PUFF INH (07:45)
[2025-08-12] MEDS: SYMBICORT 80/4.5 MCG INHALER 2 PUFF INH ×2 (07:45→19:28)
[2025-08-12] MEDS: COZAAR 50 MG PO (08:24)
[2025-08-12] MEDS: AUGMENTIN 875 MG/125 MG 1 TABLET PO ×2 (08:25→19:32)
[2025-08-12] MEDS: SINGULAIR 10 MG PO (08:25)
[2025-08-12] MEDS: LASIX 40 MG PO (08:25)
[2025-08-12] MEDS: ZESTRIL 20 MG PO (08:26)
[2025-08-12] MEDS: DITROPAN 5 MG PO ×3 (08:26→21:02)
[2025-08-12] MEDS: NEURONTIN 100 MG PO ×3 (08:26→21:02)
--- NOTE | 2025-08-12 08:48 | W.PN.CT ---
Today's Communication / Plan
-
s/p placement of a 10 Thai pigtail chest tube on 08/11 by IR
-CT output 900 total, no air leak
-follow CXR
-possible d/c soon
Assessment / Plan
-
65-year-old with recurrent right-sided pleural effusion, s/p recent lobectomy
-s/p placement of a 10 Thai pigtail chest tube on 08/11 by IR
-CT output 900 total, no air leak
-follow CXR
.
Subjective
-
Date of Service: August 12, 2025
Objective Data
-
Lab Results
08/12/25 05:07
08/12/25 05:07
PT 13.7 Sec (11.4-14.6) 08/12/25 05:07
INR 1.00 08/12/25 05:07
APTT 26.0 Sec (23.4-35.0) 08/12/25 05:07
Vital Signs
Vital Signs
Temp Pulse Resp BP Pulse Ox
97.5 F 63 16 121/80 97
08/12/25 03:00 08/12/25 08:26 08/12/25 07:53 08/12/25 08:26 08/12/25 07:53
CT Intake/Output/Weight
08/11/25 08/12/25 08/12/25
18:59 06:59 18:59
Intake Total 400 / 400
Output Total 900 / 900
Balance 400 / -500 -900 / -500
SaO2: 97
Physical Exam
-
General: Awake and AOx3
Cardiovascular: Regular rate & rhythm and No Murmurs
Respiratory: Decreased Breath Sounds
Data Reviewed
-
Lab Results: Results Reviewed
Chest X-Ray: Report Reviewed and Image Reviewed
ECG: Report Reviewed and Image Reviewed
[2025-08-12 09:11] LABS: Glucose - Point of Care 87 mg/dl (70-99)
[2025-08-12] MEDS: MIRALAX 17 GRAMS PO (11:11)
[2025-08-12 11:27] LABS: Glucose - Point of Care 86 mg/dl (70-99)
--- NOTE | 2025-08-12 12:46 | CM ---
I.A: Completed By MAUREEN Wiley.
Patient lives with her in a 2 Story House with 1 step to enter, only has a cane she uses outside the home, a CPAP machine, had [facility] in the past, and no Inpatient Rehab.
PCP: Dr. Mary Moe
Pharmacy: [facility]
Patient has transportation home when ready. May need VN care. PLAN: Home with VN vs. No Needs
--- NOTE | 2025-08-12 16:13 | PTCARENOTE ---
Rec'd pt this AM. OOB x1, pain is well controlled with current PRN meds. yellow output from CT. vital signs stable.
[2025-08-12] MEDS: CARDIZEM CD 180 MG PO (16:57)
--- NOTE | 2025-08-12 17:16 | PTCARENOTE ---
Updated CT surgery PA. Pt's has had some soft BPs today. She ordered hold Diltiazem if sys less than 100. Also updated on no CT output for dayshift. Pt had 900ml over 24 hours due to the initial output of 780ml, then 120ml overnight, then 0 on
dayshift.
[2025-08-12 17:31] LABS: Glucose - Point of Care 107 mg/dl (70-99)
[2025-08-12] MEDS: MELATONIN 10 MG PO (21:02)
[2025-08-12] MEDS: ZESTRIL PO (21:02)
[2025-08-12 21:48] LABS: Glucose - Point of Care 134 mg/dl (70-99)
[2025-08-13 00:01] VITALS: BP 96/82
--- NOTE | 2025-08-13 03:04 | PTCARENOTE ---
Patient pain levels improving. Pt still c/o pain to the R CT site, however improving. CT with yellow output. Pt ambulating to the BSC with standby assistance. BP soft. Placed on 2L O2 while sleeping, 96%.
[2025-08-13 04:00] VITALS: BP 102/71
[2025-08-13] MEDS: SYNTHROID 175 MCG PO (05:09)
[2025-08-13 06:00] VITALS: BMI 31.3
[2025-08-13] MEDS: SYMBICORT 80/4.5 MCG INHALER 2 PUFF INH (07:27)
[2025-08-13] MEDS: SPIRIVA RESPIMAT 2.5 MCG 2 PUFF INH (07:28)
[2025-08-13 08:00] VITALS: BP 110/84
[2025-08-13 08:36] LABS: Glucose - Point of Care 86 mg/dl (70-99)
[2025-08-13] MEDS: SINGULAIR 10 MG PO (08:39)
[2025-08-13] MEDS: AUGMENTIN 875 MG/125 MG 1 TABLET PO (08:39)
[2025-08-13] MEDS: COZAAR 50 MG PO (08:39)
[2025-08-13] MEDS: DITROPAN 5 MG PO (08:39)
[2025-08-13] MEDS: ROXICODONE 5 MG PO ×2 (08:39→15:32)
[2025-08-13] MEDS: NEURONTIN 100 MG PO (08:39)
[2025-08-13] MEDS: LASIX 40 MG PO (08:39)
[2025-08-13] MEDS: ZESTRIL 20 MG PO (08:40)
[2025-08-13 09:34] LABS: Hematocrit 42.7 % (37.0-47.0); Hemoglobin 14.6 g/dL (12.0-16.0); Mean Corp Hgb Conc. 34.2 g/dL (33.0-37.0); Mean Corpuscular Volume 107.0 fL (81.0-99.0); Platelet Count 288 10^3/uL (130-400); Red Cell Dist. Width 14.3 % (11.5-14.5)
--- NOTE | 2025-08-13 10:19 | W.PN.CT ---
Today's Communication / Plan
-
s/p placement of [address] on 08/11 by IR
- CT output 70 mL/24-hours, serous
- Repeat CXR in AM without PTX or effusion, mild atelectasis
- Increase ambulation/IS
- Con't Augmentin for UTI, day 11/13
- Con't bowel regiment as outlined below
- Mechanical DVT PPx
- likely dc soon
Assessment / Plan
-
65-year-old with recurrent right-sided pleural effusion, s/p recent lobectomy (07/19/[address] Argueta) who presented with complaints of SOB
#Right Pleural Effusion
- s/p placement of a 10 Omani pigtail chest tube on 08/11 by IR with 900 mL serous fluid drained
- CT output 70 total overnight, no air leak
- Follow-up CXR in AM without PTX or effusion, mild atelectasis - IS/CDB encouraged
- Con't CT to -20 cm H2O suction, okay to ambulate off suction as ordered
- Continue to monitor I & O
- Daily Lasix 40 mg/d continued
#UTI
- continue Augmentin, day 11/13
#Constipation
- Reports BM 08/12, small motility 08/13 in AM
- s/p Miralax & dulcolax supp x 1
- Senna BID continued
- Rectal Dulcolax ordered today as patient requested
- Encouraged ambulation
Discussed patient care with: Nursing
Subjective
-
Date of Service: August 13, 2025
Objective Data
-
Lab Results
08/13/25 09:17
PT 13.7 Sec (11.4-14.6) 08/12/25 05:07
INR 1.00 08/12/25 05:07
APTT 26.0 Sec (23.4-35.0) 08/12/25 05:07
Vital Signs
Vital Signs
Temp Pulse Resp BP Pulse Ox
97.5 F 76 18 110/84 95
08/13/25 06:07 08/13/25 08:40 08/13/25 08:00 08/13/25 08:40 08/13/25 08:00
CT Intake/Output/Weight
08/12/25 08/13/25 08/13/25
18:59 06:59 18:59
Intake Total 240 / 240
Output Total 0 / 75 75 / 75
Balance 0 / -75 -75 / -75 240 / 240
SaO2: 95
Physical Exam
-
General: Awake, Oriented and AOx3
Cardiovascular: Regular rate & rhythm
Respiratory: Clear, Equal and Decreased Breath Sounds (R base)
Incision: Other (CT dressing CDI)
Extremities: No Edema
Data Reviewed
-
Lab Results: Results Reviewed
Medications: Active Meds Reviewed
Chest X-Ray: Report Reviewed and Image Reviewed
[2025-08-13] MEDS: DULCOLAX 10 MG RECTAL (11:08)
[2025-08-13 11:17] LABS: Blood Urea Nitrogen 23 mg/dl (7-17); Calcium 8.9 mg/dl (8.4-10.2); Carbon Dioxide 24 mmol/L (22-30); Chloride 101 mmol/L (98-107); Estimated Creatinine Clearance 61 ml/min; Glucose 107 mg/dl (70-99); Magnesium 2.0 mg/dl (1.6-2.3); Potassium 4.5 mmol/L (3.5-5.1); Sodium 134 mmol/L (135-145); eGFR > 60.00
[2025-08-13 12:49] VITALS: BP 101/72
[2025-08-13 12:58] LABS: Glucose - Point of Care 80 mg/dl (70-99)
--- NOTE | 2025-08-13 14:51 | W.PN.UPDATE ---
Update Note
Progress Note Update
right pigtail chest tube removed at bedside without incident by me per orders from Dr. Argueta. Pt tolerated very well. Plan is for discharge to home today with follow up with Dr. Argueta in ~1 week with repeat CXR prior. Pt to keep current chest tube
dressing intact x 24hrs, then OK to remove & shower as usual. Cover wound if needed with dry gauze/tegaderm.
--- NOTE | 2025-08-13 15:42 | PTCARENOTE ---
Patient AOx3. On RA with SpO2 greater than 92%. NSR on monitor. BP stable. Chest tube removed at bedside by provider. Assist x1 to bedside commode. Tolerating oral diet.
--- NOTE | 2025-08-13 15:42 | PTCARENOTE ---
D/C paperwork completed with patient. IV removed. Patient transport escorted patient via wheelchair.
--- NOTE | 2025-08-13 16:06 | W.DCSUMMARY ---
Discharge Summary
Discharge Data
Date of Admission: 08/11/25
Date of Discharge: 08/13/25
-
Pending Results: No
Hospital Course
Primary care physician: Dr. Mary Clayton
Outpatient wardrobe mistress: Dr. Jones
Inpatient consultants: Interventional Radiology
Procedures:
1. Placement of R pleural CT (10 Fr pigtail) by IR on 08/11/25
Primary Diagnosis:
1. Right Pleural Effusion
Secondary Diagnoses:
s/p Robotic assisted thoracic surgery (RATS), right upper lobectomy, radical lymphadenectomy on 07/19/[address] Sunny Argueta
UTI
Constipation
Diabetes
Hyperlipidemia
Hypothyroidism
Raynaud's disease
Depression/anxiety
PE and DVT
Exposure to asbestos
Shingles
Class I obesity (BMI 33.7)
Hypertension
HPI: Ms. Turner is a 65-year-old female who underwent RATS with right upper lobectomy/radial lymphadenectomy by Dr. Argueta on 07/19/25 who presented to [facility] ED on 08/11/25 with complaints of shortness of breath. From her initial surgery on 07/19/2025,
she was discharged home on 07/21/2025. On 08/03/2025, patient reported increasing shortness of breath and was found to have large right pleural effusion. At that time she underwent a thoracentesis with interventional radiology and had 900 mL of
serous fluid drained and was discharged on 08/04/2025 with a 5-day course of Lasix 40 mg p.o. daily. On 08/11/2025, patient presented to ED with complaints of shortness of breath. Chest x-ray at that time showed small right pleural effusion and IR
was consulted for chest tube placement. She was admitted for chest tube management and volume management. She further reported constipation and dysuria in which she was found to have a UTI.
Hospital course: Patient presented on 08/11/2025 with complaints of progressive shortness of breath. Chest x-ray showed a small right pleural effusion. Interventional radiology was consulted and a right pleural chest tube was placed with initial
output of 900 mL serous fluid. Chest tube was maintained to -20 cm H2O suction and assessed for output. She was admitted in observation for chest tube management and Velasquez management. On 08/12/2025 she had 20 mL of serous output within her chest
tube. On 08/13/2025 she had a total of 75 mL of serous output within her tube. Her chest tube was discontinued with plan to continue oral diuresis upon discharge.
Her weight upon discharge on 07/19/2025 was 89.9 kg. Her weight upon discharge today was 88 kg. She was continued on 40 mg Lasix daily until follow-up with Dr. Argueta. She was sent home with plan to follow-up with Dr. Argueta in 1 week in order to
obtain a chest x-ray prior to appointment. She was instructed on wound care from chest tube insertion site which included maintaining dressing for 24 hours after chest tube removal and showering daily. She was continued on her Augmentin for a
total course of 7 days due to her UTI. Her constipation was alleviated with stool softeners, stimulants, and suppository. She was discharged home with an as needed regimen for reference. She was given education on when to call the office if
further concerns arise until her follow-up.
Home medication changes:
See medication list below.
Discharge Plan
-
Patient Disposition: Home (Routine Discharge)
Discharge Diagnosis/Procedures: Recurrent Large Right Pleural Effusion s/p Thoracentesis with Placement of Right Pigtail Catheter by Interventional Radiology on 08/11/25
Condition: Fair
Diet: Low Fat, Low Cholesterol and Diabetic, Carb Controlled
Activity: As tolerated
Bathing Restrictions: OK to Shower
Others Tests: Obtain Chest X-Ray in 1-week, prior to seeing Dr. Argueta in the office.
>Order is placed. Visit registration desk at main entrance of hospital upon arrival.
Wound Care: Can remove chest tube dressing in 24-hours form discharge.
>Can remove dressing around 3:00 pm on 08/14/25.
->Can shower following Chest Tube dressing removal.
Keep site clean and dry.
Do not apply any lotions, creams, or marks to area.
Specialty Instructions: Weigh Daily- Call MD for wt gain/loss 3 lbs overnight/5 lbs in 1 week
Referrals:
Mary Clayton CRNP [Family Provider, [facility]]
Sunny Argueta MD [Active, Cardiac Surgery] - 08/23/25 3:00 pm
Referral Note: Follow-up s/p pleural effusion following RUL LN Dissection.
Pleast obtain Chest X-Ray prior to appointment.
Prescriptions:
New
furosemide 40 mg Tablet
40 mg PO DAILY 7 Days Qty: 7 0RF
acetaminophen 325 mg Tablet
650 mg PO Q4HPRN PRN (Reason: mild pain/MELENDREZ/temp> 100.4F) Qty: 0 0RF
polyethylene glycol 3350 17 gram Powder In Packet
17 g PO DAILYPRN PRN (Reason: constipation) Qty: 0 0RF
sennosides-docusate sodium [Senna Plus] 8.6-50 mg Tablet
1 tab PO BIDPRN PRN (Reason: constipation) Qty: 0 0RF
bisacodyl 10 mg Suppository
10 mg LA [id number] PRN (Reason: constipation) Qty: 0 0RF
amoxicillin-pot clavulanate 875-125 mg Tablet
1 tab PO Q12 5 Days Qty: 10 0RF
Continued
levothyroxine 175 mcg Tablet
175 mcg PO DAILY
oxybutynin chloride 15 mg Tablet Extended Release 24hr
15 mg PO HS
lisinopril 10 mg Tablet
20 mg PO DAILY
diltiazem HCl [Cartia XT] 120 mg Capsule,Extended Release 24hr
180 mg PO QPM
montelukast [Singulair] 10 mg Tablet
10 mg PO DAILY
lisinopril [Zestril] 10 mg Tablet
10 mg PO HS
albuterol sulfate 90 mcg/actuation Hfa Aerosol Inhaler
2 puff INHALATION R Q6HPRN PRN (Reason: SOB)
metformin 500 mg Tablet
500 mg PO DAILY
Trelegy Ellipta 100-62.5-25 mcg Blister With Device
1 inh INHALATION R DAILY
cyclobenzaprine 10 mg Tablet
5 mg PO Q8HPRN PRN (Reason: muscle spasm) Qty: 20 0RF
losartan 50 mg Tablet
50 mg PO DAILY
gabapentin 100 mg capsule
100 mg PO TID
melatonin 10 mg Tablet
10 mg PO HS
oxycodone 5 mg tablet
5 mg PO Q4HPRN PRN (Reason: severe pain)
Discontinued
ibuprofen 400 mg tablet
400 mg PO Q6HPRN PRN (Reason: mild pain)
Discharge Orders:
Discharge Patient (As Directed); Ordered 08/13/25
Ordered By: Angy Fitzpatrick
Discharge Date and Time
Discharge Date/Time: 08/13/25 15:45
Print Language: ROMANIAN
--- NOTE | 2025-08-13 18:08 | CM ---
F/U: Patient's chest tube removed so now has no DC needs. IMM completed. PLAN: DC to home No Needs.
== END 2025-08-13 15:45 | disposition home or self-care (01) ==
LOC: IMU 12:59
PROVIDERS: Clinical Nurse Specialist Acute Care; Physician Assistant; ADMITTING PHYSICIAN Thoracic Surgery (Cardiothoracic Vascular Surgery); EMERGENCY PHYSICIAN Emergency Medicine; FAMILY PHYSICIAN Nurse Practitioner Family
DX: J90 Pleural effusion, not elsewhere classified (principal); R06.02 Shortness of breath; K59.00 Constipation, unspecified; J45.909 Unspecified asthma, uncomplicated; E11.9 Type 2 diabetes mellitus without complications; N39.0 Urinary tract infection, site not specified; J98.11 Atelectasis; M95.4 Acquired deformity of chest and rib; R94.31 Abnormal electrocardiogram [ECG] [EKG]; E78.5 Hyperlipidemia, unspecified; E03.9 Hypothyroidism, unspecified; I10 Essential (primary) hypertension; I73.00 Raynaud's syndrome without gangrene; F41.9 Anxiety disorder, unspecified; F32.A Depression, unspecified; Z87.440 Personal history of urinary (tract) infections; Z90.2 Acquired absence of lung [part of]; Z86.718 Personal history of other venous thrombosis and embolism; Z86.711 Personal history of pulmonary embolism; Z77.090 Contact with and (suspected) exposure to asbestos; E66.811 Obesity, class 1; Z68.33 Body mass index [BMI] 33.0-33.9, adult; Z79.890 Hormone replacement therapy; Z79.899 Other long term (current) drug therapy; Z79.84 Long term (current) use of oral hypoglycemic drugs; Z88.2 Allergy status to sulfonamides; Z88.0 Allergy status to penicillin; Z79.51 Long term (current) use of inhaled steroids
CPT/HCPCS: 32557; 71045; 71046; 71275; 74019; 80048; 80053; 82042; 82962; 83615; 83735; 83880; 83986; 84157; 84478; 84484; 85025; 85027; 85610; 85730; 93005; 94640; 99152; 99153; 99285; G0378; Q9967

== ENCOUNTER → 2025-08-23 12:34 | Outpatient (REF) | payer OTHER, SELFPAY | LOC: RAD 12:34 | PROVIDERS: ATTENDING PHYSICIAN Thoracic Surgery (Cardiothoracic Vascular Surgery) | DX: Z90.2 Acquired absence of lung [part of] (principal); J90 Pleural effusion, not elsewhere classified | CPT/HCPCS: 71046 ==